=== PATIENT | male | born 1970 | race Caucasian/White ===

== ENCOUNTER 2018-09-15 16:10 | Inpatient (IN) | payer OTHER ==
[~2018-09-15] VITALS: Ht 154.9 cm; Wt 44.0 kg
[2018-09-15 18:20] VITALS: BP 101/59
--- NOTE | 2018-09-15 18:20 | NUR ---
PACKING LINE WORKER NOTES PATIENT DIRECT ADMIT FROM [facility] ON MED/SURGE DX OF ANEMIA. PATIENT A/O X3, NO ACUTE RESPIRATORY DISTRESS. PATIENT WAS COMPLAINING OF PAIN 5/10 LOWER BACK, AND BILATERAL LOWER LEGS. SKIN ASSESSMENT DONE INTACT ONLY DRYNESS BOTH FEET. PATIENT CONTENT URINAL GIVEN. V/S TAKEN T-99.5, R-20, P-95, BP-101/59, O2-97 ROOM AIR. IV ACCESS ON RIGHT WRIST INTACT. CARE PLAN DONE. IGGY DNP AWARE OF NEW PATIENT AND MEDICATION. FAMILY AWARE OF PATIENT ADMISSION. ENDORSED ONCOMING NURSE FOLLOW ADMISSION QUESTIONS.
[2018-09-15] MEDS ORDERED: LEVE250T2 PO (18:21)
[2018-09-15] MEDS ORDERED: PHEN100C4 PO (18:26)
--- NOTE | 2018-09-15 18:27 | NUR ---
TICK INSPECTOR/MED RECON OBTAINED INFO RE: HOME MEDICATION FROM PATIENT. CALLED AND SPOKE WITH BREEZY-BROTHER STATED "MY BROTHER SAID, HE ONLY TAKES DILANTIN AND HE DOESN'T REMEMBER THE DOSE". PER BROTHER "HE IS HOMELESS BY CHOICE BECAUSE HE LIKES DRINKING ONLY". PRIMARY NURSE MADE AWARE.
[2018-09-15] MEDS ORDERED: ACETAMINOPHEN 325 MG TABLET PO PRN (19:00)
[2018-09-15 20:00] VITALS: BP 103/43
--- NOTE | 2018-09-15 20:00 | NUR ---
RECEIVED PATIENT IN BED ASLEEP, EASILY AROUSABLE. AO X 3, ABLE TO MAKE NEEDS KNOWN. NO ACUTE DISTRESS NOTED. MONITORED FOR PAIN. SKIN INTACT. IV SITE PATENT, INTACT; FLUSHED. SAFETY REMINDERS GIVEN. ON LOW BED WITH BILATERAL UPPER SIDE RAILS UP. CALL [place] WITHIN EASY REACH. WILL CONTINUE TO MONITOR.
[2018-09-15 20:53] VITALS: BP 103/43
[2018-09-16] VITALS (10 sets, daily range): BP systolic 97–135; BP diastolic 59–110
[2018-09-16] MEDS ORDERED: LORAZEPAM INJ 2 MG/ML VIAL IV PRN (01:00)
[2018-09-16] MEDS ORDERED: Z GUARD REMEDY 2 OZ OINT TP PRN (01:00)
[2018-09-16] MEDS ORDERED: Potassium Chloride 20 MEQ in IV D5/ 0.9% NACL 1,000 ML IV PRN (01:00)
[2018-09-16] MEDS ORDERED: ACETAMINOPHEN 650 MG/SUPP.RECT RC PRN (01:00)
[2018-09-16] MEDS ORDERED: MORPHINE SULFATE INJ 2 MG/ML DISP.SYRIN IV PRN (01:00)
[2018-09-16] MEDS ORDERED: ONDANSETRON HCL/PF 4 MG/2 ML VIAL IVP PRN (01:00)
[2018-09-16] MEDS ORDERED: CEFTRIAXONE 1 G VIAL ONE (02:37)
[2018-09-16] MEDS: CEFTRIAXONE 1 G in IV D5W 50 ML IV SCH (02:44)
[2018-09-16] MEDS ORDERED: Thiamine 100 MG/ML VIAL ONE (03:38)
[2018-09-16] MEDS ORDERED: IV PREMIX D5 1/2NS + KCL 1,000 ML IV ONE (03:38)
[2018-09-16] MEDS ORDERED: Folic acid 1 MG/0.2 ML VIAL ONE (03:39)
[2018-09-16] MEDS: IV PREMIX D5 1/2NS + KCL 1,000 ML IV PRN (03:50)
[2018-09-16] MEDS: Folic acid 1 MG in IV D5W 50 ML IV SCH (03:51)
[2018-09-16] MEDS: Thiamine 100 MG in IV D5W 50 ML IV SCH (04:35)
--- NOTE | 2018-09-16 06:00 | NUR ---
PATIENT AWAKE. RESPIRATIONS EVEN. MONITORED FOR PAIN. DUE MEDS GIVEN WITH NO ASE NOTED. IVF INFUSING ORDERED. PATIENT TOLERATING BLOOD TRANFUSION. NO ADVERSE REACTION TO BLOOD TRANSFUSION NOTED. NEEDS ATTENDED. SAFETY PRECAUTIONS AND COMFORT MEASURES IN PLACE. WILL GIVE REPORT TO DAY SHIFT FOR CONTINUITY OF CARE.
[2018-09-16] MEDS ORDERED: PANTOPRAZOLE 40 MG VIAL IV SCH (07:30)
--- NOTE | 2018-09-16 07:35 | NUR ---
RN OPENING NOTE PT WAS RECEIVED IN BED AT LOWEST AND LOCKED POSITION WITH SIDE RAILS UP X2, A/O X3 BREATHING EVEN AND UNLABORED ON RA, NO S/S OF ANY DISTRESS OR PAIN NOTED AT THIS TIME, IV IS PATENT AND INTACT WITH BLOOD TRANSFUSION JUST FINISHING AT THIS TIME, PT IS CURRENTLY NPO, SAFETY PRECAUTIONS IN PLACE, CALL LIGHT WITHIN REACH, WILL MONITOR PT ACCORDINGLY.
[2018-09-16] MEDS ORDERED: LEVETIRACETAM (250 MG) 250 MG TABLET PO SCH (09:00)
[2018-09-16 09:24] LABS: ALBUMIN 2.1 g/dL (3.4-5.0); BILIRUBIN,TOTAL 3.5 mg/dL (0.2-1.0); CALCIUM, SERUM 6.8 mg/dL (8.5-10.1); CREATININE 0.6 mg/dL (0.6-1.3); MAGNESIUM 1.5 mg/dL (1.8-2.4); PHOSPHORUS 1.3 mg/dL (2.5-4.9); TOTAL PROTEIN, SERUM 6.5 g/dL (6.4-8.2)
[2018-09-16] MEDS: GENTAMICIN OPTH SOLN 0.3% 5 ML BOTTLE EACHEYE SCH ×4 (09:25→23:15)
[2018-09-16 09:32] LABS: THYROID STIMULATING HORMONE 4.64 uIU/mL (0.358-3.74)
[2018-09-16 09:36] LABS: BASOPHILS % (AUTO) 0.5 % (0.0-2.0); EOSINOPHILS % (AUTO) 2.6 % (0.0-6.0); HEMATOCRIT 23 % (39-51); HEMOGLOBIN 7.3 g/dL (13.5-17.5); LYMPHOCYTES # (AUTO) 1.4 /CMM (0.8-4.8); LYMPHOCYTES % (AUTO) 25.2 % (20.0-44.0); MEAN CORPUSCULAR HGB CONC 32 g/dl (31.0-36.0); MEAN CORPUSCULAR VOLUME 87 fL (80-96); MONOCYTES # (AUTO) 0.4 /CMM (0.1-1.30); MONOCYTES % (AUTO) 7.7 % (2.0-12.0); NEUTROPHILS # (AUTO) 3.5 /CMM (1.8-8.9); RED BLOOD CELL COUNT(AUTO) 2.62 MIL/uL (4.5-6.0); WHITE BLOOD COUNT (AUTO) 5.5 K/uL (4.3-11.0)
[2018-09-16 09:41] LABS: LIPASE 69 U/L (73-393)
[2018-09-16 09:44] LABS: IRON, SERUM 172 ug/dl (50-175); PLATELET COUNT (AUTO) 45 /CMM (150-450); TOTAL IRON BINDING CAPACITY 155 ug/dl (250-450)
[2018-09-16] MEDS: LEVETIRACETAM (500MG) 1,500 MG in IV NS 0.9% 100 ML IV SCH ×2 (09:56→23:15)
--- NOTE | 2018-09-16 10:14 | NUR ---
RN NOTE HOSPITALIST NANCY MARTINEZ MADE AWARE OF PT PLATELET LEVEL OF 45, NO NEW ORDERS RECEIVED AT THIS TIME
[2018-09-16 10:27] LABS: BAND % (MANUAL) 2 % (0.0-5.0); EOSINOPHILS % (MANUAL) 3 % (0-4); LYMPHOCYTES % (MANUAL) 22 % (16-48); MONOCYTES % (MANUAL) 4 % (0-11.0); NEUTROPHILS % (MANUAL) 69 (42-76)
--- NOTE | 2018-09-16 11:47 | NUR ---
Social service consult requested by TALITA Zimmerman for homelessness. Pt. is a 48 year old male who was admitted to [facility] for anemia. AMIRAH met with pt. bedside. Pt. is alert and oriented x 4. Pt. initially was guarded, however as the assessment continued pt. was more cooperative and forthcoming. Pt. appears dirty and disheveled. Pt. appears thin and frail. Pt. informed SW he has been living in his car in [place] since last February. Pt. receives GR and Food stamps, however his GR is currently needs to be reinstated. AMIRAH encouraged pt. to go to [employer] office and reinstate his GR. Pt. states he will go again to the [employer] office located at [address] [place] [phone], in [place]. Pt. informed SW he sold his car for $400 to his friend and is hoping to get it back. Pt. states, he often sells his food stamps to have a place to stay at his friend's place. AMIRAH informed pt. he is taking risk of losing his food stamps if [employer] finds out he is selling them. Prior to living in his car, pt. was living with his uncle who . Pt. states he used to drink 4 to 6 beers per day, however, now he drinks a beer per day. Pt. states he use to smoke marijuana a lot but now only smokes at night to help him fall asleep. AMIRAH offered pt. homeless nursing home placement, however pt. declined stating he is going to go back to his friend and get his car back. No other social service needs are requested at this time. AMIRAH to offer pt. homeless resources prior to discharge. Pt. will require a TAP card upon discharge. AMIRAH also encouraged pt. to go to [facility] located at [address] and link up for services with case workers there. SW is available if needed.
[2018-09-16] MEDS ORDERED: Sodium Phosphate 15 MMOL in IV D5W 250 ML IV ONE (13:00)
[2018-09-16] MEDS: ENSURE CLEAR 237 ML LIQUID (MIX BERRY) PO SCH (17:03)
[2018-09-16] MEDS: SUCRALFATE 1 G/10 ML UDC GT SCH ×2 (17:03→23:14)
[2018-09-16] MEDS: PANTOPRAZOLE 40 MG VIAL IV SCH (17:03)
[2018-09-16 17:28] LABS: OCCULT BLOOD STOOL POSITIVE (NEGATIVE)
[2018-09-16 17:28] LABS: APPEARANCE,URINE SL CLOUDY (CLEAR); BILIRUBIN,URINE 1+ (NEGATIVE); BLOOD, URINE NEGATIVE Ery/uL (NEGATIVE); KETONES,URINE TRACE (NEGATIVE); LEUKOCYTE ESTERASE ,URINE 1+ (NEGATIVE); NITRITE, URINE NEGATIVE (NEGATIVE); PROTEIN,URINE NEGATIVE (NEGATIVE); UGLUCOSE TRACE mg/dL (NEGATIVE); UROBILINOGEN,URINE >=8.0 EU/dL (0.2)
[2018-09-16 17:30] LABS: COLOR,URINE DARK YELLOW (YELLOW)
[2018-09-16 17:51] LABS: RBC,URINE 0-2 /HPF (0-2)
[2018-09-16 17:58] LABS: BACTERIA,URINE Few /HPF (None Seen); SQUAMOUS EPITHELIAL CELL,UR Few /HPF (None Seen)
--- NOTE | 2018-09-16 18:06 | NUR ---
RN CLOSING NOTE PT IN BED AT LOWEST AND LOCKED POSITION WITH SIDE RAILS UP X2, A/O X3 BREATHING EVEN AND UNLABORED ON RA, NO S/S OF ANY DISTRESS OR PAIN NOTED AT THIS TIME, IV IS PATENT AND INTACT, SAFETY PRECAUTIONS IN PLACE, CALL LIGHT WITHIN REACH, ALL NEEDS ATTENDED TO, WILL ENDORSE TO SPECIAL SERVICES COORDINATOR RN FOR AISSATOU
--- NOTE | 2018-09-16 19:40 | NUR ---
RN OPENING NOTES RECEIVED REPORT FROM DAYSHIFT TONI JACKSON. FOUND Pt AWAKE, RESTING IN BED. NO S/S OF ACUTE DISTRESS OR SOB NOTED. Pt IS A/OX3, VERBAL, ABLE TO MAKE NEEDS KNOWN. IV ACCESS ON RHAND #20G & LFA #20G; IVF D5 1/2 NS @80ML/HR. SAFETY MEASURES IN PLACE. BED LOW, LOCKED, HOB ELEVATED, SIDE RAILS UP, CALL LIGHT AND BEDSIDE TABLE WITHIN REACH. WILL CONTINUE TO MONITOR Pt's CONDITION AND SAFETY THROUGHOUT THE NIGHT.
[2018-09-17] MEDS: CEFTRIAXONE 1 G in IV D5W 50 ML IV SCH (02:46)
--- NOTE | 2018-09-17 06:25 | NUR ---
RN NOTES Pt REFUSED AM LAB DRAW AT THIS TIME. REQUESTED FOR THEM TO COME BACK LATER IN THE DAY SO HE CAN REST. WILL ENDORSE TO DAYSHIFT RN TO FOLLOW UP WITH LAB WHEN Pt IS COMPLIANT AND READY.
--- NOTE | 2018-09-17 06:35 | NUR ---
RN CLOSING NOTES NO SIGNIFICANT CHANGES IN Pt's CONDITION. NO S/S OF ACUTE DISTRESS OR SOB NOTED DURING THE NIGHT. Pt IS RESTING IN BED, RESPIRATIONS EVEN AND UNLABORED WITH EQUAL CHEST RISE AND FALL. ALL NEEDS MET AND ATTENDED TO. SAFETY MEASURES IN PLACE. WILL ENDORSE TO DAYSHIFT RN FOR Pt's AISSATOU. Addendum: 09/17/18 at 0638 by MARYSOL OLSEN RN Pt HAS BEEN NPO SINCE MIDNIGHT FOR SCHEDULED EGD.
[2018-09-17] MEDS: SUCRALFATE 1 G/10 ML UDC GT SCH ×4 (07:30→21:31)
--- NOTE | 2018-09-17 07:30 | NUR ---
RN MS NOTES PT IN BED, AWAKE, ALERT AND VERBALLY RESPONSIVE, NO COMPLAINT OF PAIN, RESPIRATIONS NORMAL, TODAY'S PLAN OF CARE DISCUSSED WITH PT, VERBALIZED UNDERSTANDING, PT INFORMED OF PLANNED EGD TODAY, CALL LIGHT WITHIN REACH, IV FLUIDS INFUSING WELL.
[2018-09-17 08:00] VITALS: BP 99/71
[2018-09-17] MEDS: IV PREMIX D5 1/2NS + KCL 1,000 ML IV PRN (08:10)
[2018-09-17] MEDS: GENTAMICIN OPTH SOLN 0.3% 5 ML BOTTLE EACHEYE SCH ×4 (08:10→20:48)
[2018-09-17] MEDS: PANTOPRAZOLE 40 MG VIAL IV SCH (08:10)
[2018-09-17] MEDS: ENSURE CLEAR 237 ML LIQUID (MIX BERRY) PO SCH ×3 (08:13→17:41)
[2018-09-17 08:24] LABS: BASOPHILS # (AUTO) 0.3 /CMM (0.0-0.2); BASOPHILS % (AUTO) 4.5 % (0.0-2.0); EOSINOPHILS % (AUTO) 2.9 % (0.0-6.0); HEMATOCRIT 23 % (39-51); HEMOGLOBIN 7.4 g/dL (13.5-17.5); LYMPHOCYTES # (AUTO) 1.6 /CMM (0.8-4.8); LYMPHOCYTES % (AUTO) 26.8 % (20.0-44.0); MEAN CORPUSCULAR HGB CONC 32 g/dl (31.0-36.0); MEAN CORPUSCULAR VOLUME 86 fL (80-96); MONOCYTES # (AUTO) 0.5 /CMM (0.1-1.30); MONOCYTES % (AUTO) 8.9 % (2.0-12.0); NEUTROPHILS # (AUTO) 3.3 /CMM (1.8-8.9); NEUTROPHILS % (AUTO) 56.9 % (43.0-81.0); PLATELET COUNT (AUTO) 59 /CMM (150-450); RED BLOOD CELL COUNT(AUTO) 2.66 MIL/uL (4.5-6.0); WHITE BLOOD COUNT (AUTO) 5.8 K/uL (4.3-11.0)
[2018-09-17 08:36] LABS: BILIRUBIN,TOTAL 2.8 mg/dL (0.2-1.0); CREATININE 0.6 mg/dL (0.6-1.3); MAGNESIUM 1.4 mg/dL (1.8-2.4); TOTAL PROTEIN, SERUM 6.3 g/dL (6.4-8.2)
[2018-09-17 08:40] LABS: POTASSIUM 2.8 mmol/L (3.5-5.1)
[2018-09-17] MEDS: LEVETIRACETAM (500MG) 1,500 MG in IV NS 0.9% 100 ML IV SCH ×2 (09:18→20:48)
[2018-09-17] MEDS: Folic acid 1 MG in IV D5W 50 ML IV SCH (09:49)
[2018-09-17 09:55] LABS: EOSINOPHILS % (MANUAL) 4 % (0-4); LYMPHOCYTES % (MANUAL) 32 % (16-48); MONOCYTES % (MANUAL) 8 % (0-11.0); NEUTROPHILS % (MANUAL) 56 (42-76)
[2018-09-17] MEDS: Thiamine 100 MG in IV D5W 50 ML IV SCH (10:23)
[2018-09-17] MEDS: Magnesium 1GM/D5W 100ML PREMIX 100 ML IV SCH ×4 (10:58→14:41)
[2018-09-17] MEDS: POTASSIUM CL. PREMIX PERIPHER. 50 ML IV SCH ×4 (11:41→14:41)
--- NOTE | 2018-09-17 13:00 | NUR ---
RN MS NOTES PT IN BED, SLEEPING, EASY TO AROUSE, ALERT AND ORIENTED, NO COMPLAINT OF PAIN, BREATHING PATTERN NORMAL, IV FLUIDS INFUSING WELL, SEEN BY DR. HORTA, ASSISTED TO BATHROOM NEEDED, NEEDS ATTENDED.
[2018-09-17 16:00] VITALS: BP 104/69
[2018-09-17] MEDS: NEXIUM 40 MG VIAL IV SCH (17:41)
--- NOTE | 2018-09-17 18:43 | NUR ---
RN MS NOTES PT IN BED, AWAKE, DENIES PAIN, NOT IN DISTRESS, CALL LIGHT WITHIN REACH, IV FLUIDS INFUSING WELL, SEEN BY BLANCA DISPLAY ASSOCIATE, PLAN FOR EGD TOMORROW, PM MEDS GIVEN ORDERED, ALL NEEDS ATTENDED.
--- NOTE | 2018-09-17 19:15 | NUR ---
MS/RN NOTES RECEIVED PT. LYING IN BED. PT. IS AWAKE, ALERT AND ORIENTED X 2-3. BREATHING EVEN AND UNLABORED ON ROOM AIR. NO SOB, RESPIRATORY DISTRESS OR COMPLAINTS OF PAIN NOTED AT THIS TIME. PT. WITH LEFT FOREARM 20 GAUGE IV SALINE LOCK PRESENT, PATENT AND INTACT. PT. WITH RIGHT WRIST 20 GAUGE PERIPHERAL IV PRESENT, PATENT AND INTACT ADMINISTERING TO PT. D5 1/2 NS WITH 20 MEQ KCL @ 80 ML/HR. PER DAYSHIFT NURSE PT. WILL BE NPO AFTER MIDNIGHT PENDING EGD TOMORROW. PER DAYSHIFT NURSE CONSENT SIGNED AND PLACED IN PT. CHART. BED LOCKED AND IN LOWEST POSITION, SIDE RAILS UP X2, CALL LIGHT WITHIN REACH, WILL CONTINUE TO MONITOR.
[2018-09-17 19:35] VITALS: BP 116/76
[2018-09-17 20:00] VITALS: BP 116/76
[2018-09-18] MEDS: CEFTRIAXONE 1 G in IV D5W 50 ML IV SCH (01:25)
--- NOTE | 2018-09-18 06:28 | NUR ---
MS/RN NOTES PT. IS LYING IN BED RESTING. BREATHING EVEN AND UNLABORED ON ROOM AIR. NO SOB, RESPIRATORY DISTRESS OR COMPLAINTS OF PAIN NOTED AT THIS TIME. PT. WITH LEFT FOREARM 20 GAUGE IV SALINE LOCK PRESENT, PATENT AND INTACT. PT. WITH RIGHT WRIST 20 GAUGE PERIPHERAL IV PRESENT, PATENT AND INTACT ADMINISTERING TO PT. D5 1/2 NS WITH 20 MEQ KCL @ 80 ML/HR. PT. REMAINS NPO SINCE MIDNIGHT PENDING EGD TODAY. ALL PT. NEEDS MET. BED LOCKED AND IN LOWEST POSITION, SIDE RAILS UP X2, CALL LIGHT WITHIN REACH, WILL ENDORSE TO DAYSHIFT NURSE FOR CONTINUITY OF CARE.
[2018-09-18 06:39] LABS: BASOPHILS # (AUTO) 0.1 /CMM (0.0-0.2); EOSINOPHILS % (AUTO) 2.3 % (0.0-6.0); HEMATOCRIT 23 % (39-51); HEMOGLOBIN 7.6 g/dL (13.5-17.5); LYMPHOCYTES # (AUTO) 1.8 /CMM (0.8-4.8); LYMPHOCYTES % (AUTO) 29.4 % (20.0-44.0); MEAN CORPUSCULAR HGB CONC 33 g/dl (31.0-36.0); MEAN CORPUSCULAR VOLUME 87 fL (80-96); MONOCYTES # (AUTO) 0.6 /CMM (0.1-1.30); MONOCYTES % (AUTO) 10.5 % (2.0-12.0); NEUTROPHILS # (AUTO) 3.5 /CMM (1.8-8.9); NEUTROPHILS % (AUTO) 56.8 % (43.0-81.0); PLATELET COUNT (AUTO) 76 /CMM (150-450); RED BLOOD CELL COUNT(AUTO) 2.66 MIL/uL (4.5-6.0); WHITE BLOOD COUNT (AUTO) 6.2 K/uL (4.3-11.0)
[2018-09-18] MEDS: IV PREMIX D5 1/2NS + KCL 1,000 ML IV PRN (06:58)
[2018-09-18 07:10] LABS: CALCIUM, SERUM 7.9 mg/dL (8.5-10.1); CREATININE 0.6 mg/dL (0.6-1.3); EOSINOPHILS % (MANUAL) 4 % (0-4); LYMPHOCYTES % (MANUAL) 35 % (16-48); MAGNESIUM 1.8 mg/dL (1.8-2.4); MONOCYTES % (MANUAL) 11 % (0-11.0); NEUTROPHILS % (MANUAL) 50 (42-76); PHOSPHORUS 1.4 mg/dL (2.5-4.9); POTASSIUM 3.2 mmol/L (3.5-5.1)
--- NOTE | 2018-09-18 07:25 | NUR ---
MS RN OPENING NOTES RECEIVED PT AWAKE IN BED IN NO ACUTE SIGNS OF DISTRESS. A/O X3. ABLE TO MAKE NEEDS KNOWN, DENIES PAIN OR ANY DISCOMFORTS AT THIS TIME. ON ROOM AIR, BREATHING EVEN AND UNLABORED. PT FOR EGD TODAY, NPO MAINTAINED. PIV'S ON LFA G #20 AND RIGHT WRIST G#20 BOTH PATENT AND INTACT. IVF OF D5 1/2 NS WITH 20MEQ KCL @ 80 ML/HR INFUSING TO RIGHT WRIST, NO S/S OF INFILTRATIONS NOTED. BED LOCKED AND IN LOWEST POSITION WITH SIDE RAILS UP X2. CALL LIGHT WITHIN REACH. WILL CONTINUE TO MONITOR.
[2018-09-18] MEDS: SUCRALFATE 1 G/10 ML UDC GT SCH ×4 (07:30→21:29)
--- NOTE | 2018-09-18 07:57 | NUR ---
RN NOTES PATIENT TRANSPORTED DOWN VIA WHEELCHAIR FOR CT OF ABDOMEN AND PELVIS WITH CONTRAST.
[2018-09-18] MEDS ORDERED: IOHEXOL-300 100 ML VIAL IV ONE (07:58)
[2018-09-18] MEDS ORDERED: CT SWABBABLE VALVE TRANS SET 1 EA INFUS.SET MC ONE (07:59)
[2018-09-18] MEDS ORDERED: IV NS 0.9% 250 ML IV ONE (07:59)
[2018-09-18] MEDS: NEXIUM 40 MG VIAL IV SCH ×2 (08:29→16:47)
[2018-09-18] MEDS: LEVETIRACETAM (500MG) 1,500 MG in IV NS 0.9% 100 ML IV SCH ×2 (08:33→21:29)
[2018-09-18] MEDS: Folic acid 1 MG in IV D5W 50 ML IV SCH (08:43)
[2018-09-18] MEDS: ENSURE CLEAR 237 ML LIQUID (MIX BERRY) PO SCH ×3 (09:00→17:38)
[2018-09-18] MEDS: Thiamine 100 MG in IV D5W 50 ML IV SCH (09:14)
[2018-09-18] MEDS ORDERED: SUCR1ORA PO (10:47)
[2018-09-18] MEDS: POTASSIUM CL. PREMIX PERIPHER. 50 ML IV SCH ×4 (11:42→15:13)
[2018-09-18] MEDS ORDERED: Sodium Phosphate 15 MMOL in IV D5W 250 ML IV ONE (12:00)
--- NOTE | 2018-09-18 13:34 | NUR ---
RN NOTES CALLED SURGERY WHAT TIME THEY WILL PICK-UP PT FOR EGD. E.R. NURSE SAID THAT PT IS NOT IN THE SCHEDULE TODAY. LEFT MESSAGE TO BLANCA MERAZ. AWAITING FOR RETURN CALL.
[2018-09-18] MEDS ORDERED: MINERAL OIL 133 ML (PYXIS) 1 EA ENEMA RC PRN (14:30)
[2018-09-18] MEDS ORDERED: MAGNESIUM CITRATE 296 ML BOTTLE PO ONE (14:30)
[2018-09-18] MEDS ORDERED: PEG 3350/NA SULF,BICARB,CL/KCL 4,000 ML BOTTLE PO ONE (14:30)
--- NOTE | 2018-09-18 14:44 | NUR ---
RN NOTES RECEIVED CALL FROM TALITA MERAZ. INFORMED HER OF CT ABDOMEN PELVIS W/O CONTRAST RESULTS. SHE ORDERED TO OBTAINED CONSENT FOR COLONOSCOPY, START CLEAR LIQUID DIET FOR PT THEN NPO POST MIDNIGHT. START GOLYTELY AND 1 BOTTLE OF MG CITRATE. IF PT DOESN'T CLEAR BOWEL MOVEMENT TONIGHT, PT WILL HAVE FLEET ENEMA X2. WILL CARRY OUT ORDER.
--- NOTE | 2018-09-18 15:09 | NUR ---
RN NOTES PATIENT INFORMED THAT EGD IS CANCELLED FOR TODAY AND THAT IT WILL BE DONE TOMORROW TOGETHER WITH COLONOSCOPY. PT GOT UPSET AND HE SAID HE WANTED TO SMOKE RIGHT NOW. PT SIGNED SMOKING AND COLONOSCOPY CONSENTS AND FILED ON CHART.
--- NOTE | 2018-09-18 15:10 | NUR ---
RN NOTES PATIENT EDUCATED ON RISKS OF SMOKING AND HE VERBALIZED UNDERSTANDING. HE SAID THAT HE JUST WANT TO SMOKE BEC HE'S STRESS AND UPSET RIGHT NOW. PT ACCOMPANIED BY STEAM TABLE ASSOCIATE TO SMOKE OUTSIDE.
[2018-09-18 16:00] VITALS: BP 115/66
--- NOTE | 2018-09-18 17:38 | NUR ---
RN NOTES RIGHT WRIST IV ACCESS DISLODGED. NEW PIV INSERTED TO RFA G#22. WILL CONTINUE TO MONITOR.
--- NOTE | 2018-09-18 18:37 | NUR ---
MS RN CLOSING NOTES PT AWAKE AND WATCHING TV IN BED AT THIS TIME. A/O X3. ABLE TO MAKE NEEDS KNOWN. PT FOR COLONOSCOPY AND EGD TOMORROW. NPO WILL BE ENFORCED POST MIDNIGHT. PT ON GOLYTELY SOLUTION P.O. IN PROGRESS. ON ROOM AIR, TOLERATING WELL WITH NO SOB NOTED ALL THROUGHOUT THE DAY. PIV'S ON LFA G #22 AND RFA G#22 BOTH PATENT AND INTACT. IVF OF D5 1/2 NS WITH 20MEQ KCL @ 80 ML/HR INFUSING TO RFA, NO S/S OF INFILTRATIONS NOTED. ALL NEEDS AND CARE ATTENDED WELL. BED LOCKED AND IN LOWEST POSITION WITH SIDE RAILS UP X2. CALL LIGHT WITHIN REACH. WILL ENDORSE TO WHEELCHAIR VAN DRIVER NURSE FOR AISSATOU
--- NOTE | 2018-09-18 19:25 | NUR ---
MS/RN NOTES RECEIVED PT. LYING IN BED. PT. IS AWAKE, ALERT AND ORIENTED X 2-3. BREATHING EVEN AND UNLABORED ON ROOM AIR. NO SOB, RESPIRATORY DISTRESS OR COMPLAINTS OF PAIN NOTED AT THIS TIME. PT. WITH LEFT FOREARM 22 GAUGE IV SALINE LOCK PRESENT, PATENT AND INTACT. PT. WITH RIGHT FOREARM 22 GAUGE PERIPHERAL IV PRESENT, PATENT AND INTACT ADMINISTERING TO PT. D5 1/2 NS WITH 20 MEQ KCL @ 80 ML/HR. PER DAYSHIFT NURSE PT. WILL BE NPO AFTER MIDNIGHT PENDING EGD AND COLONOSCOPY TOMORROW. PT. IS CURRENTLY ON CLEAR LIQUID DIET AND HAS BEGUN BOWEL PREP. PER DAYSHIFT NURSE CONSENT SIGNED AND PLACED IN PT. CHART. BED LOCKED AND IN LOWEST POSITION, SIDE RAILS UP X2, CALL LIGHT WITHIN REACH, WILL CONTINUE TO MONITOR.
[2018-09-18 20:00] VITALS: BP 100/73
[2018-09-19] MEDS: CEFTRIAXONE 1 G in IV D5W 50 ML IV SCH (02:50)
--- NOTE | 2018-09-19 06:56 | NUR ---
MS/RN NOTES PT. IS LYING IN BED RESTING. BREATHING EVEN AND UNLABORED ON ROOM AIR. NO SOB, RESPIRATORY DISTRESS OR COMPLAINTS OF PAIN NOTED AT THIS TIME. PT. WITH LEFT FOREARM 22 GAUGE IV SALINE LOCK PRESENT, PATENT AND INTACT. PT. WITH RIGHT FOREARM 22 GAUGE PERIPHERAL IV PRESENT, PATENT AND INTACT ADMINISTERING TO PT. D5 1/2 NS WITH 20 MEQ KCL @ 80 ML/HR. PT. COMPLETED BOWEL PREP. PT. REMAINS NPO SINCE MIDNIGHT PENDING EGD AND COLONOSCOPY TODAY. CONSENT SIGNED AND PLACED IN PT. CHART, CHECKLIST COMPLETED AND PLACED IN PT. CHART. ALL PT. NEEDS MET. BED LOCKED AND IN LOWEST POSITION, SIDE RAILS UP X2, CALL LIGHT WITHIN REACH, WILL ENDORSE TO DAYSHIFT NURSE FOR CONTINUITY OF CARE.
[2018-09-19 07:01] LABS: CALCIUM, SERUM 7.5 mg/dL (8.5-10.1); CREATININE 0.6 mg/dL (0.6-1.3); MAGNESIUM 1.7 mg/dL (1.8-2.4); PHOSPHORUS 1.6 mg/dL (2.5-4.9); POTASSIUM 3.7 mmol/L (3.5-5.1)
--- NOTE | 2018-09-19 07:18 | NUR ---
MS/RN NOTES PT. LEFT THE FLOOR FOR OPERATING ROOM VIA GURNEY IN STABLE CONDITION ACCOMPANIED BY OR STAFF.
--- NOTE | 2018-09-19 07:20 | NUR ---
MS/RN NOTE RECEIVED REPORT FROM HEARSE DRIVER BUT THE PATIENT IS ALREADY IN OR.
[2018-09-19] MEDS: SUCRALFATE 1 G/10 ML UDC GT SCH ×3 (07:30→17:54)
[2018-09-19] MEDS ORDERED: ANESTHESIA TRAY IN PYXIS 1 EA TRAY MC ONE (07:35)
[2018-09-19] MEDS ORDERED: MIDAZOLAM HCL 2 MG/2ML VIAL ONE (07:39)
[2018-09-19 08:00] VITALS: BP 117/77
--- NOTE | 2018-09-19 08:02 | NUR ---
MS/RN NOTE CARAFATE SUSP NOT ADMINISTERED DUE TO PATIENT IN OR FOR A SURGERY.
[2018-09-19 09:00] VITALS: BP 119/76
[2018-09-19] MEDS: ENSURE CLEAR 237 ML LIQUID (MIX BERRY) PO SCH ×3 (09:00→17:44)
--- NOTE | 2018-09-19 09:07 | NUR ---
MS/RN NOTE THE PATIENT IS RECEIVED FROM OR ON A GURNEY. TRANSFERRED THE PATIENT TO BED. PATIENT AWAKE, ALERT AND ORIENTED X2. IN ROOM AIR AND SATURATION IS AT 95%. DENIES SOB. DENIES PAIN. THE PATIENT IN STABLE CONDITION. ABDOMEN SOFT AND NON-DISTENDED. LFA G 22 PATENT AND SALINE LOCKED. RFA G 22 PATENT AND SALINE LOCKED. BED LOW AND LOCKED. SIDE RIALS UP X3. BED ALARM ON. CALL LIGHT WITHIN REACH. WILL CONTINUE TO MONITOR.
[2018-09-19 09:15] VITALS: BP 117/70
--- NOTE | 2018-09-19 09:17 | NUR ---
MS/RN NOTE DR CASTRO WRITTEN ORDERS ARE NOTED AND CARRIED OUT.
--- NOTE | 2018-09-19 09:25 | NUR ---
MS/RN NOTE ENSURE NOT GIVEN DUE TO PATIENT ON CLEAR LIQUIDS.
[2018-09-19] MEDS: NEXIUM 40 MG VIAL IV SCH ×2 (09:28→16:25)
[2018-09-19] MEDS ORDERED: FOLIC ACID 1 MG TABLET PO SCH (09:30)
[2018-09-19] MEDS ORDERED: THIAMINE HCL 100 MG TABLET PO SCH (09:30)
[2018-09-19] MEDS ORDERED: LEVETIRACETAM SOL (5 ML) 100 MG/ML UDC PO SCH (09:30)
[2018-09-19 09:32] VITALS: BP 101/73
[2018-09-19 09:45] VITALS: BP 108/76
[2018-09-19] MEDS: Magnesium 1GM/D5W 100ML PREMIX 100 ML IV SCH ×2 (11:41→12:57)
[2018-09-19] MEDS ORDERED: K PHOS NEUTRAL 250 MG TABLET PO ONE (12:00)
--- NOTE | 2018-09-19 16:20 | NUR ---
Pt. refused alf placement and resources. Pt. will be going home with his sister. SW placed Homeless patient waiver form in the chart and requested RN to have pt. sign upon discharge.
[2018-09-19] MEDS ORDERED: PROPRANOLOL HCL 10 MG TABLET PO SCH (17:30)
[2018-09-19 17:56] VITALS: BP 115/66
--- NOTE | 2018-09-19 18:26 | NUR ---
MS/RN NOTE THE PATIENT ALERT AND ORIENTED X3. IN ROOM AIR AND SATURATION IS AT 98%. DENIES SOB. RESPIRATION REGULAR AND UNLABORED. DENIES PAIN. LFA G 22 AND RFA G 22 PATENT AND SALINE LOCKED. BED LOW AND LOCKED. SIDE RAILS UP X3. CALL LIGHT WITHIN REACH. WILL ENDORSE TO CUSTODIAL MAINTENANCE WORKER.
--- NOTE | 2018-09-19 19:06 | NUR ---
MS/RN NOTE THE PATIENT ALERT AND ORIENTED X3. DISCHARGE EDUCATION GIVEN TO THE PATIENT AND SISTER. THEY BOTH VERBALIZED UNDERSTANDING. THE PATIENT WENT HOME WITH SISTER VIA PRIVATE CAR.
== END 2018-09-19 18:45 | disposition home or self-care (01) | DRG 241 ==
LOC: MEDSG2 18:04
PROVIDERS: ADMIT Internal Medicine
DX: K29.71 Gastritis, unspecified, with bleeding (principal); E43 Unspecified severe protein-calorie malnutrition; R64 Cachexia; D69.6 Thrombocytopenia, unspecified; E87.1 Hypo-osmolality and hyponatremia; E87.6 Hypokalemia; N39.0 Urinary tract infection, site not specified; R62.7 Adult failure to thrive; Z59.0 Homelessness; D50.0 Iron deficiency anemia secondary to blood loss (chronic); F17.210 Nicotine dependence, cigarettes, uncomplicated; H10.89 Other conjunctivitis; Z91.81 History of falling; G40.909 Epilepsy, unspecified, not intractable, without status epilepticus; Z91.19 Patient's noncompliance with other medical treatment and regimen; R53.1 Weakness; Z68.1 Body mass index [BMI] 19.9 or less, adult; F10.239 Alcohol dependence with withdrawal, unspecified; Y90.9 Presence of alcohol in blood, level not specified; K64.8 Other hemorrhoids; K44.9 Diaphragmatic hernia without obstruction or gangrene; K62.1 Rectal polyp; M62.50 Muscle wasting and atrophy, not elsewhere classified, unspecified site; I85.00 Esophageal varices without bleeding; K76.9 Liver disease, unspecified
CPT/HCPCS: 36415; 72020-TC; 76700-TC; 80048-TC; 80053-TC; 80061-TC; 81000-TC; 82248-TC; 82272-TC; 82378; 83540-TC; 83690-TC; 83735-TC; 84100-TC; 84443-TC; 85025-TC; 85610-TC; 86850-TC; 86921-TC; 87081-TC; 87086-TC; 93976-TC; A9563; C9113; G0378; J0696; J1953; J2250; J2270; J2704; J3411; J3475; J3480; J3490; J7030; J7042; J7050; J7060; P9016-BL; Q9967

== ENCOUNTER 2018-09-30 10:01 | Emergency (ER) | payer OTHER ==
[~2018-09-30] VITALS: Ht 167.6 cm; Wt 45.8 kg
[~2018-09-30 10:01] MED LIST: LEVE250T2 PO; PHEN100C4 PO; SUCR1ORA PO
--- NOTE | 2018-09-30 10:19 | NUR ---
PATIENT ARRIVED AT UNIT FROM HOME , BIB SISTER. PATIENT A/O X 3, WITH C/O BACK AND LEFT LEG PAIN 11/12. NO ACUTE DISTRESS AT THIS TIME. ACCOMPANIED TO ER BED 7.
--- NOTE | 2018-09-30 10:20 | NUR ---
ER MD DR HENLEY AT BEDSIDE
[2018-09-30] MEDS ORDERED: KETOROLAC TROMETHAMINE INJ 60 MG/2 ML VIAL IM ONE ×2 (10:30→10:34)
[2018-09-30 10:33] LABS: BASOPHILS # (AUTO) 0.1 /CMM (0.0-0.2); BASOPHILS % (AUTO) 1.3 % (0.0-2.0); EOSINOPHILS % (AUTO) 3.2 % (0.0-6.0); HEMATOCRIT 25 % (39-51); HEMOGLOBIN 8.1 g/dL (13.5-17.5); LYMPHOCYTES # (AUTO) 1.5 /CMM (0.8-4.8); LYMPHOCYTES % (AUTO) 21.7 % (20.0-44.0); MEAN CORPUSCULAR HGB CONC 32 g/dl (31.0-36.0); MEAN CORPUSCULAR VOLUME 94 fL (80-96); MONOCYTES # (AUTO) 0.7 /CMM (0.1-1.30); MONOCYTES % (AUTO) 9.8 % (2.0-12.0); NEUTROPHILS # (AUTO) 4.5 /CMM (1.8-8.9); PLATELET COUNT (AUTO) 224 /CMM (150-450); RED BLOOD CELL COUNT(AUTO) 2.69 MIL/uL (4.5-6.0)
[2018-09-30 10:40] LABS: CALCIUM, SERUM 7.7 mg/dL (8.5-10.1); CREATININE 0.7 mg/dL (0.6-1.3); POTASSIUM 3.6 mmol/L (3.5-5.1)
--- NOTE | 2018-09-30 11:12 | NUR ---
ASSUMING CARE OF PT, REC'D REPORT FROM TONI CHAN.
--- NOTE | 2018-09-30 11:13 | NUR ---
AWAITING RESULTS FROM CT
--- NOTE | 2018-09-30 11:36 | NUR ---
MANAGER MEDICAID LUAN AT BEDSIDE
--- NOTE | 2018-09-30 11:50 | NUR ---
AMIRAH received a call from APPLE PEELER OPERATOR Ki informing AMIRAH that pt. and his family would like to speak with AMIRAH. AMIRAH met with pt. and his sister Alma and her boyfriend Timur larkin. Pt. is alert and oriented x 4. Pt. has a history of homelessness but now resides [place] [address] [place] [address]. Pt's mailing address is his sister Alma's address [address], [address], [place]. [place]. His emergency contact is Alma . Pt's sister wanted information on Advance Directives. AMIRAH explained the Advance Directives form and process and gave the form to Alma. Pt's sister Alma is his caregiver. Pt. qualifies for [employer]. AMIRAH informed pt. and sister she will initiate the [employer]HSS application and explained the process to them. Pt. currently is in process of receiving his SSI. Pt's sister stated, pt. walks with an unsteady gait and would like a wheelchair for the pt. AMIRAH informed her she would have to request the wheelchair from pt's insurance company and his primary care physician. AMIRAH informed her she can get him a walker if that helps. Alma agreed to have a walker. AMIRAH informed pt's RN Lavern regarding pt. needing a walker due to unsteady gait. No other social service needs are requested at this time. SW is available, if needed. Addendum: 09/30/18 at 1224 by LUAN MACARIO AMIRAH initiated IHSS application and spoke with Juli. Pt' s [facility] . SW also contacted pt's sister Alma and gave her pt's [facility] case ID number.
--- NOTE | 2018-09-30 11:53 | NUR ---
Patient discharged to home in stable condition. Written and verbal after care instructions given. Patient verbalizes understanding of instruction.
--- NOTE | 2018-09-30 11:55 | NUR ---
WAITING FOR WALKER
[2018-09-30 12:07] VITALS: BP 108/69
== END 2018-09-30 12:03 | disposition home or self-care (01) ==
LOC: ER 10:01
DX: M54.42 Lumbago with sciatica, left side (principal); G40.909 Epilepsy, unspecified, not intractable, without status epilepticus
CPT/HCPCS: 36415; 72131; 80048; 85025; 96372; 99284; J1885

== ENCOUNTER 2018-10-17 08:55 | Inpatient (IN) | payer OTHER ==
[2018-10-17] VITALS (9 sets, daily range): BP systolic 102–110; BP diastolic 60–90
[~2018-10-17] VITALS: Ht 162.6 cm; Wt 49.0 kg
--- NOTE | 2018-10-17 09:15 | NUR ---
"Abdominal pain/fall/throwing up blood. Started having abdominal pain last night- went to BR around 4am fell hurt L side. n/v-blood" AA/OX4, FRIEND AT BEDSIDE, NO DISTRESS NOTED, BREATHING EVEN AND UNLABORED, KEPT COMFORTABLE, ATTACHED TO THE GLOVE PRESSER.
[2018-10-17] MEDS ORDERED: ONDANSETRON HCL/PF 4 MG/2 ML VIAL ONE (09:29)
[2018-10-17] MEDS ORDERED: IV NS 0.9% 1,000 ML BAG IV ONE ×2 (09:30→10:30)
[2018-10-17] MEDS ORDERED: ONDANSETRON HCL/PF 4 MG/2 ML VIAL IVP ONE (09:30)
[2018-10-17] MEDS ORDERED: PANTOPRAZOLE 80 MG in IV NS 0.9% 500 ML IV ONE (09:30)
[2018-10-17 09:39] LABS: BASOPHILS # (AUTO) 0.1 /CMM (0.0-0.2); NEUTROPHILS # (AUTO) 7.9 /CMM (1.8-8.9)
[2018-10-17 09:44] LABS: EOSINOPHILS % (AUTO) 2.4 % (0.0-6.0); LYMPHOCYTES # (AUTO) 3.5 /CMM (0.8-4.8); LYMPHOCYTES % (AUTO) 26.9 % (20.0-44.0); MEAN CORPUSCULAR HGB CONC 33 g/dl (31.0-36.0); MEAN CORPUSCULAR VOLUME 87 fL (80-96); MONOCYTES # (AUTO) 1.1 /CMM (0.1-1.30); MONOCYTES % (AUTO) 8.5 % (2.0-12.0); NEUTROPHILS % (AUTO) 61.2 % (43.0-81.0); PLATELET COUNT (AUTO) 256 /CMM (150-450); RED BLOOD CELL COUNT(AUTO) 2.12 MIL/uL (4.5-6.0); WHITE BLOOD COUNT (AUTO) 12.9 K/uL (4.3-11.0)
[2018-10-17 09:45] LABS: HEMATOCRIT 18 % (39-51); HEMOGLOBIN 6.1 g/dL (13.5-17.5)
[2018-10-17] MEDS ORDERED: PARO10TA86 PO (09:54)
[2018-10-17] MEDS ORDERED: CHOL20004 PO (09:54)
[2018-10-17] MEDS ORDERED: LEVE500T9 PO (09:54)
[2018-10-17] MEDS ORDERED: METH-406 PO (09:55)
--- NOTE | 2018-10-17 09:57 | NUR ---
CALLED FOR BED AND TURNED IN MOVE SHEET
[2018-10-17] MEDS ORDERED: NEXIUM 40 MG VIAL IV ONE (10:00)
[2018-10-17] MEDS ORDERED: OCTREOTIDE 1,250 MCG in IV NS 0.9% 247.5 ML IV PRN ×2 (10:00→13:30)
[2018-10-17 10:08] LABS: ALANINE AMINOTRANSFERASE 48 U/L (12-78); ALBUMIN 2.1 g/dL (3.4-5.0); ALKALINE PHOSPHATASE 113 U/L (46-116); ASPARTATE AMINOTRANSFERASE 77 U/L (15-37); B-TYPE NATRIURETIC PEPTIDE 59 PG/ML (0-125); BILIRUBIN,DIRECT 0.5 mg/dL (0.0-0.2); BILIRUBIN,TOTAL 0.8 mg/dL (0.2-1.0); CALCIUM, SERUM 8.1 mg/dL (8.5-10.1); CARBON DIOXIDE 28 mmol/L (21-32); CHLORIDE 102 mmol/L (98-107); CREATININE 0.8 mg/dL (0.6-1.3); GLUCOSE 114 mg/dL (74-106); POTASSIUM 5.2 mmol/L (3.5-5.1); SODIUM SERUM 135 mmol/L (136-145); TOTAL PROTEIN, SERUM 6.9 g/dL (6.4-8.2); UREA NITROGEN, BLOOD 26 mg/dL (7-18)
[2018-10-17 10:15] LABS: BAND % (MANUAL) 7 % (0.0-5.0); EOSINOPHILS % (MANUAL) 5 % (0-4); LYMPHOCYTES % (MANUAL) 21 % (16-48); MONOCYTES % (MANUAL) 17 % (0-11.0); NEUTROPHILS % (MANUAL) 50 (42-76)
[2018-10-17] MEDS ORDERED: CEFTRIAXONE 1GM BAG (ER ONLY) 50 ML IV ONE ×2 (10:16→10:30)
--- NOTE | 2018-10-17 10:20 | NUR ---
[facility]ANNER BED 111-1
--- NOTE | 2018-10-17 10:22 | NUR ---
CALLED MARCIA ITS [facility]LE
--- NOTE | 2018-10-17 10:57 | NUR ---
REPORT GIVEN TO TONI PEREZ FOR CONT OF CARE.
--- NOTE | 2018-10-17 11:25 | NUR ---
BLOOD TRANSFUSION STARTED AT 1112, VITALS STABLE AND MONITORED AT THIS TIME, NO ADVERSE REACTION OBSERVED. PATIENT AA/OX4, TOLERATING BLOOD TRANSFUSION. FAMILY AT BEDSIDE.
--- NOTE | 2018-10-17 11:45 | NUR ---
PATIENT ARRIVED TO UNIT PER ACLS PROTOCOL. A/OX4, NO SOB OR ACUTE DISTRESS NOTED. BP 104/60. TELE MONITOR ATTACHED, SINUS RHYTHM HR 88. DENIES NAUSEA AND DIZZINESS AT THIS TIME. ABDOMEN TENDER AND SOFT. IV SITE L AC INFUSING RBC @100mL/HR AND R AC 18G INFUSING OCTREOTIDE @50mcg=10mL/HR ORDERED. NO S/S INFILTRATION NOTED. ADMISSION ORDERS RECEIVED AND CARRIED OUT. BED LOCKED, LOW, SIDE RAILS UPX2, CALL LIGHT WITHIN REACH, PATIENT ABLE TO MAKE NEEDS KNOWN. WILL CONTINUE TO MONITOR
[2018-10-17] MEDS ORDERED: IV NS 0.9% 1,000 ML IV PRN (12:59)
[2018-10-17] MEDS ORDERED: ONDANSETRON HCL/PF 4 MG/2 ML VIAL IVP PRN (13:00)
[2018-10-17] MEDS ORDERED: ACETAMINOPHEN 325 MG TABLET PO PRN (13:00)
[2018-10-17] MEDS ORDERED: MAGNESIUM HYDROXIDE 30 ML UDC PO PRN (13:00)
[2018-10-17] MEDS ORDERED: Z GUARD REMEDY 2 OZ OINT TP PRN (13:00)
[2018-10-17] MEDS ORDERED: MAG HYDROX/AL HYDROX/SIMETH 30 ML UDC PO PRN (13:00)
[2018-10-17] MEDS ORDERED: ZOLPIDEM TARTRATE 5 MG TABLET PO PRN (13:00)
--- NOTE | 2018-10-17 13:00 | NUR ---
1U RBC OUT OF 2U RBC INFUSED. NO S/S TRANSFUSION REACTION, VITALS STABLE, SEE INTERVENTIONS. Addendum: 10/18/18 at 1459 by REYES FRANKLIN RN CHARTED IN ERROR, PLEASE DISREGARD.
[2018-10-17] MEDS ORDERED: LEVETIRACETAM (500MG) 500 MG in IV NS 0.9% 100 ML IV SCH (14:00)
--- NOTE | 2018-10-17 15:00 | NUR ---
1U OF 2U RBC ORDERED COMPLETE. NO S/S REACTION, SEE INTERVENTIONS
--- NOTE | 2018-10-17 15:25 | NUR ---
UNIT #2 OF 2U RBC TRANSFUSION BEGUN.
[2018-10-17] MEDS: NEXIUM 40 MG VIAL IV SCH ×2 (16:15→21:04)
[2018-10-17] MEDS: LEVETIRACETAM (500MG) 500 MG in IV NS 0.9% 100 ML IV SCH ×2 (16:15→21:03)
[2018-10-17] MEDS: IV NS 0.9% 1,000 ML IV PRN (18:17)
--- NOTE | 2018-10-17 19:00 | NUR ---
2/2 ORDERED RBC COMPLETE. NO S/S TRANSFUSION REACTION. HGB RECHECK ORDERED IN [address] QUINN
--- NOTE | 2018-10-17 19:20 | NUR ---
SUZAN RN CLOSING NOTE REPORT GIVEN TO GRAVITY PROSPECTING SUPERVISOR RN FOR AISSATOU. NO SIGNIFICANT CHANGES THROUGHOUT SHIFT. VITALS MONITORED PER UNIT PROTOCOL AND STABLE. NO EPISODES OF EMESIS, HOWEVER PATIENT REPORTED NAUSEA. ZOFRAN GIVEN X1, HIGH FOWLERS POSITION MAINTAINED FOR ASPIRATION PRECAUTIONS. NPO STATUS MAINTAINED, PATIENT VERBALIZES UNDERSTANDING. PER DR. CHELE QUINN, GI HAS BEEN CONSULTED.
--- NOTE | 2018-10-17 20:00 | NUR ---
SUZAN NOTES RECEIVED PT AWAKE ALERT,FOLLOWS COMMANDS,2ND UNIT PRBC TRANSFUSION,NO TRANSFUSION REACTION NOTED.RECEIVING SANDOSTATIN AT 5OMCG/MIN.NO ACTIVE BLEEDING NOTED.MONITOR SHOWS NSR..OFFERS NO COMPLAINTS,DENIES PAIN OR DISCOMFORT.
[2018-10-17 20:23] LABS: BASOPHILS # (AUTO) 0.1 /CMM (0.0-0.2); BASOPHILS % (AUTO) 0.8 % (0.0-2.0); EOSINOPHILS % (AUTO) 3.2 % (0.0-6.0); HEMATOCRIT 24 % (39-51); HEMOGLOBIN 8.3 g/dL (13.5-17.5); LYMPHOCYTES # (AUTO) 2.9 /CMM (0.8-4.8); LYMPHOCYTES % (AUTO) 26.2 % (20.0-44.0); MEAN CORPUSCULAR HGB CONC 34 g/dl (31.0-36.0); MEAN CORPUSCULAR VOLUME 87 fL (80-96); MONOCYTES % (AUTO) 8.8 % (2.0-12.0); NEUTROPHILS # (AUTO) 6.9 /CMM (1.8-8.9); PLATELET COUNT (AUTO) 186 /CMM (150-450); RED BLOOD CELL COUNT(AUTO) 2.81 MIL/uL (4.5-6.0); WHITE BLOOD COUNT (AUTO) 11.3 K/uL (4.3-11.0)
[2018-10-18] VITALS: BP 109/74
--- NOTE | 2018-10-18 | NUR ---
SUZAN NOTES VITAL SIGNS STABLE.VOIDING EL URINE.OFFERS NO COMPLAINTS.NO SIGN OF BLEEDING
[2018-10-18 04:00] VITALS: BP 113/73
--- NOTE | 2018-10-18 06:10 | NUR ---
SUZAN NOTES NO SIGN OF BLEEDING.REMAINS ON SANDOSTATIN AT 50MCG/MINUTE.OFFERS NO COMPLAINTS.SLEPT MOST OF THE NIGHT.MONITOR NSR.
[2018-10-18 07:15] LABS: BASOPHILS # (AUTO) 0.1 /CMM (0.0-0.2); EOSINOPHILS % (AUTO) 4.4 % (0.0-6.0); HEMATOCRIT 24 % (39-51); HEMOGLOBIN 8.2 g/dL (13.5-17.5); LYMPHOCYTES # (AUTO) 2.5 /CMM (0.8-4.8); LYMPHOCYTES % (AUTO) 24.3 % (20.0-44.0); MEAN CORPUSCULAR HGB CONC 34 g/dl (31.0-36.0); MEAN CORPUSCULAR VOLUME 87 fL (80-96); MONOCYTES # (AUTO) 0.8 /CMM (0.1-1.30); MONOCYTES % (AUTO) 8.1 % (2.0-12.0); NEUTROPHILS # (AUTO) 6.3 /CMM (1.8-8.9); NEUTROPHILS % (AUTO) 62.2 % (43.0-81.0); PLATELET COUNT (AUTO) 198 /CMM (150-450); RED BLOOD CELL COUNT(AUTO) 2.76 MIL/uL (4.5-6.0); WHITE BLOOD COUNT (AUTO) 10.2 K/uL (4.3-11.0)
--- NOTE | 2018-10-18 07:30 | NUR ---
RN NOTE: RECEIVED PATIENT IN BED, ASLEEP BUT AROUSABLE WITH VERBAL CUES AND TACTILE STIMULI. ALERT AND VERBALLY RESPONSIVE AND ABLE TO MAKE HIS NEEDS KNOWN. BREATHING EVENLY AND UNLABORED SATURATING 99% IN ROOM AIR. DENIED ANY PAIN AT THIS TIME. ON LICENSED OPTICIAN SR HR= 80. PATIENT WAS RECEIVING IVF OF NS@80ML/HR. HOB ELEVATED. PATIENT KEPT NPO PER MD ORDER. AFEBRILE. SKIN WARM TO TOUCH. AWAITING FOR GI DOCTOR TO SEE AND ASSESS THE PATIENT. BED ALARMED AND LOCKED AT ALL TIMES. CALL LIGHT WITHIN REACH. NEEDS ANTICIPATED.
[2018-10-18 07:51] LABS: ALBUMIN 1.9 g/dL (3.4-5.0); BILIRUBIN,TOTAL 1.1 mg/dL (0.2-1.0); CALCIUM, SERUM 7.5 mg/dL (8.5-10.1); CREATININE 0.8 mg/dL (0.6-1.3); MAGNESIUM 1.4 mg/dL (1.8-2.4); PHOSPHORUS 3.8 mg/dL (2.5-4.9); POTASSIUM 3.8 mmol/L (3.5-5.1); TOTAL PROTEIN, SERUM 6.1 g/dL (6.4-8.2)
[2018-10-18 08:00] VITALS: BP 105/80
[2018-10-18] MEDS: IV NS 0.9% 1,000 ML IV PRN (08:15)
[2018-10-18] MEDS: LEVETIRACETAM (500MG) 500 MG in IV NS 0.9% 100 ML IV SCH ×2 (08:51→21:16)
[2018-10-18] MEDS: NEXIUM 40 MG VIAL IV SCH ×2 (08:52→21:16)
[2018-10-18] MEDS ORDERED: CEFTRIAXONE 1 G VIAL IM SCH (09:00)
[2018-10-18] MEDS: Magnesium 1GM/D5W 100ML PREMIX 100 ML IV SCH ×4 (09:03→12:25)
[2018-10-18] MEDS: CEFTRIAXONE 1 G in IV D5W 50 ML IV SCH (10:05)
--- NOTE | 2018-10-18 11:45 | NUR ---
RN NOTE: RECEIVED A TELEPHONE ORDER FROM DR. QUINN TO DC SANDOSTATIN AND CONTINUE THE NEXIUM IV. ORDER NOTED AND CARRIED OUT. PATIENT MADE AWARE.
--- NOTE | 2018-10-18 12:30 | NUR ---
RN NOTE: URINE WAS COLLECTED VIA A CLEAN CATCH IN A URINAL. CALLED AND INFORMED LAB REGARDING THE URINE SPECIMEN READY FOR PICK-UP ON THE SPECIMEN REFRIGERATOR.
[2018-10-18 13:09] LABS: APPEARANCE,URINE CLEAR (CLEAR); BILIRUBIN,URINE NEGATIVE (NEGATIVE); BLOOD, URINE NEGATIVE Ery/uL (NEGATIVE); COLOR,URINE DARK YELLO (YELLOW); KETONES,URINE NEGATIVE (NEGATIVE); LEUKOCYTE ESTERASE ,URINE NEGATIVE (NEGATIVE); NITRITE, URINE NEGATIVE (NEGATIVE); PH,URINE 5.5 (5.0-8.0); PROTEIN,URINE NEGATIVE (NEGATIVE); UGLUCOSE NEGATIVE (NEGATIVE); UROBILINOGEN,URINE 0.2 EU/dL (0.2)
--- NOTE | 2018-10-18 13:21 | NUR ---
BAG #2 OF RBC INFUSING. WILL CONTINUE TO MONITOR Addendum: 10/18/18 at 1456 by REYES FRANKLIN RN ERROR, PLEASE DISREGARD. WRONG DATE/TIME DOCUMENTATION
--- NOTE | 2018-10-18 14:00 | NUR ---
RN NOTE: SPOKE WITH BLANCA MERAZ NP REGARDING THE CONSULTATION FOR THE PATIENT DUE TO POSSIBLE UPPER GI BLEED. PER Av MERAZ NP SHE WILL BE GOING TO THE UNIT TO SEE THE PATIENT. PATIENT MADE AWARE.
[2018-10-18 16:00] VITALS: BP 112/83
--- NOTE | 2018-10-18 16:57 | NUR ---
RN NOTE: RECEIVED A PHONE CALL FROM BLANCA MERAZ NP THAT SHE WOULD NOT BE ABLE TO SEE THE PATIENT TODAY, BUT WILL SEE HIM BY TOMORROW. Av MERAZ NP WAS GIVEN PERTINENT INFORMATION REGARDING THE PATIENT INCLUDING HIS LABS FROM ADMISSION AND TODAY. TELEPHONE ORDER FOR OCCULT BLOOD STOOL AND START PATIENT ON CLEAR LIQUID DIET FOR TONIGHT. ORDER, NOTED AND CARRIED OUT. PATIENT MADE AWARE.
--- NOTE | 2018-10-18 19:15 | NUR ---
MS RN NOTE RECEIVED PT IN STABLE CONDITION A/O X3, CURRENTLY ASLEEP IN BED, EASILY RESPONDS WHEN NAME IS CALLED. NO SIGNS OF SOB OR DISTRESS, NO C/O PAIN. IV IN RFA AND LAC IN PLACE WITH IVF INFUSING. PT INSTRUCTED NOT TO GET OUT OF BED, WITH VERBALIZATION OF UNDERSTANDING. ALL CURRENT NEEDS ATTENDED TO. BED LOW, LOCKED, BED ALARM ON, UPPER RAILS UP, CALL LIGHT WITHIN REACH. WILL CONT. TO MONITOR.
--- NOTE | 2018-10-18 19:50 | NUR ---
RN NOTE: BEDSIDE REPORT WAS GIVEN TO PM SHIFT NURSE FOR CONTINUITY OF CARE. PATIENT ATE 100% OF HIS DINNER MEAL. PATIENT REMAINED ON STABLE CONDITION. NO BOWEL MOVEMENT WAS NOTED DURING THE SHIFT. NO S/S OF BLEEDING NOTED WITHIN THE SHIFT.
[2018-10-18 20:00] VITALS: BP 112/80
[2018-10-19] VITALS: BP 112/83
--- NOTE | 2018-10-19 05:50 | NUR ---
MS RN NOTE PT REFUSING FOR BEDDING TO BE CHANGED, STATING THAT IT WAS JUST CHANGED YESTERDAY. BEDDING REMAINS CLEAN AND DRY AT THE MOMENT. MADE PT AWARE THAT IF BEDDING IS WET OR WOULD LIKE IT TO BE CHANGED, WE CAN. PT VERBALIZES UNDERSTANDING. WILL CONT. TO MONITOR.
--- NOTE | 2018-10-19 06:24 | NUR ---
MS RN NOTE PT IN STABLE CONDITION A/O X3, CURRENTLY ASLEEP IN BED, EASILY RESPONDS WHEN NAME IS CALLED. NO SIGNS OF SOB OR DISTRESS, NO C/O PAIN. IV IN LFA AND RAC IN PLACE WITH IVF INFUSING. PT INSTRUCTED NOT TO GET OUT OF BED, WITH VERBALIZATION OF UNDERSTANDING. ALL CURRENT NEEDS ATTENDED TO. BED LOW, LOCKED, BED ALARM ON, UPPER RAILS UP, CALL LIGHT WITHIN REACH. WILL CONT. TO MONITOR AND ENDORSE TO NEXT SHIFT FOR AISSATOU.
[2018-10-19 06:25] LABS: BASOPHILS # (AUTO) 0.1 /CMM (0.0-0.2); BASOPHILS % (AUTO) 1.1 % (0.0-2.0); EOSINOPHILS % (AUTO) 5.7 % (0.0-6.0); HEMATOCRIT 24 % (39-51); HEMOGLOBIN 8.2 g/dL (13.5-17.5); LYMPHOCYTES # (AUTO) 2.4 /CMM (0.8-4.8); LYMPHOCYTES % (AUTO) 26.5 % (20.0-44.0); MEAN CORPUSCULAR HGB CONC 34 g/dl (31.0-36.0); MEAN CORPUSCULAR VOLUME 88 fL (80-96); MONOCYTES # (AUTO) 0.7 /CMM (0.1-1.30); MONOCYTES % (AUTO) 8.1 % (2.0-12.0); NEUTROPHILS # (AUTO) 5.4 /CMM (1.8-8.9); NEUTROPHILS % (AUTO) 58.6 % (43.0-81.0); PLATELET COUNT (AUTO) 186 /CMM (150-450); RED BLOOD CELL COUNT(AUTO) 2.75 MIL/uL (4.5-6.0); WHITE BLOOD COUNT (AUTO) 9.2 K/uL (4.3-11.0)
[2018-10-19 06:43] LABS: CALCIUM, SERUM 7.6 mg/dL (8.5-10.1); CREATININE 0.7 mg/dL (0.6-1.3); MAGNESIUM 1.5 mg/dL (1.8-2.4); PHOSPHORUS 4.2 mg/dL (2.5-4.9); POTASSIUM 3.9 mmol/L (3.5-5.1)
--- NOTE | 2018-10-19 07:10 | NUR ---
RN INITIAL NOTE PATIENT IN BED, AWAKE AND ALERT X3. NO COMPLAINS OF ANY PAIN NOR SOB. ON ROOM AIR. HAS A RIGHT FA #18 AND LEFT AC #18 WITH NS AT 80 ML/HR. STOOL OB PENDING. ON CLEAR LIQUID DIET. BED LOCKED AND IN LOWEST POSITION. CALL LIGHT WITHIN REACH. WILL CONTINUE TO MONITOR
[2018-10-19 08:00] VITALS: BP 113/85
[2018-10-19] MEDS: LEVETIRACETAM (500MG) 500 MG in IV NS 0.9% 100 ML IV SCH ×2 (08:33→21:29)
[2018-10-19] MEDS: NEXIUM 40 MG VIAL IV SCH ×2 (08:33→21:30)
[2018-10-19] MEDS: CEFTRIAXONE 1 G in IV D5W 50 ML IV SCH (09:51)
[2018-10-19] MEDS: IV NS 0.9% 1,000 ML IV PRN ×2 (12:33→22:38)
[2018-10-19] MEDS: NICOTINE PATCH (21MG) 21 MG PATCH.TD24 TD SCH (13:57)
--- NOTE | 2018-10-19 13:58 | NUR ---
RN NOTE DR QUINN AT BEDSIDE, PATIENT WAS REQUESTING IF HE CAN GO OUTSIDE AND SMOKE. DR QUINN SAID HE CANT AND ORDERED A NICOTINE PATCH 21 MG DAILY. ORDER NOTED AND CARRIED OUT. PATIENT AWARE OF THE NEW ORDER
--- NOTE | 2018-10-19 14:35 | NUR ---
RN NOTE COLLECTED STOOL SAMPLE. NOTED BLACK AND TARRY STOOL. CALLED LAB TO GARAGE MANAGER
[2018-10-19 16:00] VITALS: BP 114/85
[2018-10-19 16:16] LABS: OCCULT BLOOD STOOL POSITIVE (NEGATIVE)
--- NOTE | 2018-10-19 17:07 | NUR ---
RN NOTE BLANCA, COGNOS ANALYST AT BEDSIDE. AWARE OF THE BLACK TARRY STOOL AND POSITIVE OB STOOL. NEW ORDERS: CARAFATE 1G TID, AMMONIA LEVEL, LFT, BILIRUBIN TOTAL AND DIRECT, AND CBC ALL FOR TOMORROW AT 0500. LAB CALLED, PATIENT HAS A CRITICAL LACTIC ACID LEVEL OF 2.1. PAGED DR QUINN THROUGH [email or web address], TALKED TO BALDEMAR. WAITING FOR A CALL BACK FROM DR QUINN
[2018-10-19] MEDS: SUCRALFATE 1 G TABLET PO SCH (17:12)
--- NOTE | 2018-10-19 17:49 | NUR ---
RN NOTE DR QUINN IN THE UNIT, AWARE OF THE PATIENT'S LACTIC ACID OF 2.1. NEW ORDER OF CBC STAT AND CHANGE DIET TO SOFT FOR TOMORROW AM
[2018-10-19 18:37] LABS: BASOPHILS # (AUTO) 0.2 /CMM (0.0-0.2); BASOPHILS % (AUTO) 1.8 % (0.0-2.0); EOSINOPHILS % (AUTO) 3.6 % (0.0-6.0); HEMATOCRIT 25 % (39-51); HEMOGLOBIN 8.7 g/dL (13.5-17.5); LYMPHOCYTES # (AUTO) 2.3 /CMM (0.8-4.8); LYMPHOCYTES % (AUTO) 22.3 % (20.0-44.0); MEAN CORPUSCULAR HGB CONC 34 g/dl (31.0-36.0); MEAN CORPUSCULAR VOLUME 88 fL (80-96); MONOCYTES # (AUTO) 0.7 /CMM (0.1-1.30); MONOCYTES % (AUTO) 7.2 % (2.0-12.0); NEUTROPHILS # (AUTO) 6.8 /CMM (1.8-8.9); NEUTROPHILS % (AUTO) 65.1 % (43.0-81.0); PLATELET COUNT (AUTO) 195 /CMM (150-450); RED BLOOD CELL COUNT(AUTO) 2.88 MIL/uL (4.5-6.0); WHITE BLOOD COUNT (AUTO) 10.4 K/uL (4.3-11.0)
--- NOTE | 2018-10-19 18:38 | NUR ---
RN CLOSING NOTE PATIENT IN BED, AWAKE AND ALERT. NO COMPLAINS OF ANY PAIN NOR SOB AT THIS TIME. ALL MEDS GIVEN. HAD 1X BLACK TARRY STOOL, POSITIVE TO OB. DIET CHANGE TO SOFT DIET PER CHELE QUINN. HAS RIGHT FA #18 INTACT, PATENT. AND LEFT AC #18 WITH NS AT 80 ML/HR. CBC STAT ORDERED PER MD, RESULTS PENDING AT THIS TIME. BECAUSE OF THE LACTIC ACID 2.1. BED LOCKED AND IN LOWEST POSITION. CALL LIGHT WITHIN REACH. WILL ENDORSE TO NOC SHIFT FOR AISSATOU
[2018-10-19 18:43] LABS: BILIRUBIN,DIRECT 0.5 mg/dL (0.0-0.2)
--- NOTE | 2018-10-19 19:30 | NUR ---
MS/RN RECEIVE PATIENT AWAKE, ALERT, ORIENTED, COMFORTABLE, NO C/O PAIN, NO DISTRESS NOTED, CALL LIGHT IN REACH. WILL MONITOR.
[2018-10-19 20:00] VITALS: BP 118/86
[2018-10-19] MEDS ORDERED: IV NS 0.9% 500 ML IV ONE (21:30)
--- NOTE | 2018-10-20 01:26 | NUR ---
MS/RN AT 2114, LACTIC ACID RESULT WHICH WAS DONE AT AROUND 1800 WAS 2.0, CALLED [facility], SPOKE TO TALITA BEARD, ORDERS RECEIVED FOR 500 MLS. NS BOLUS AND LACTIC ACID LEVEL AT 0500. ORDERS WERE CARRIED OUT.
[2018-10-20 04:00] VITALS: BP 118/86
--- NOTE | 2018-10-20 06:24 | NUR ---
MS/RN PATIENT STILL SLEEPING AT THIS TIME, APPEAR COMFORTABLE, NO SIGNS OF DISTRESS NOTED, ALL NEEDS ATTENDED AT THIS TIME, WILL CONTINUE TO MONITOR.
[2018-10-20 07:05] LABS: BASOPHILS # (AUTO) 0.1 /CMM (0.0-0.2); BASOPHILS % (AUTO) 0.6 % (0.0-2.0); HEMATOCRIT 26 % (39-51); HEMOGLOBIN 8.8 g/dL (13.5-17.5); LYMPHOCYTES # (AUTO) 2.2 /CMM (0.8-4.8); LYMPHOCYTES % (AUTO) 16.9 % (20.0-44.0); MEAN CORPUSCULAR HGB CONC 34 g/dl (31.0-36.0); MEAN CORPUSCULAR VOLUME 88 fL (80-96); MONOCYTES # (AUTO) 0.9 /CMM (0.1-1.30); MONOCYTES % (AUTO) 6.8 % (2.0-12.0); NEUTROPHILS # (AUTO) 9.4 /CMM (1.8-8.9); NEUTROPHILS % (AUTO) 72.7 % (43.0-81.0); PLATELET COUNT (AUTO) 187 /CMM (150-450); RED BLOOD CELL COUNT(AUTO) 2.95 MIL/uL (4.5-6.0)
[2018-10-20 07:25] LABS: ALBUMIN 1.9 g/dL (3.4-5.0); BILIRUBIN,DIRECT 0.6 mg/dL (0.0-0.2); BILIRUBIN,TOTAL 1.1 mg/dL (0.2-1.0); CALCIUM, SERUM 7.3 mg/dL (8.5-10.1); CREATININE 0.6 mg/dL (0.6-1.3); POTASSIUM 2.9 mmol/L (3.5-5.1); TOTAL PROTEIN, SERUM 6.3 g/dL (6.4-8.2)
[2018-10-20 07:30] LABS: MAGNESIUM 1.1 mg/dL (1.8-2.4)
[2018-10-20 08:00] VITALS: BP 105/75
--- NOTE | 2018-10-20 08:00 | NUR ---
MS1/RN AM SHIFT INITIAL NOTES RECEIVED PT AWAKE IN BED, PT A/O X 4, NO ACUTE BLEEDING NOTED AT THIS TIME, COMPLAINT OF PAIN OF LEGS RATED 8/10. ON ROOM AIR, LUNG SOUNDS CLEAR, RESPIRATIONS EVEN AND UNLABORED. WITH ON GOING IV INFUSION OF NS @ 80CC/HR, IV SITE PATENT WITH NO S/S OF INFECTION. SCHEDULED AM MEDS TO BE GIVEN, INCLUDING PRN PAIN MEDICATION. CL WITHIN REACHED AND SAFETY MAINTAINED. ON GOING MONITORING.
[2018-10-20] MEDS: LEVETIRACETAM (500MG) 500 MG in IV NS 0.9% 100 ML IV SCH (08:55)
[2018-10-20] MEDS: SUCRALFATE 1 G TABLET PO SCH ×3 (08:55→18:17)
[2018-10-20] MEDS: NICOTINE PATCH (21MG) 21 MG PATCH.TD24 TD SCH (08:55)
[2018-10-20] MEDS: HYDROCODONE/APAP 5/325MG 1 EACH TABLET PO PRN (08:58)
[2018-10-20] MEDS: IV NS 0.9% 1,000 ML IV PRN (09:13)
[2018-10-20] MEDS: NEXIUM 40 MG VIAL IV SCH ×2 (09:47→21:17)
[2018-10-20] MEDS: CEFTRIAXONE 1 G in IV D5W 50 ML IV SCH (10:44)
[2018-10-20] MEDS ORDERED: POTASSIUM CHLORIDE 20 MEQ POWDER PACKET PO SCH (11:30)
[2018-10-20] MEDS ORDERED: LACTULOSE 10 G/15 ML UDC (PYXIS) PO PRN (11:30)
[2018-10-20] MEDS: Magnesium 1GM/D5W 100ML PREMIX 100 ML IV SCH ×4 (11:37→15:33)
[2018-10-20] MEDS: FUROSEMIDE 40 MG TABLET PO SCH (11:38)
[2018-10-20] MEDS: SPIRONOLACTONE 25 MG TABLET PO SCH (11:38)
[2018-10-20 16:00] VITALS: BP 100/71
--- NOTE | 2018-10-20 19:40 | NUR ---
MS1/RN AM SHIFT END NOTES NO ACUTE CHANGE OF CONDITION NOTED DURING THE SHIFT. ALL NEEDS MET. PT ENDORSED TO PM NURSE TO CONTINUE CARE.
[2018-10-20 20:00] VITALS: BP 120/82
--- NOTE | 2018-10-20 20:00 | NUR ---
MS RN NOTES RECEIVED PATIENT AWAKE AND CALM IN BED WITH NO DISTRESS NOTED. CALL LIGHT WITHIN REACH. PERIPHERAL LINE INTACT AND PATENT. ENCOURAGED USE OF CALL LIGHT FOR ASSISTANCE AND VERBALIZED GOOD UNDERSTANDING. BED IN LOW LOCK SETTING. ALL BELONGINGS KEPT NEAR BEDSIDE. WILL CONTINUE TO MONITOR.
[2018-10-20] MEDS: LEVETIRACETAM SOL (5 ML) 100 MG/ML UDC PO SCH (21:35)
[2018-10-21] VITALS: BP 120/82
[2018-10-21] MEDS: IV NS 0.9% 1,000 ML IV PRN (02:44)
[2018-10-21] MEDS: HYDROCODONE/APAP 5/325MG 1 EACH TABLET PO PRN ×2 (02:55→08:47)
[2018-10-21 04:00] VITALS: BP 97/66
--- NOTE | 2018-10-21 06:38 | NUR ---
MS RN NOTES PATIENT ASLEEP IN BED WITH NO DISTRESS NOTED. CALL LIGHT WITHIN REACH. PERIPHERAL LINES INTACT AND PATENT. ALL DUE MEDS GIVEN ORDERED WITH NO ASE NOTED. NO FURTHER C/O PAIN OR DISCOMFORT. BED IN LOW LOCK SETTING. ALL BELONGINGS KEPT NEAR BEDSIDE. WILL CONTINUE TO MONITOR.
[2018-10-21 07:30] LABS: BASOPHILS # (AUTO) 0.1 /CMM (0.0-0.2); BASOPHILS % (AUTO) 0.5 % (0.0-2.0); HEMATOCRIT 26 % (39-51); HEMOGLOBIN 8.9 g/dL (13.5-17.5); LYMPHOCYTES # (AUTO) 2.8 /CMM (0.8-4.8); LYMPHOCYTES % (AUTO) 24.4 % (20.0-44.0); MEAN CORPUSCULAR HGB CONC 34 g/dl (31.0-36.0); MEAN CORPUSCULAR VOLUME 89 fL (80-96); MONOCYTES # (AUTO) 0.7 /CMM (0.1-1.30); MONOCYTES % (AUTO) 6.1 % (2.0-12.0); NEUTROPHILS # (AUTO) 7.4 /CMM (1.8-8.9); PLATELET COUNT (AUTO) 187 /CMM (150-450); RED BLOOD CELL COUNT(AUTO) 2.97 MIL/uL (4.5-6.0); WHITE BLOOD COUNT (AUTO) 11.3 K/uL (4.3-11.0)
[2018-10-21 07:31] LABS: CALCIUM, SERUM 7.3 mg/dL (8.5-10.1); CREATININE 0.6 mg/dL (0.6-1.3); MAGNESIUM 1.4 mg/dL (1.8-2.4); PHOSPHORUS 3.4 mg/dL (2.5-4.9); POTASSIUM 3.2 mmol/L (3.5-5.1)
[2018-10-21 08:00] VITALS: BP 104/65
--- NOTE | 2018-10-21 08:00 | NUR ---
MS1/RN AM SHIFT INITIAL NOTES RECEIVED PT AWAKE IN BED, PT A/O X 4, NO ACUTE BLEEDING NOTED AT THIS TIME, COMPLAINT OF PAIN OF LEGS RATED 7.5/10. ON ROOM AIR, LUNG SOUNDS CLEAR, RESPIRATIONS EVEN AND UNLABORED. WITH ON GOING IV INFUSION OF NS @ 80CC/HR, IV SITE PATENT WITH NO S/S OF INFECTION. SCHEDULED AM MEDS TO BE GIVEN, CL WITHIN REACHED AND SAFETY MAINTAINED. ON GOING MONITORING.
[2018-10-21] MEDS: NICOTINE PATCH (21MG) 21 MG PATCH.TD24 TD SCH (08:46)
[2018-10-21] MEDS: SUCRALFATE 1 G TABLET PO SCH ×3 (08:46→16:07)
[2018-10-21] MEDS: NEXIUM 40 MG VIAL IV SCH (08:46)
[2018-10-21] MEDS: SPIRONOLACTONE 25 MG TABLET PO SCH (08:46)
[2018-10-21] MEDS: FUROSEMIDE 40 MG TABLET PO SCH (08:46)
[2018-10-21] MEDS: LEVETIRACETAM SOL (5 ML) 100 MG/ML UDC PO SCH (08:46)
[2018-10-21] MEDS: CEFTRIAXONE 1 G in IV D5W 50 ML IV SCH (09:01)
[2018-10-21] MEDS: POTASSIUM CHLORIDE 20 MEQ TAB.PRT.SR PO SCH ×2 (10:56→12:42)
[2018-10-21] MEDS: Magnesium 1GM/D5W 100ML PREMIX 100 ML IV SCH ×4 (10:56→16:07)
[2018-10-21 16:00] VITALS: BP 101/71
--- NOTE | 2018-10-21 17:25 | NUR ---
MS1/CRIMINAL INVESTIGATOR CUSTOMS - HOME NO ACUTE CHANGE OF CONDITION NOTED. DISCHARGE INSTRUCTIONS GIVEN TO PATIENT AND HIS BROTHER. DISCHARGE DOCUMENTS AND PRESCRIPTION GIVEN TO PT'S BROTHER. ID BAND REMOVED, IV SITES REMOVED, PRESSURE DRESSING APPLIED, NO S/S OF INFECTION. PERSONAL BELONGINGS RETURNED, INVENTORY SIGNED OFF. PT LEFT MS UNIT IN STABLE CONDITION VIA WHEELCHAIR ACCOMPANIED BY CANNONEER TO AN AWAITING PRIVATE CAR.
== END 2018-10-21 17:25 | disposition home health service (06) | DRG 241 ==
LOC: ER 08:58 → TELE1 11:43 → TELE-TD 19:01 → MEDSG1 10-18 09:51
PROVIDERS: ADMIT Nurse Practitioner Acute Care; ATTEND Nurse Practitioner Acute Care
PROC: 30233N1 Transfusion of Nonautologous Red Blood Cells into Peripheral Vein, Percutaneous Approach (ICD-10-PCS; principal; 2018-10-17)
DX: K29.21 Alcoholic gastritis with bleeding (principal); E43 Unspecified severe protein-calorie malnutrition; E87.2 Acidosis; I95.9 Hypotension, unspecified; E87.5 Hyperkalemia; E83.42 Hypomagnesemia; I85.01 Esophageal varices with bleeding; F17.210 Nicotine dependence, cigarettes, uncomplicated; D50.0 Iron deficiency anemia secondary to blood loss (chronic); D72.829 Elevated white blood cell count, unspecified; G40.909 Epilepsy, unspecified, not intractable, without status epilepticus; K44.9 Diaphragmatic hernia without obstruction or gangrene; Z91.14 Patient's other noncompliance with medication regimen; K64.8 Other hemorrhoids; N39.0 Urinary tract infection, site not specified; B96.89 Other specified bacterial agents as the cause of diseases classified elsewhere; R79.89 Other specified abnormal findings of blood chemistry; Z68.1 Body mass index [BMI] 19.9 or less, adult; R74.0 Nonspecific elevation of levels of transaminase and lactic acid dehydrogenase [LDH]; E80.6 Other disorders of bilirubin metabolism; G89.29 Other chronic pain; M54.9 Dorsalgia, unspecified; F10.20 Alcohol dependence, uncomplicated
CPT/HCPCS: 36415; 71045-TC; 80048-TC; 80053-TC; 80061-TC; 80076-TC; 81000-TC; 82140-TC; 82247-TC; 82248-TC; 82272-TC; 83540-TC; 83605-TC; 83735-TC; 83880; 84100-TC; 84484-TC; 85025-TC; 85730-TC; 86850-TC; 86921-TC; 87040-TC; 87081-TC; 87086-TC; G0378; J0696; J1953; J2354; J2405; J3475; J7030; J7050; J7060; P9016-BL

== ENCOUNTER 2018-10-24 19:05 | Inpatient (IN) | payer OTHER ==
[~2018-10-24] VITALS: Ht 160 cm; Wt 59.4 kg
[~2018-10-24 19:05] MED LIST changes: +CHOL20004 PO; -LEVE250T2 PO; +LEVE500T9 PO; +METH-406 PO; +PARO10TA86 PO; -PHEN100C4 PO; -SUCR1ORA PO
--- NOTE | 2018-10-24 19:50 | NUR ---
BIB FRIEND W/ C/O VOMITTING BLOOD, AND FALL. +DIARRHEA.
--- NOTE | 2018-10-24 20:09 | NUR ---
AT THE BED SIDE FOR ASSESSMENT
[2018-10-24] MEDS ORDERED: ONDANSETRON HCL/PF 4 MG/2 ML VIAL ONE (20:25)
[2018-10-24] MEDS ORDERED: MORPHINE SULFATE INJ 4 MG/ML DISP.SYRIN ONE (20:25)
[2018-10-24] MEDS ORDERED: PANTOPRAZOLE 40 MG VIAL ONE (20:25)
[2018-10-24] MEDS ORDERED: MORPHINE SULFATE INJ 10 MG/ML DISP.SYRIN IV ONE (20:30)
[2018-10-24] MEDS ORDERED: ONDANSETRON HCL/PF - ER 4 MG/2 ML VIAL IV ONE (20:30)
[2018-10-24] MEDS ORDERED: PANTOPRAZOLE 40 MG VIAL IV ONE (20:30)
[2018-10-24 20:40] LABS: BASOPHILS # (AUTO) 0.1 /CMM (0.0-0.2); BASOPHILS % (AUTO) 1.2 % (0.0-2.0); EOSINOPHILS % (AUTO) 4.6 % (0.0-6.0); HEMATOCRIT 26 % (39-51); HEMOGLOBIN 8.6 g/dL (13.5-17.5); LYMPHOCYTES # (AUTO) 3.2 /CMM (0.8-4.8); LYMPHOCYTES % (AUTO) 27.6 % (20.0-44.0); MEAN CORPUSCULAR HGB CONC 33 g/dl (31.0-36.0); MEAN CORPUSCULAR VOLUME 89 fL (80-96); MONOCYTES # (AUTO) 1.1 /CMM (0.1-1.30); MONOCYTES % (AUTO) 9.1 % (2.0-12.0); NEUTROPHILS # (AUTO) 6.7 /CMM (1.8-8.9); NEUTROPHILS % (AUTO) 57.5 % (43.0-81.0); PLATELET COUNT (AUTO) 268 /CMM (150-450); WHITE BLOOD COUNT (AUTO) 11.6 K/uL (4.3-11.0)
[2018-10-24] MEDS ORDERED: CT SWABBABLE VALVE TRANS SET 1 EA INFUS.SET MC ONE (20:43)
[2018-10-24] MEDS ORDERED: IOHEXOL-300 100 ML VIAL IV ONE (20:43)
[2018-10-24] MEDS ORDERED: IV NS 0.9% 250 ML IV ONE (20:43)
--- NOTE | 2018-10-24 21:00 | NUR ---
RECEIVED A CALLL FROM LAB REPORTING LACTIC ACID :2.6. MADE AWARE
[2018-10-24 21:04] LABS: CALCIUM, SERUM 8.5 mg/dL (8.5-10.1); CARBON DIOXIDE 26 mmol/L (21-32); CHLORIDE 96 mmol/L (98-107); GLUCOSE 98 mg/dL (74-106); POTASSIUM 3.8 mmol/L (3.5-5.1); SODIUM SERUM 129 mmol/L (136-145); UREA NITROGEN, BLOOD 9 mg/dL (7-18)
[2018-10-24 21:05] LABS: CREATININE 0.7 mg/dL (0.6-1.3)
[2018-10-24 21:11] LABS: ALANINE AMINOTRANSFERASE 51 U/L (12-78); ALBUMIN 2.5 g/dL (3.4-5.0); ALKALINE PHOSPHATASE 128 U/L (46-116); ASPARTATE AMINOTRANSFERASE 79 U/L (15-37); BILIRUBIN,DIRECT 0.5 mg/dL (0.0-0.2); BILIRUBIN,TOTAL 0.9 mg/dL (0.2-1.0)
[2018-10-24 21:12] LABS: TOTAL PROTEIN, SERUM 7.9 g/dL (6.4-8.2)
[2018-10-24 21:13] LABS: LIPASE 112 U/L (73-393)
--- NOTE | 2018-10-24 21:14 | NUR ---
CAMMY, BROTHER- IN LAW
[2018-10-24] MEDS ORDERED: IV NS 0.9% 1,000 ML BAG IV ONE (21:30)
[2018-10-24 21:45] LABS: APPEARANCE,URINE CLEAR (CLEAR); BILIRUBIN,URINE NEGATIVE (NEGATIVE); BLOOD, URINE NEGATIVE Ery/uL (NEGATIVE); COLOR,URINE YELLOW (YELLOW); KETONES,URINE NEGATIVE (NEGATIVE); LEUKOCYTE ESTERASE ,URINE NEGATIVE (NEGATIVE); NITRITE, URINE NEGATIVE (NEGATIVE); PH,URINE 6.5 (5.0-8.0); PROTEIN,URINE NEGATIVE (NEGATIVE); UGLUCOSE NEGATIVE (NEGATIVE); UROBILINOGEN,URINE >=8.0 EU/dL (0.2)
[2018-10-24 21:55] LABS: BACTERIA,URINE Rare /HPF (None Seen); RBC,URINE NONE SEEN /HPF (0-2); SQUAMOUS EPITHELIAL CELL,UR Rare /HPF (None Seen); WBC,URINE 0-2 /HPF (0-3)
--- NOTE | 2018-10-24 22:24 | NUR ---
CALLED FOR TELE BED, TURNED IN MOVE SHEET
--- NOTE | 2018-10-24 22:24 | NUR ---
PAGED AVTAR KUNZ
[2018-10-24] MEDS ORDERED: CEFTRIAXONE 1GM BAG (ER ONLY) 1 GM/50 ML PIGGYBACK IV ONE (22:30)
[2018-10-24] MEDS ORDERED: ONDANSETRON HCL/PF 4 MG/2 ML VIAL IVP PRN (23:00)
[2018-10-24] MEDS ORDERED: Thiamine 100 MG in IV D5W 50 ML IV SCH (23:00)
[2018-10-24] MEDS ORDERED: ACETAMINOPHEN 650 MG/SUPP.RECT RC PRN (23:00)
[2018-10-24] MEDS ORDERED: Folic acid 1 MG in IV D5W 50 ML IV SCH (23:00)
[2018-10-24] MEDS ORDERED: Z GUARD REMEDY 2 OZ OINT TP PRN (23:00)
[2018-10-24] MEDS ORDERED: OCTREOTIDE 50 MCG in IV NS 0.9% 50 ML IV ONE (23:00)
[2018-10-24 23:37] LABS: PHOSPHORUS 4.3 mg/dL (2.5-4.9)
[2018-10-25] VITALS (10 sets, daily range): BP systolic 88–104; BP diastolic 49–77
[2018-10-25 00:02] LABS: MAGNESIUM 1.4 mg/dL (1.8-2.4)
--- NOTE | 2018-10-25 00:22 | NUR ---
report given to Rasheeda monroe
--- NOTE | 2018-10-25 01:05 | NUR ---
MS/RN RECEIVE PATIENT FROM E.. [facility]. PATIENT WAS AWAKE, ALERT, ORIENTED, COMFORTABLE, NO C/O PAIN, NO DISTRESS NOTED, ADMISSION DONE PER PROTOCOL, PLAN OF CARE DISCUSSED, VERBALIZED UNDERSTANDING AND AGREEMENT, NPO STATUS, FALL PRECAUTION PER PROTOCOL, TAUGHT THE USE OF CALL LIGHT AND PLACED AT BEDSIDE WITHIN REACH. WILL MONITOR.
[2018-10-25] MEDS: IV NS 0.9% 1,000 ML IV PRN (01:18)
--- NOTE | 2018-10-25 01:22 | NUR ---
pt was transferred to 309 under acls in stable condition
[2018-10-25] MEDS ORDERED: OCTREOTIDE 100 MCG/ML VIAL ONE (02:34)
[2018-10-25] MEDS ORDERED: LEVETIRACETAM (500MG) 500 MG/5 ML VIAL IV ONE (02:34)
--- NOTE | 2018-10-25 02:36 | NUR ---
MS/RN SPOKE TO DR. NOVA RE: THIAMIN IV AND FOLIC ACID IV, PER DR. NOVA IT IS OK TO GIVE IT IN THE MORNING WHEN THE PHARMACY OPENS. RECEIVED ALSO ORDER FOR 3 GMS. MAGNESIUM FOR MAGNESIUM LEVEL OF 1.4 IN E.R. ORDERS CARRIED OUT.
[2018-10-25] MEDS: LEVETIRACETAM (500MG) 500 MG in IV NS 0.9% 100 ML IV SCH ×3 (02:44→22:20)
--- NOTE | 2018-10-25 03:12 | NUR ---
MS/RN PATIENT IS SLEEPING AT THIS TIME, APPEAR COMFORTABLE, BREATHING EVEN AND UNLABORED, CALL LIGHT IN REACH. WILL CONTINUE TO MONITOR.
[2018-10-25] MEDS: Magnesium 1GM/D5W 100ML PREMIX 100 ML IV SCH ×2 (04:01→04:59)
--- NOTE | 2018-10-25 06:21 | NUR ---
MS/RN PATIENT IS STILL SLEEPING AT THIS TIME, EASILY AROUSABLE, APPEAR COMFORTABLE, NO DISTRESS NOTED, CALL LIGHT IN REACH. WILL CONTINUE TO MONITOR.
--- NOTE | 2018-10-25 07:17 | NUR ---
RN OPENING NOTE PT WAS RECEIVED IN BED AT LOWEST AND LOCKED POSITION WITH SIDE RAILS UP X2, A/OX4 BREATHING EVEN AND UNLABORED ON RA, NO S/S OF ANY DISTRESS OR PAIN AT THIS TIME, IV IS PATENT AND INTACT WITH IVF RUNNING, PT IS CURRENTLY NPO DUE TO DIAGNOSIS OF GI BLEED, ON BEDREST, SAFETY PRECAUTIONS IN PLACE, CALL LIGHT WITHIN REACH, WILL MONITOR PT ACCORDINGLY.
--- NOTE | 2018-10-25 07:45 | NUR ---
RN NOTE PHARMACY CALLED REGARDING IV FOLIC ACID AND THIAMINE, WILL ADMIN ONCE MEDS IS BROUGHT UP TO THE FLOOR
[2018-10-25] MEDS: Folic acid 1 MG in IV D5W 50 ML IV SCH (08:13)
[2018-10-25] MEDS: NEXIUM 40 MG VIAL IV SCH ×2 (08:59→21:00)
[2018-10-25] MEDS ORDERED: PROPRANOLOL HCL 1 MG/ML AMPUL IV SCH ×2 (09:00)
[2018-10-25] MEDS ORDERED: PANTOPRAZOLE 40 MG VIAL IV SCH (09:00)
[2018-10-25] MEDS: Thiamine 100 MG in IV D5W 50 ML IV SCH (09:00)
[2018-10-25] MEDS: OCTREOTIDE 1,250 MCG in IV NS 0.9% 247.5 ML IV PRN (10:07)
[2018-10-25 12:10] LABS: BASOPHILS # (AUTO) 0.1 /CMM (0.0-0.2); BASOPHILS % (AUTO) 0.9 % (0.0-2.0); EOSINOPHILS % (AUTO) 8.2 % (0.0-6.0); HEMATOCRIT 22 % (39-51); HEMOGLOBIN 7.2 g/dL (13.5-17.5); LYMPHOCYTES # (AUTO) 2.2 /CMM (0.8-4.8); LYMPHOCYTES % (AUTO) 31.4 % (20.0-44.0); MEAN CORPUSCULAR HGB CONC 33 g/dl (31.0-36.0); MEAN CORPUSCULAR VOLUME 90 fL (80-96); MONOCYTES # (AUTO) 0.6 /CMM (0.1-1.30); MONOCYTES % (AUTO) 8.9 % (2.0-12.0); NEUTROPHILS # (AUTO) 3.6 /CMM (1.8-8.9); NEUTROPHILS % (AUTO) 50.6 % (43.0-81.0); PLATELET COUNT (AUTO) 210 /CMM (150-450); WHITE BLOOD COUNT (AUTO) 7.1 K/uL (4.3-11.0)
[2018-10-25 12:31] LABS: ALBUMIN 2.1 g/dL (3.4-5.0); BILIRUBIN,TOTAL 0.8 mg/dL (0.2-1.0); CALCIUM, SERUM 7.7 mg/dL (8.5-10.1); CREATININE 0.7 mg/dL (0.6-1.3); PHOSPHORUS 4.2 mg/dL (2.5-4.9); TOTAL PROTEIN, SERUM 6.6 g/dL (6.4-8.2)
--- NOTE | 2018-10-25 16:15 | NUR ---
RN NOTE BLOOD TRANSFUSION STARTED AT THIS TIME
--- NOTE | 2018-10-25 17:00 | NUR ---
RN NOTE PER DR. CASTRO PLAN FOR EGD SUNDAY
--- NOTE | 2018-10-25 18:41 | NUR ---
RN CLOSING NOTE PT IN BED WITH SIDE RAILS UP X2, A/OX4 BREATHING EVEN AND UNLABORED ON RA, NO S/S OF ANY DISTRESS OR PAIN AT THIS TIME, IV IS PATENT AND INTACT WITH BLOOD TRANSFUSING, PT IS CURRENTLY NPO, SAFETY PRECAUTIONS IN PLACE, CALL LIGHT WITHIN REACH, ALL NEEDS ATTENDED TO, WILL ENDORSE TO NIGHT RN FOR AISSATOU.
--- NOTE | 2018-10-25 18:54 | NUR ---
Patient is readmitted in less than 72hours with GIB. He lives at home with his sister. He is ambulatory and independent with adl's. His pcp is Dr.Alicia Taylor in [facility]. Addendum: 10/25/18 at 1854 by MAUREEN RIVERA RN Amended: Links added.
--- NOTE | 2018-10-25 19:00 | NUR ---
MS RN OPENING NOTES Received patient A/Ox4, awake on semi-Yang's position on bed. S/P 1unit PRBC BT, afebrile at this time, no complaints of discomfort made. With patent peripheral IV line LFA G#20 with LR infusing well @ 100ml/hr as ordered; with RAC G#18 with Sandostatin 50mcg/hr as ordered. On NPO. Patient on RA, no SOB/respiratory distress noted at this time. Patient denies any discomfort at this time. On fall precautions, call light within easy reach. Will continue to monitor accordingly.
[2018-10-25 20:53] LABS: HEMOGLOBIN 8.3 g/dL (13.5-17.5)
[2018-10-25] MEDS: CEFTRIAXONE 1 G in IV D5W 50 ML IV SCH (21:00)
[2018-10-26] MEDS: IV NS 0.9% 1,000 ML IV PRN ×2 (05:11→15:49)
--- NOTE | 2018-10-26 06:40 | NUR ---
MS RN CLOSING NOTES Patient asleep, easily awaken. All nursing needs attended, no new complaints made. All due meds given as ordered, no ASE noted. Kept on bed clean, dry and comfortable. On fall precautions, call light within easy reach. Endorsed to the next shift.
[2018-10-26 07:35] LABS: BASOPHILS # (AUTO) 0.1 /CMM (0.0-0.2); BASOPHILS % (AUTO) 1.3 % (0.0-2.0); EOSINOPHILS % (AUTO) 7.3 % (0.0-6.0); HEMATOCRIT 24 % (39-51); LYMPHOCYTES # (AUTO) 2.3 /CMM (0.8-4.8); LYMPHOCYTES % (AUTO) 32.5 % (20.0-44.0); MEAN CORPUSCULAR HGB CONC 34 g/dl (31.0-36.0); MEAN CORPUSCULAR VOLUME 90 fL (80-96); MONOCYTES # (AUTO) 0.5 /CMM (0.1-1.30); MONOCYTES % (AUTO) 7.2 % (2.0-12.0); NEUTROPHILS # (AUTO) 3.7 /CMM (1.8-8.9); NEUTROPHILS % (AUTO) 51.7 % (43.0-81.0); PLATELET COUNT (AUTO) 203 /CMM (150-450); RED BLOOD CELL COUNT(AUTO) 2.66 MIL/uL (4.5-6.0); WHITE BLOOD COUNT (AUTO) 7.1 K/uL (4.3-11.0)
[2018-10-26 07:49] LABS: CALCIUM, SERUM 7.5 mg/dL (8.5-10.1); CREATININE 0.7 mg/dL (0.6-1.3); POTASSIUM 3.8 mmol/L (3.5-5.1)
[2018-10-26 08:00] VITALS: BP 98/65
[2018-10-26] MEDS: NEXIUM 40 MG VIAL IV SCH ×2 (08:01→21:36)
[2018-10-26] MEDS: Folic acid 1 MG in IV D5W 50 ML IV SCH (08:52)
[2018-10-26] MEDS: Thiamine 100 MG in IV D5W 50 ML IV SCH (09:19)
[2018-10-26] MEDS: LEVETIRACETAM (500MG) 500 MG in IV NS 0.9% 100 ML IV SCH ×2 (10:41→23:11)
[2018-10-26] MEDS: OCTREOTIDE 1,250 MCG in IV NS 0.9% 247.5 ML IV PRN (13:05)
[2018-10-26 16:00] VITALS: BP 120/84
--- NOTE | 2018-10-26 18:21 | NUR ---
RN CLOSING NOTE PT IN BED IN LOWEST AND LOCKED POSITION WITH SIDE RAILS UP X2, A/OX4 BREATHING EVEN AND UNLABORED ON RA WITH NO COMPLAINTS OF ANY PAIN AT THIS TIME, IV IS PATENT AND INTACT WIT IVF RUNNIG, SAFETY PRECAUTIONS IN PLACE, CALL LIGHT WITHIN REACH, ALL NEEDS ATTENDED TO, WILL ENDORSE TO NIGHT RN FOR AISSATOU.
--- NOTE | 2018-10-26 19:35 | NUR ---
MS RN NOTES RECEIVED LAYING COMFORTABLY ON BED,A/O X4,WATCHING TV PROGRAM,ABLE TO VERBALIZED NEEDS.NS AT 100ML/HR RATE IN PROGRESS ON RIGHT AC#18,SITE PATENT.SANDOSTATIN DRIP IN PROGRESS.ABLE TO ANBULATE TO TJE TOILET WITH ASSIST.CALL LIGHT IN REACG,NEEDS ANTICIPATED.
[2018-10-26 19:42] LABS: HEMOGLOBIN 8.4 g/dL (13.5-17.5)
[2018-10-26 20:00] VITALS: BP 112/83
[2018-10-26] MEDS: CEFTRIAXONE 1 G in IV D5W 50 ML IV SCH (21:49)
[2018-10-27] VITALS (13 sets, daily range): BP systolic 107–131; BP diastolic 47–73
--- NOTE | 2018-10-27 | NUR ---
MS RN NOTES NOTED PATIENT HAVING BLOODY STOOL WITH BLOOD CLOTS,CHARGE NURSE MADE AWARE.STAT HEMOGLOBIN/HEMATOCRIT WAS ORDERED.
--- NOTE | 2018-10-27 00:40 | NUR ---
MS RN NOTES SPOKE TO HOSPITALIST,MADE AWARE OF THE H/H RESULTS WHICH WAS 6.4/,WITH ORDER TO TRANSFUSE ANOTHER TWO UNITS OF PRBC,NOTED AND CARRIED OUT.
[2018-10-27 01:09] LABS: HEMOGLOBIN 6.4 g/dL (13.5-17.5)
--- NOTE | 2018-10-27 02:33 | NUR ---
MS RN NOTES BLOOD PRESSURE OF 78/54,PULSE-85 ON LEFT ARM,RE CHECK ON LEFT LOWER LEG AND IT WAS 107/47,PULSE-89.CHARGE NURSE MADE AWARE.
--- NOTE | 2018-10-27 02:33 | NUR ---
MS RN NOTES WITH ANOTHER EPISODE OF BLOODY STOOL,WITH BLOOD CLOTS.PATIENT DENIES DIZZINESS.REMAINS ALERT,ORIENTED X4.
--- NOTE | 2018-10-27 02:40 | NUR ---
MS RN NOTES HOSPITALIST SUPERINTENDENT WAS PAGE,AWAITING TO CALL BACK.
--- NOTE | 2018-10-27 03:20 | NUR ---
MS RN NOTES SPOKE TO AVTAR RAMÍREZ [facility] HOSPITALIST,MADE AWARE OF PATIENT HAVING ACTIVE BLOOD STOOL,WILL SEE PATIENT IN A BIT.
--- NOTE | 2018-10-27 04:30 | NUR ---
MS RN NOTES RECEIVED CALL FROM AVTAR CARLOS,WITH ORDER TO GIVE FFP 1 UNIT POST TRANSFUSION OF 2 UNITS PRBC.
--- NOTE | 2018-10-27 05:31 | NUR ---
LICENSED NURSE PRACTITIONER NOTES FIRST UNIT OF PRBC COMPLETED,NO ADVERSE REACTION NOTED,NS FLUSHING IN PROGRESS.WILL CONTINUE TO MONITOR STATUS.
--- NOTE | 2018-10-27 05:53 | NUR ---
ENERGY ADVISOR NOTES SECOND UNIT OF PRBC 350 ML STARTED.VITAL SIGNS WITH IN NORMAL LIMITS
--- NOTE | 2018-10-27 06:19 | NUR ---
TANK SHOP SUPERVISOR NOTES SECOND UNIT PRBC IN PROGRESS,VITAL SIGNS WITH IN NORMAL LIMITS.ON CLEAR LIQUID,FOR EGD SUNDAY MORNING.CONTINUE TO MONITOR FOR BLOODY STOOL.IN NO ACUTE DISTRESS.WILL ENDORSE TO DAY NURSE FOR AISSATOU.
--- NOTE | 2018-10-27 07:11 | NUR ---
RN OPENING NOTE PT WAS RECEIVED IN BED AT LOWEST AND LOCKED POSITION WITH SIDE RAILS UP X2, A/OX4 BREATHING EVEN AND UNLABORED ON RA, NO S/S OF ANY DISTRESS OR PAIN AT THIS TIME, IV IS PATENT AND INTACT WITH BLOOD CURRENTLY TRANSFUSING, PLAN FOR PT TO GET FFP AFTER SECOND DOSE OF PRBC, SAFETY PRECAUTIONS IN PLACE, CALL LIGHT WITHIN REACH, WILL MONITOR PT ACCORDINGLY.
--- NOTE | 2018-10-27 08:50 | NUR ---
RN NOTE BLOOD BANK CALLED REGARDING FFP, INFORMED THAT IT IS NOT AVAILABLE YET, WILL AWAIT FOR CALL BACK ONCE AVAILABLE
[2018-10-27] MEDS: NEXIUM 40 MG VIAL IV SCH ×2 (08:58→21:14)
[2018-10-27] MEDS: Thiamine 100 MG in IV D5W 50 ML IV SCH (09:29)
[2018-10-27] MEDS: Folic acid 1 MG in IV D5W 50 ML IV SCH (09:29)
--- NOTE | 2018-10-27 10:29 | NUR ---
RN NOTE FFP STARTED AT THIS TIME, VS WNL, WILL MONITOR ACCORDINGLY
[2018-10-27] MEDS: LEVETIRACETAM (500MG) 500 MG in IV NS 0.9% 100 ML IV SCH ×2 (11:23→23:37)
[2018-10-27 12:47] LABS: BASOPHILS # (AUTO) 0.1 /CMM (0.0-0.2); BASOPHILS % (AUTO) 0.7 % (0.0-2.0); EOSINOPHILS % (AUTO) 4.8 % (0.0-6.0); HEMATOCRIT 25 % (39-51); HEMOGLOBIN 8.5 g/dL (13.5-17.5); LYMPHOCYTES # (AUTO) 2.2 /CMM (0.8-4.8); LYMPHOCYTES % (AUTO) 24.7 % (20.0-44.0); MEAN CORPUSCULAR HGB CONC 34 g/dl (31.0-36.0); MEAN CORPUSCULAR VOLUME 91 fL (80-96); MONOCYTES # (AUTO) 0.7 /CMM (0.1-1.30); MONOCYTES % (AUTO) 7.9 % (2.0-12.0); NEUTROPHILS # (AUTO) 5.5 /CMM (1.8-8.9); NEUTROPHILS % (AUTO) 61.9 % (43.0-81.0); PLATELET COUNT (AUTO) 173 /CMM (150-450); RED BLOOD CELL COUNT(AUTO) 2.77 MIL/uL (4.5-6.0); WHITE BLOOD COUNT (AUTO) 8.9 K/uL (4.3-11.0)
[2018-10-27 12:59] LABS: CALCIUM, SERUM 7.5 mg/dL (8.5-10.1); CREATININE 0.6 mg/dL (0.6-1.3); POTASSIUM 3.4 mmol/L (3.5-5.1)
--- NOTE | 2018-10-27 14:26 | NUR ---
RN NOTE HOSPITALIST CHELITA SAAVEDRA MADE AWARE OF H/H LEVEL AT THIS TIME, NO NEW ORDERS GIVEN. INFORMED THAT PT MAY HAVE EGD DONE LATER TODAY
[2018-10-27] MEDS: IV NS 0.9% 1,000 ML IV PRN (14:58)
[2018-10-27 18:25] LABS: HEMOGLOBIN 8.4 g/dL (13.5-17.5)
--- NOTE | 2018-10-27 18:42 | NUR ---
RN CLOSING NOTE PT IN BED WITH SIDE RAILS UP X2, A/OX4 BREATHING EVEN AND UNLABORED ON RA, NO S/S OF ANY DISTRESS OR PAIN AT THIS TIME, IV IS PATENT AND INTACT WITH IVF RUNNING, PT IS CURRENTLY NPO, H/H CAMEBACK SHOWING 8.06/27 RESPECTIVELY, SAFETY PRECAUTIONS IN PLACE, CALL LIGHT WITHIN REACH, ALL NEEDS ATTENDED TO, WILL ENDORSE TO NIGHT RN FOR AISSATOU.
--- NOTE | 2018-10-27 19:30 | NUR ---
RN MS OPENING NOTES RECEIVED PATIENT IN BED AWAKE, ALERT AND ORIENTED X4, VERBALLY RESPONSIVE, ABLE TO MAKE NEEDS KNOWN. BREATHING EVEN AND UNLABORED, NO SOB NOTED. TOLERATING ROOM AIR. CURRENTLY WITH NO COMPLAINTS OF PAIN OR DISCOMFORT. NO FACIAL GRIMACING. IV ON RIGHT AC AND LEFT FOREARM INTACT AND PATENT WITH IVF INFUSING. SKIN DRY AND WARM TO TOUCH, AFEBRILE. NO SIGNS ON ACTIVE BLEEDING AT THE MOMENT. PATIENT IS S/P BLOOD TRANSFUSION DURING DAY SHIFT. NO ADVERSE EFFECTS NOTED. ALL OTHER NEEDS ATTENDED TO. SAFETY MEASURES IN PLACE. CALL LIGHT WITHIN REACH. WILL CONTINUE TO MONITOR.
--- NOTE | 2018-10-27 20:00 | NUR ---
RN MS NOTES PATIENT REQUESTING TO EAT SOMETHING BUT REMINDED THAT HE HAS TO BE NPO DUE TO GI BLEED. PATIENT REQUESTED FOR AT LEAST ICE. INFORMED PATIENT THAT I WILL HAVE TO ASK HIS DOCTOR IF OK. BLANCA SANON HERE IN UNIT. INFORMED OF PATIENT'S REQUEST. PER BLANCA SANON, OK TO HAVE ICE CHIPS, BUT MUST BE NPO AT MIDNIGHT.
[2018-10-27] MEDS: CEFTRIAXONE 1 G in IV D5W 50 ML IV SCH (21:20)
[2018-10-27] MEDS: OCTREOTIDE 1,250 MCG in IV NS 0.9% 247.5 ML IV PRN (23:18)
[2018-10-28] MEDS: IV NS 0.9% 1,000 ML IV PRN ×2 (03:33→17:31)
--- NOTE | 2018-10-28 05:51 | NUR ---
RN MS NOTES ALL CONSENTS SIGNED BY PATIENT FOR EGD PROCEDURE TODAY. PLACED IN CHART.
[2018-10-28 06:47] LABS: BASOPHILS # (AUTO) 0.1 /CMM (0.0-0.2); BASOPHILS % (AUTO) 1.2 % (0.0-2.0); EOSINOPHILS % (AUTO) 6.3 % (0.0-6.0); HEMATOCRIT 23 % (39-51); HEMOGLOBIN 8.1 g/dL (13.5-17.5); LYMPHOCYTES # (AUTO) 2.4 /CMM (0.8-4.8); LYMPHOCYTES % (AUTO) 33.9 % (20.0-44.0); MEAN CORPUSCULAR HGB CONC 35 g/dl (31.0-36.0); MEAN CORPUSCULAR VOLUME 90 fL (80-96); MONOCYTES # (AUTO) 0.6 /CMM (0.1-1.30); MONOCYTES % (AUTO) 8.3 % (2.0-12.0); NEUTROPHILS # (AUTO) 3.6 /CMM (1.8-8.9); NEUTROPHILS % (AUTO) 50.3 % (43.0-81.0); PLATELET COUNT (AUTO) 165 /CMM (150-450); RED BLOOD CELL COUNT(AUTO) 2.58 MIL/uL (4.5-6.0); WHITE BLOOD COUNT (AUTO) 7.2 K/uL (4.3-11.0)
--- NOTE | 2018-10-28 06:53 | NUR ---
RN MS CLOSING NOTES PATIENT RESTING IN BED. NO ACUTE CHANGES THROUGHOUT SHIFT. BREATHING EVEN AND UNLABORED, NO SOB NOTED. TOLERATING ROOM AIR. NO COMPLAINTS OF PAIN OR DISCOMFORT. IV ON RIGHT AC AND LEFT FOREARM INTACT AND PATENT WITH IVF INFUSING. NO SIGNS ON ACTIVE BLEEDING THROUGHOUT NIGHT. NO BM. ALL OTHER NEEDS ATTENDED TO. SAFETY MEASURES IN PLACE. CALL LIGHT WITHIN REACH. WILL ENDORSE TO ONCOMING NURSE FOR AISSATOU.
[2018-10-28 07:10] LABS: CALCIUM, SERUM 7.2 mg/dL (8.5-10.1); CREATININE 0.7 mg/dL (0.6-1.3); POTASSIUM 3.3 mmol/L (3.5-5.1)
--- NOTE | 2018-10-28 07:45 | NUR ---
MS RN OPENING NOTES RECEIVED PATIENT IN BED AWAKE, ALERT AND ORIENTED X4, ON RA, BREATHING EVEN AND UNLABORED, NO SOB NOTED. IV ON RIGHT AC AND LEFT FOREARM INTACT AND PATENT WITH IVF INFUSING. NO SIGNS OF ACTIVE BLEEDING AT THE MOMENT. SAFETY MEASURES IN PLACE, BED IN LOW LOCKED POSITION WITH SIDE RAILS UP X 2. CALL LIGHT WITHIN REACH. WILL CONTINUE TO MONITOR.
[2018-10-28 08:00] VITALS: BP 112/79
--- NOTE | 2018-10-28 09:10 | NUR ---
MS RN NOTES PATIENT LEFT UNIT FOR EGD. PATIENT IS IN STABLE CONDITION.
[2018-10-28] MEDS ORDERED: MIDAZOLAM HCL 2 MG/2ML VIAL ONE (09:36)
--- NOTE | 2018-10-28 10:20 | NUR ---
MS RN NOTES PATIENT CAME BACK FROM EGD. PATIENT IS IN STABLE CONDITION. WILL CONTINUE TO MONITOR.
[2018-10-28] MEDS: POTASSIUM CL. PREMIX PERIPHER. 50 ML IV SCH ×2 (10:51→12:40)
[2018-10-28] MEDS: Folic acid 1 MG in IV D5W 50 ML IV SCH (11:17)
[2018-10-28] MEDS: NEXIUM 40 MG VIAL IV SCH ×2 (11:25→21:41)
[2018-10-28] MEDS: Thiamine 100 MG in IV D5W 50 ML IV SCH (11:58)
[2018-10-28] MEDS: LEVETIRACETAM (500MG) 500 MG in IV NS 0.9% 100 ML IV SCH (12:33)
[2018-10-28 16:00] VITALS: BP 118/78
[2018-10-28 18:55] LABS: HEMOGLOBIN 9.3 g/dL (13.5-17.5)
--- NOTE | 2018-10-28 18:56 | NUR ---
MS RN CLOSING NOTES PATIENT IN BED RESTING COMFORTABLY IN MODERATE HIGH BACK REST. A/O X4, ON RA, BREATHING EVEN AND UNLABORED, NO SOB NOTED. IV ON RIGHT AC #18, SL AND LEFT FOREARM #20 WITH NS @100ML/HR. PATENT AND INTACT. S/P EGD, NO SIGNS OF ACTIVE BLEEDING THROUGHOUT THE SHIFT. SAFETY MEASURES IN PLACE, BED IN LOW LOCKED POSITION WITH SIDE RAILS UP X 2. CALL LIGHT WITHIN REACH. WILL ENDORSED TO STUD MASTER/MISTRESS NURSE FOR AISSATOU.
--- NOTE | 2018-10-28 19:23 | NUR ---
RN MS OPENING NOTES RECEIVED PATIENT IN BED AWAKE, ALERT AND ORIENTED X4, VERBALLY RESPONSIVE, ABLE TO MAKE NEEDS KNOWN. BREATHING EVEN AND UNLABORED, NO SOB NOTED. TOLERATING ROOM AIR. CURRENTLY WITH NO COMPLAINTS OF PAIN OR DISCOMFORT. NO FACIAL GRIMACING. IV ON RIGHT AC AND LEFT FOREARM INTACT AND PATENT WITH IVF INFUSING. SKIN DRY AND WARM TO TOUCH, AFEBRILE. NO SIGNS ON ACTIVE BLEEDING AT THE MOMENT. PATIENT IS S/P EGD. NO COMPLAINTS ABOUT IT. ALL OTHER NEEDS ATTENDED TO. SAFETY MEASURES IN PLACE. CALL LIGHT WITHIN REACH. WILL CONTINUE TO MONITOR.
[2018-10-28 20:00] VITALS: BP_SYST 111; BP_SYST 121; BP_DIAS 67; BP_DIAS 90
[2018-10-28] MEDS: LEVETIRACETAM (250 MG) 250 MG TABLET PO SCH (21:41)
[2018-10-28] MEDS: SUCRALFATE 1 G/10 ML UDC GT SCH (21:41)
[2018-10-28] MEDS: CEFTRIAXONE 1 G in IV D5W 50 ML IV SCH (21:57)
[2018-10-29] MEDS: IV NS 0.9% 1,000 ML IV PRN ×2 (05:32→17:35)
[2018-10-29 06:40] LABS: BASOPHILS # (AUTO) 0.1 /CMM (0.0-0.2); BASOPHILS % (AUTO) 0.7 % (0.0-2.0); EOSINOPHILS % (AUTO) 5.6 % (0.0-6.0); HEMATOCRIT 25 % (39-51); HEMOGLOBIN 8.4 g/dL (13.5-17.5); LYMPHOCYTES # (AUTO) 2.1 /CMM (0.8-4.8); MEAN CORPUSCULAR HGB CONC 34 g/dl (31.0-36.0); MEAN CORPUSCULAR VOLUME 91 fL (80-96); MONOCYTES # (AUTO) 0.7 /CMM (0.1-1.30); MONOCYTES % (AUTO) 8.6 % (2.0-12.0); NEUTROPHILS # (AUTO) 4.8 /CMM (1.8-8.9); NEUTROPHILS % (AUTO) 59.1 % (43.0-81.0); PLATELET COUNT (AUTO) 203 /CMM (150-450); RED BLOOD CELL COUNT(AUTO) 2.72 MIL/uL (4.5-6.0); WHITE BLOOD COUNT (AUTO) 8.1 K/uL (4.3-11.0)
--- NOTE | 2018-10-29 07:01 | NUR ---
RN MS CLOSING NOTES PATIENT RESTING IN BED. NO ACUTE CHANGES THROUGHOUT SHIFT. BREATHING EVEN AND UNLABORED, NO SOB NOTED. TOLERATING ROOM AIR. NO COMPLAINTS OF PAIN OR DISCOMFORT. IV ON RIGHT AC AND LEFT FOREARM INTACT AND PATENT WITH IVF INFUSING. NO SIGNS ON ACTIVE BLEEDING THROUGHOUT NIGHT. ALL OTHER NEEDS ATTENDED TO. SAFETY MEASURES IN PLACE. CALL LIGHT WITHIN REACH. WILL ENDORSE TO ONCOMING NURSE FOR AISSATOU.
[2018-10-29 07:03] LABS: CALCIUM, SERUM 7.3 mg/dL (8.5-10.1); CREATININE 0.6 mg/dL (0.6-1.3); POTASSIUM 3.6 mmol/L (3.5-5.1)
--- NOTE | 2018-10-29 07:30 | NUR ---
RN MS NOTES PT IN BED, AWAKE, ALERT AND ORIENTED, NO COMPLAINT OF PAIN AT THIS TIME, RESPIRATIONS NORMAL, CALL LIGHT WITHIN REACH, IV FLUIDS INFUSING WELL, KEPT COMFORTABLE IN BED.
[2018-10-29 08:00] VITALS: BP 104/75
[2018-10-29] MEDS: SUCRALFATE 1 G/10 ML UDC GT SCH ×4 (08:32→21:54)
[2018-10-29] MEDS: NEXIUM 40 MG VIAL IV SCH ×2 (08:41→21:53)
[2018-10-29] MEDS: LEVETIRACETAM (250 MG) 250 MG TABLET PO SCH ×2 (08:41→21:54)
[2018-10-29] MEDS: THIAMINE HCL 100 MG TABLET PO SCH (08:41)
[2018-10-29] MEDS: FOLIC ACID 1 MG TABLET PO SCH (08:41)
--- NOTE | 2018-10-29 12:40 | NUR ---
RN MS NOTES PT IN BED, AWAKE, ALERT AND ORIENTED, EATING LUNCH, TOLERATING WELL, NO COMPLAINT AT THIS TIME, RESPIRATIONS NORMAL, CALL LIGHT WITHIN REACH, NEEDS ATTENDED.
[2018-10-29 16:00] VITALS: BP 98/70
[2018-10-29 18:00] VITALS: BP 98/70
--- NOTE | 2018-10-29 18:15 | NUR ---
RN MS NOTES PT IN BED, AWAKE, ALERT AND ORIENTED, EATING DINNER, TOLERATING WELL, DENIES PAIN, NOT IN DISTRESS, NO EPISODE OF BLEEDING NOTED, SEEN BY DR. QUINN TODAY, PLAN FOR DISCHARGE TOMORROW, PM MEDS GIVEN, ALL NEEDS ATTENDED.
--- NOTE | 2018-10-29 19:30 | NUR ---
RN OPEN NOTES RECEIVED PATIENT AWAKE LYING IN BED. A/OX3. NO SIGNS OF DISTRESS OR DISCOMFORT. BREATHING EVEN AND UNLABORED. IV ACCESS IN RAC AND LFA WITH NS INFUSING, PATENT AND INTACT, NO SIGNS OF REDNESS OR INFILTRATION. BED IN LOW LOCKED POSITION WITH SIDE RAILS X2. CALL LIGHT WITHIN REACH. WILL CONTINUE TO MONITOR.
[2018-10-29 20:00] VITALS: BP 114/57
[2018-10-29] MEDS: ACETAMINOPHEN 325 MG TABLET PO PRN (23:01)
[2018-10-30] VITALS (8 sets, daily range): BP systolic 88–109; BP diastolic 54–73
[2018-10-30] MEDS: IV NS 0.9% 1,000 ML IV PRN (07:25)
--- NOTE | 2018-10-30 07:30 | NUR ---
RN MS NOTES PT IN BED, AWAKE, ALERT AND ORIENTED, NO COMPLAINT AT THIS TIME, RESPIRATIONS NORMAL, IV FLUIDS INFUSING WELL, CALL LIGHT WITHIN REACH.
--- NOTE | 2018-10-30 07:34 | NUR ---
RN CLOSING NOTES PATIENT AWAKE LYING IN BED. A/OX3. NO SIGNS OF DISTRESS OR DISCOMFORT. BREATHING EVEN AND UNLABORED. IV ACCESS IN RAC AND LFA WITH NS INFUSING, PATENT AND INTACT, NO SIGNS OF REDNESS OR INFILTRATION. ALL NEEDS MET. NO SIGNIFICANT CHANGES THROUGH THE NIGHT. BED IN LOW LOCKED POSITION WITH SIDE RAILS X2. CALL LIGHT WITHIN REACH. WILL ENDORSE TO AM SHIFT FOR AISSATOU.
[2018-10-30] MEDS: THIAMINE HCL 100 MG TABLET PO SCH (08:19)
[2018-10-30] MEDS: LEVETIRACETAM (250 MG) 250 MG TABLET PO SCH ×2 (08:19→21:53)
[2018-10-30] MEDS: NEXIUM 40 MG VIAL IV SCH ×2 (08:19→21:53)
[2018-10-30] MEDS: SUCRALFATE 1 G/10 ML UDC GT SCH ×4 (08:19→21:53)
[2018-10-30] MEDS: FOLIC ACID 1 MG TABLET PO SCH (08:19)
[2018-10-30 11:27] LABS: BASOPHILS # (AUTO) 0.1 /CMM (0.0-0.2); BASOPHILS % (AUTO) 0.9 % (0.0-2.0); LYMPHOCYTES % (AUTO) 34.1 % (20.0-44.0); MEAN CORPUSCULAR HGB CONC 34 g/dl (31.0-36.0); MEAN CORPUSCULAR VOLUME 93 fL (80-96); MONOCYTES # (AUTO) 0.8 /CMM (0.1-1.30); MONOCYTES % (AUTO) 9.2 % (2.0-12.0); NEUTROPHILS # (AUTO) 4.5 /CMM (1.8-8.9); NEUTROPHILS % (AUTO) 50.8 % (43.0-81.0); PLATELET COUNT (AUTO) 205 /CMM (150-450); WHITE BLOOD COUNT (AUTO) 8.8 K/uL (4.3-11.0)
[2018-10-30 11:39] LABS: CREATININE 0.7 mg/dL (0.6-1.3); POTASSIUM 3.8 mmol/L (3.5-5.1)
[2018-10-30] MEDS: ACETAMINOPHEN 325 MG TABLET PO PRN (12:00)
[2018-10-30 12:21] LABS: RED BLOOD CELL COUNT(AUTO) 1.88 MIL/uL (4.5-6.0)
[2018-10-30 12:25] LABS: HEMATOCRIT 18 % (39-51); HEMOGLOBIN 5.9 g/dL (13.5-17.5)
--- NOTE | 2018-10-30 12:54 | NUR ---
RN MS NOTES DR. QUINN INFORMED OF PT'S LATEST H/H, ORDERED TO TRANSFUSE 2 UNITS PRBC AND 1 UNIT FFP, PT HAS NO ACTIVE BLEEDING AT THIS TIME, IV FLUIDS INFUSING, NO OTHER COMPLAINT, WILL CONTINUE TO MONITOR, ORDERS NOTED AND CARRIED OUT.
[2018-10-30 13:33] LABS: BAND % (MANUAL) 2 % (0.0-5.0); EOSINOPHILS % (MANUAL) 7 % (0-4); LYMPHOCYTES % (MANUAL) 28 % (16-48); MONOCYTES % (MANUAL) 4 % (0-11.0); NEUTROPHILS % (MANUAL) 59 (42-76)
[2018-10-30 14:02] LABS: MEAN CORPUSCULAR HGB CONC 34 g/dl (31.0-36.0); MEAN CORPUSCULAR VOLUME 93 fL (80-96); PLATELET COUNT (AUTO) 207 /CMM (150-450); WHITE BLOOD COUNT (AUTO) 8.3 K/uL (4.3-11.0)
[2018-10-30 14:07] LABS: HEMATOCRIT 17 % (39-51); HEMOGLOBIN 5.9 g/dL (13.5-17.5); RED BLOOD CELL COUNT(AUTO) 1.86 MIL/uL (4.5-6.0)
[2018-10-30] MEDS: HYDROCODONE/APAP 10/325MG 1 EA TABLET PO PRN (17:04)
--- NOTE | 2018-10-30 19:05 | NUR ---
RN MS NOTES PT IN BED, RESTING, NOT IN DISTRESS, STATED THAT HIS PAIN IS BETTER, WITH ONGOING BLOOD TRANSFUSION, TOLERATING WELL, PM MEDS GIVEN, PM CARE PROVIDED, ALL NEEDS ATTENDED.
[2018-10-31] VITALS (12 sets, daily range): BP systolic 94–106; BP diastolic 64–80
[2018-10-31 06:27] LABS: BASOPHILS # (AUTO) 0.1 /CMM (0.0-0.2); BASOPHILS % (AUTO) 0.7 % (0.0-2.0); LYMPHOCYTES % (AUTO) 23.4 % (20.0-44.0); MEAN CORPUSCULAR HGB CONC 34 g/dl (31.0-36.0); MEAN CORPUSCULAR VOLUME 91 fL (80-96); MONOCYTES # (AUTO) 0.8 /CMM (0.1-1.30); MONOCYTES % (AUTO) 9.1 % (2.0-12.0); NEUTROPHILS # (AUTO) 5.6 /CMM (1.8-8.9); NEUTROPHILS % (AUTO) 63.8 % (43.0-81.0); PLATELET COUNT (AUTO) 167 /CMM (150-450); RED BLOOD CELL COUNT(AUTO) 2.22 MIL/uL (4.5-6.0); WHITE BLOOD COUNT (AUTO) 8.7 K/uL (4.3-11.0)
--- NOTE | 2018-10-31 06:40 | NUR ---
MS RN NOTES AWAKE & RESPONSIVE. NOT IN ANY DISTRESS. NO SOB NOTED. DENIES ANY PAIN OR DISCOMFORT AT THIS TIME. WITH IVF INFUSING WELL. MONITORED ACCORDINGLY. CALL LIGHT WITHIN REACH. BED IN LOWEST POSITION. SR UP X 2 FOR SAFETY. WILL ENDORSE TO NEXT SHIFT.
[2018-10-31 06:42] LABS: CALCIUM, SERUM 7.2 mg/dL (8.5-10.1); CREATININE 0.6 mg/dL (0.6-1.3); POTASSIUM 3.3 mmol/L (3.5-5.1)
[2018-10-31 06:53] LABS: HEMOGLOBIN 6.9 g/dL (13.5-17.5)
[2018-10-31 06:54] LABS: HEMATOCRIT 20 % (39-51)
--- NOTE | 2018-10-31 07:09 | NUR ---
MS RN OPENING NOTES RECEIVED PATIENT AWAKE IN BED IN NO ACUTE SIGNS OF DISTRESS. A/OX4. ABLE TO MAKE NEEDS KNOWN, DENIES PAIN OR ANY DISCOMFORTS AT THIS TIME. ON ROOM AIR, BREATHING EVEN AND UNLABORED. IV ACCESS ON LFA G#20 INTACT AND PATENT, IVF OF NS @ 75ML/HR INFUSING WELL, NO REDNESS OR S/S OF INFILTRATIONS AT SITE NOTED. BED IN LOW LOCKED POSITION WITH SIDE RAILS UP X2. CALL LIGHT WITHIN REACH. WILL CONTINUE TO MONITOR.
[2018-10-31] MEDS: SUCRALFATE 1 G/10 ML UDC GT SCH ×4 (07:33→21:16)
--- NOTE | 2018-10-31 08:15 | NUR ---
RN NOTES PATIENT WITH LOW HGB 6.9 AND HCT [address] QUINN MADE AWARE WITH ORDER TO INFUSE PRBC X1. WILL CARRY OUT ORDER.
[2018-10-31] MEDS: LEVETIRACETAM (250 MG) 250 MG TABLET PO SCH ×2 (08:19→21:16)
[2018-10-31] MEDS: THIAMINE HCL 100 MG TABLET PO SCH (08:19)
[2018-10-31] MEDS: FOLIC ACID 1 MG TABLET PO SCH (08:19)
[2018-10-31] MEDS: NEXIUM 40 MG VIAL IV SCH ×2 (08:19→21:16)
[2018-10-31] MEDS: IV NS 0.9% 1,000 ML IV PRN (09:10)
--- NOTE | 2018-10-31 09:38 | NUR ---
RN NOTES PATIENT WITH LOW POTASSIUM 3.3 TODAY. KDUR 20MEQ X1 DOSE ADMINISTERED ORDERED.
[2018-10-31] MEDS ORDERED: POTASSIUM CHLORIDE 20 MEQ TAB.PRT.SR PO SCH (10:00)
--- NOTE | 2018-10-31 11:15 | NUR ---
RN NOTES/BLOOD TRANSFUSION PT STARTED ON BLOOD TRANSFUSION X 1BAG 328 ML PER MD ORDER. V/S TAKEN PRE BLOOD TRANSFUSION; BP 103/72M P 98, R 16 AND T 98.2F. WILL MONITOR FOR ANY ADVERSE OR ALLERGIC REACTIONS.
--- NOTE | 2018-10-31 11:37 | NUR ---
RN NOTES AFTER 15 MINUTES OF BLOOD TRANSFUSION, PT NOTED WITH NO ALLERGIC/ADVERSE REACTIONS NOTED. NO C/O DISCOMFORTS, SOB, ITCHING OR ELEVATED TEMP. WILL CONTINUE TO MONITOR.
--- NOTE | 2018-10-31 14:34 | NUR ---
RN NOTES BLOOD TRANSFUSION OF PRBC X1 BAG JUST FINISHED AND TOLERATED WITH NO ADVERSE OR ALLERGIC REACTIONS NOTED. V/S POST BLOOD TRANSFUSION; BP 106/77, P 96, R 16 AND T 97.9F. WILL CONTINUE TO MONITOR.
--- NOTE | 2018-10-31 18:40 | NUR ---
MS RN CLOSING NOTES PATIENT AWAKE AND LYING AT MODERATE HIGH BACKREST POSITION AT THIS TIME. A/OX4 AND ABLE TO MAKE NEEDS KNOWN. ON ROOM AIR,TOLEARTING WELL WITH NO SOB NOTED THROUGHOUT THE DAY. PIV'S ON RAC G #18 AND LFA G#20 BOTH INTACT AND PATENT, IVF OF NS @ 75ML/HR INFUSING WELL TO LFA, NO REDNESS OR S/S OF INFILTRATIONS AT SITE NOTED. ALL NEEDS AND CARE ATTENDED WELL. BED IN LOW LOCKED POSITION WITH SIDE RAILS UP X2. CALL LIGHT WITHIN REACH. WILL ENDORSE TO PALLET SORTER NURSE FOR AISSATOU.
--- NOTE | 2018-10-31 20:00 | NUR ---
RN NOTES RECEIVED PT. AWAKE ON BED, A/OX3, WITH CONFUSION, NO PAIN NOTED, NO SOB, SAFETY MEASURES WAS IMPLEMENTED, CALL LIGHT WITHIN REACH, SIDERAILSUPX2, CONTINUE TO MONITOR
[2018-11-01 03:30] LABS: BASOPHILS % (AUTO) 0.4 % (0.0-2.0); EOSINOPHILS % (AUTO) 4.8 % (0.0-6.0); HEMATOCRIT 26 % (39-51); HEMOGLOBIN 8.8 g/dL (13.5-17.5); LYMPHOCYTES # (AUTO) 3.2 /CMM (0.8-4.8); LYMPHOCYTES % (AUTO) 30.9 % (20.0-44.0); MEAN CORPUSCULAR HGB CONC 35 g/dl (31.0-36.0); MEAN CORPUSCULAR VOLUME 89 fL (80-96); MONOCYTES # (AUTO) 0.8 /CMM (0.1-1.30); MONOCYTES % (AUTO) 8.2 % (2.0-12.0); NEUTROPHILS # (AUTO) 5.7 /CMM (1.8-8.9); NEUTROPHILS % (AUTO) 55.7 % (43.0-81.0); PLATELET COUNT (AUTO) 161 /CMM (150-450); RED BLOOD CELL COUNT(AUTO) 2.86 MIL/uL (4.5-6.0); WHITE BLOOD COUNT (AUTO) 10.3 K/uL (4.3-11.0)
[2018-11-01 03:44] LABS: CALCIUM, SERUM 7.3 mg/dL (8.5-10.1); CREATININE 0.6 mg/dL (0.6-1.3); MAGNESIUM 1.3 mg/dL (1.8-2.4); PHOSPHORUS 2.7 mg/dL (2.5-4.9); POTASSIUM 3.7 mmol/L (3.5-5.1)
[2018-11-01 04:42] VITALS: BP 139/66
[2018-11-01] MEDS: IV NS 0.9% 1,000 ML IV PRN (06:59)
--- NOTE | 2018-11-01 07:00 | NUR ---
RN NOTES AWAKE, ENDORSED TO DAYSHIFT NURSE REGARDING PT'S GETTING MORE CONFUSED TO KINDLY INFORMED THE DOCTOR, MORNING CARE RENDERED, SAFETY PRECAUTIONS WAS RENDERED, CALL LIGHT WITHIN REACH, SIDERAILSUPX3, PT. NEEDS ATTENDED
--- NOTE | 2018-11-01 07:55 | NUR ---
M/S RN NOTES PATIENT AWAKE IN BED, ALERT AND ORIENTED X2. NO RESPIRATORY DISTRESS, NO C/O PAIN AT THIS TIME. IV ACCESS SITE INTACT AND PATENT. PATIENT'S NEEDS ATTENDED. BED ON LOWEST LOCKED POSITION, CALL LIGHT WITHIN REACH. WILL CONTINUE TO MONITORL
[2018-11-01 08:00] VITALS: BP 117/90
[2018-11-01] MEDS: SUCRALFATE 1 G/10 ML UDC GT SCH ×4 (08:03→21:15)
[2018-11-01] MEDS: FOLIC ACID 1 MG TABLET PO SCH (09:31)
[2018-11-01] MEDS: THIAMINE HCL 100 MG TABLET PO SCH (09:31)
[2018-11-01] MEDS: NEXIUM 40 MG VIAL IV SCH ×2 (09:31→20:31)
[2018-11-01] MEDS: LEVETIRACETAM (250 MG) 250 MG TABLET PO SCH ×2 (09:31→20:31)
[2018-11-01] MEDS: Magnesium 1GM/D5W 100ML PREMIX 100 ML IV SCH ×4 (11:04→14:17)
--- NOTE | 2018-11-01 11:27 | NUR ---
M/S RN NOTES PATIENT SHOWING MORE SIGNS OF CONFUSION, ALERT AND ORIENTED X1. NOTIFIED CHELE QUINN, TERRANCE REGARDING PATIENT'S MENTAL STATUS, PER CHELE QUINN, ORDERED STAT AMMONIA LEVEL AND ABG'S. PATIENT WILL CONTINUE TO MONITOR.
[2018-11-01 11:33] LABS: HEMOGLOBIN 9.4 g/dL (13.5-17.5)
[2018-11-01 12:04] LABS: ABG BASE EXCESS -2.2 mmol/L; ABG OXYGEN SATURATION 96.2 % (92.0-98.5); ABG PCO2 24.5 mmHg (35.0-45.0); ABG PH 7.524 (7.350-7.450); ABG PO2 85.4 mmHg (75.0-100.0); COHb 0.6 % (0.5-1.5); MetHb 0.5 % (0.0-1.5); O2Hb 95.1 % (94.0-97.0); SITE, ABG Right Radial; VENT MODE, BG ROOM AIR
[2018-11-01] MEDS: LACTULOSE UDC 200 G in SODIUM CHLORIDE IRRIG SOLUTION 400 ML IR SCH ×3 (15:23→22:00)
[2018-11-01 16:00] VITALS: BP 126/95
[2018-11-01] MEDS: RIFAXIMIN 550 MG TABLET PO SCH ×2 (16:10→17:00)
--- NOTE | 2018-11-01 17:05 | NUR ---
M/S RN NOTES PATIENT GIVEN FIRST DOSE OF RIFAXIMIN 500MG AT 1610, NEXT DOSE WILL BE AT 0900 TOMORROW
--- NOTE | 2018-11-01 19:10 | NUR ---
MS RN OPENING NOTES Received patient in bed, alert, oriented x 1-2. Breathing even and unlabored. Not in any distress, on room air. Peripheral IV infusing at 75mL/hr. No complaints at this time. Safety measures in place; call light within reach, bed in low, locked position, encouraged to call for assistance. Will continue to monitor accordingly
--- NOTE | 2018-11-01 19:10 | NUR ---
M/S RN NOTES PATIENT AWAKE LYING IN BED. NO RESPIRATORY DISTRESS NOTED, NO C/O PAIN AT THIS TIME. PATIENT GIVEN SECOND DOSE OF LACTULOSE IRRIGATION. PATIENT HAD DARK BLOOD IN STOOL, MD AWARE AND ORDERED H/H AT MIDNIGHT AND AMMONIA LEVEL IN THE AM. PATIENT MADE CLEAN AND DRY. BED ON LOWEST LOCKED POSITION, CALL LIGHT WITHIN REACH. WILL ENDORSE TO ONCOMING NURSE.
[2018-11-01 20:30] VITALS: BP 123/89
--- NOTE | 2018-11-01 21:10 | NUR ---
RN NOTES Patient vomited red blood. Unable to tell how much as patient vomited in a pitcher with water. Next H/H is at midnight. Dr. Catherine informed. As per , no new orders, wait for the H/H at midnight.
--- NOTE | 2018-11-01 23:08 | NUR ---
RN NOTES Order received from Dr. Behzad Trivedi, Lactulose 2mg PO. Clarified order as patient is already on Lactulose UDC 22G IR. As per Dr. Trivedi, if able to tolerate PO lactulose, D/C lactulose enema. Noted and carried out.
[2018-11-01] MEDS: LACTULOSE 10 G/15 ML UDC (PYXIS) PO SCH (23:20)
[2018-11-02] VITALS (33 sets, daily range): BP systolic 37–124; BP diastolic 15–81
--- NOTE | 2018-11-02 01:51 | NUR ---
critical result: received call from lab, regarding critical result for h/h 5.09/19, read back completed. will notify md correctional medicine physician
[2018-11-02 01:52] LABS: HEMOGLOBIN 5.7 g/dL (13.5-17.5)
--- NOTE | 2018-11-02 02:00 | NUR ---
RN Notes: Contacted md education managers, relayed result of h/h 5.09/19, t/o received from md , draw stat h/h. order read back, confirmed and verified/carried out.
[2018-11-02 02:35] LABS: MEAN CORPUSCULAR HGB CONC 33 g/dl (31.0-36.0); MEAN CORPUSCULAR VOLUME 91 fL (80-96); PLATELET COUNT (AUTO) 205 /CMM (150-450)
--- NOTE | 2018-11-02 02:50 | NUR ---
critical result: received call from lab, regarding critical result for h/h 5.09/18, read back completed. will notify md foreman/pile driving and erection
[2018-11-02 02:53] LABS: RED BLOOD CELL COUNT(AUTO) 1.87 MIL/uL (4.5-6.0)
[2018-11-02 02:56] LABS: HEMATOCRIT 17 % (39-51); HEMOGLOBIN 5.7 g/dL (13.5-17.5)
--- NOTE | 2018-11-02 03:05 | NUR ---
rn notes: contacted md furniture salesperson, relayed result of h/h 5.09/18, t/o received from md , transfuse 4 units of prbc, and after completing 3rd unit of blood, stat h/h, then transfuse the 4th unit. order read back, confirmed and verified/carried out.
--- NOTE | 2018-11-02 04:39 | NUR ---
RN NOTES/BLOOD TRANSFUSION PATIENT STARTED ON BLOOD TRANSFUSION X 1BAG 340 ML PER MD ORDER. V/S TAKEN PRE BLOOD TRANSFUSION; BP 87/54 P 114, R 20 AND T 98.5F SPO2 100%. WILL MONITOR FOR ANY ADVERSE OR ALLERGIC REACTIONS.
[2018-11-02] MEDS: LACTULOSE 10 G/15 ML UDC (PYXIS) PO SCH ×4 (05:10→23:07)
--- NOTE | 2018-11-02 07:19 | NUR ---
RN NOTES BLOOD TRANSFUSION OF PRBC X1 BAG JUST FINISHED AND TOLERATED WITH NO ADVERSE OR ALLERGIC REACTIONS NOTED. V/S POST BLOOD TRANSFUSION; BP 91/62, P 112, R 18 AND T 98.7F. WILL CONTINUE TO MONITOR
--- NOTE | 2018-11-02 07:30 | NUR ---
MS RN NOTES PATIENT IN BED EYES CLOSED EASY TO AROUSE, RESPOND TO VERBAL AND TACTILE STIMULI. NO ACUTE DISTRESS NOTED. BREATHING UNLABORED. NO SOB NOTED. IV ACCESS PATENT AND INTACT, NO REDNESS OR SWELLING NOTED. SAFETY MEASURES IN PLACE. CALL LIGHT WITH IN REACH. WILL CONTINUE TO MONITOR ACCORDINGLY.
--- NOTE | 2018-11-02 07:30 | NUR ---
MS RN CLOSING NOTES Patient sleeping in bed, easy to arouse. Breathing even and unlabored. No in any distress. Blood transfusion just finished. Pt. tolerated well. Safety measures in place; call light within reach, bed in low, locked position. Endorsed AISSATOU to AM RN
[2018-11-02] MEDS: SUCRALFATE 1 G/10 ML UDC GT SCH ×4 (07:43→23:06)
--- NOTE | 2018-11-02 07:54 | NUR ---
MS RN NOTES STARTED BLOOD TRANSFUSION, VITAL SIGNS STABLE. NO ACUTE DISTRESS NOTED. BREATHING UNLABORED. WILL CONTINUE TO MONITOR ACCORDINGLY.
--- NOTE | 2018-11-02 08:09 | NUR ---
MS RN NOTES BLOOD TRANSFUSION ON GOING, VITAL SIGNS STABLE. NO ACUTE DISTRESS NOTED. BREATHING UNLABORED. NO ADVERSE REACTION NOTED. WILL CONTINUE TO MONITOR ACCORDINGLY.
[2018-11-02] MEDS: NEXIUM 40 MG VIAL IV SCH ×2 (08:46→21:18)
[2018-11-02] MEDS: FOLIC ACID 1 MG TABLET PO SCH (09:58)
[2018-11-02] MEDS: THIAMINE HCL 100 MG TABLET PO SCH (09:58)
[2018-11-02] MEDS: LEVETIRACETAM (250 MG) 250 MG TABLET PO SCH ×2 (09:59→21:18)
[2018-11-02] MEDS: RIFAXIMIN 550 MG TABLET PO SCH ×2 (09:59→17:14)
--- NOTE | 2018-11-02 12:00 | NUR ---
MS RN NOTES PATIENT NOTED WITH DARK RED BLOOD IN STOOL AND BLOOD CLOTS, NOTIFIED DR CHELE QUINN WITH NO NEW ORDERS MADE AT THIS TIME. NO ACUTE DISTRESS NOTED. PATIENT WITH STABLE VITAL SIGNS. WILL CONTINUE TO MONITOR PATIENT.
--- NOTE | 2018-11-02 13:34 | NUR ---
MS RN NOTES SEEN AND EVALUATED BY DR AARTI QUINN WITH NEW ORDERS MADE, NOTED AND CARRIED OUT.
--- NOTE | 2018-11-02 13:45 | NUR ---
MS RN NOTES PATIENT TRANSFER TO ICU ROOM 254 REPORT GIVEN TO CAMI MUÑOZ AT BEDSIDE. NO ACUTE DISTRESS NOTED, BREATHING UNLABORED, NO SOB NOTED. WITH ON GOING BLOOD TRANSFUSION, NO ADVERSE REACTION OF BLOOD TRANSFUSION NOTED, WITH STABLE VITAL SIGNS. ALL BELONGINGS BROUGHT WITH THE PATIENT.
[2018-11-02] MEDS ORDERED: OCTREOTIDE 50 MCG in IV NS 0.9% 50 ML IV ONE (14:00)
[2018-11-02] MEDS: OCTREOTIDE 1,250 MCG in IV NS 0.9% 247.5 ML IV PRN (14:43)
[2018-11-02] MEDS: IV NS 0.9% 1,000 ML IV PRN (15:52)
--- NOTE | 2018-11-02 16:00 | NUR ---
pt is resting in the bed, a/o x4, SR, on RA sat well, blood transfusion done 3units transfuse, last h/h ., has been having dark-bloody but no clots BMs, urinate in diaper, NPO for possible EGD in AM, v/s stable, no pain, pt turns and repositions by himself, family the bedside.
[2018-11-02 16:13] LABS: BASOPHILS # (AUTO) 0.2 /CMM (0.0-0.2); EOSINOPHILS % (AUTO) 3.2 % (0.0-6.0); HEMATOCRIT 35 % (39-51); HEMOGLOBIN 11.8 g/dL (13.5-17.5); LYMPHOCYTES # (AUTO) 3.3 /CMM (0.8-4.8); LYMPHOCYTES % (AUTO) 29.2 % (20.0-44.0); MEAN CORPUSCULAR HGB CONC 34 g/dl (31.0-36.0); MEAN CORPUSCULAR VOLUME 89 fL (80-96); MONOCYTES % (AUTO) 8.4 % (2.0-12.0); NEUTROPHILS # (AUTO) 6.5 /CMM (1.8-8.9); NEUTROPHILS % (AUTO) 57.2 % (43.0-81.0); PLATELET COUNT (AUTO) 143 /CMM (150-450); RED BLOOD CELL COUNT(AUTO) 3.87 MIL/uL (4.5-6.0); WHITE BLOOD COUNT (AUTO) 11.4 K/uL (4.3-11.0)
[2018-11-02 16:21] LABS: CALCIUM, SERUM 7.4 mg/dL (8.5-10.1); CREATININE 0.8 mg/dL (0.6-1.3); MAGNESIUM 1.8 mg/dL (1.8-2.4); POTASSIUM 4.5 mmol/L (3.5-5.1)
[2018-11-02] MEDS: CEFTRIAXONE 1 G in IV D5W 50 ML IV SCH (18:56)
--- NOTE | 2018-11-02 20:00 | NUR ---
Received patient AAOX4.VS stable.SR per tele monitoring.Respiration even and unlabored. SPO2 99% on RA.NPO except meds for EGD in AM.IVF and Sandostatin gtt infusing well and Site intact.Incontinent of loose dark red stools.Kept clean and dry diaper changed.Encouraged to use urinal to urinate.Patient independent with bed mobility.Safety precaution maintained. Bed in low position and locked.Side rails up and bed alarm on.Call light at bedside.Denies pain. Continue monitoring.
[2018-11-02 21:15] LABS: HEMOGLOBIN 9.2 g/dL (13.5-17.5)
[2018-11-03] VITALS (23 sets, daily range): BP systolic 110–145; BP diastolic 56–98
[2018-11-03 01:08] LABS: HEMOGLOBIN 10.8 g/dL (13.5-17.5)
[2018-11-03 04:35] LABS: BASOPHILS # (AUTO) 0.1 /CMM (0.0-0.2); BASOPHILS % (AUTO) 1.1 % (0.0-2.0); EOSINOPHILS % (AUTO) 4.9 % (0.0-6.0); HEMATOCRIT 33 % (39-51); HEMOGLOBIN 10.8 g/dL (13.5-17.5); LYMPHOCYTES # (AUTO) 3.3 /CMM (0.8-4.8); LYMPHOCYTES % (AUTO) 29.7 % (20.0-44.0); MEAN CORPUSCULAR HGB CONC 33 g/dl (31.0-36.0); MEAN CORPUSCULAR VOLUME 91 fL (80-96); MONOCYTES # (AUTO) 1.1 /CMM (0.1-1.30); MONOCYTES % (AUTO) 10.2 % (2.0-12.0); NEUTROPHILS % (AUTO) 54.1 % (43.0-81.0); PLATELET COUNT (AUTO) 139 /CMM (150-450); RED BLOOD CELL COUNT(AUTO) 3.58 MIL/uL (4.5-6.0); WHITE BLOOD COUNT (AUTO) 11.1 K/uL (4.3-11.0)
[2018-11-03 04:52] LABS: CALCIUM, SERUM 7.6 mg/dL (8.5-10.1); CREATININE 0.7 mg/dL (0.6-1.3); MAGNESIUM 1.7 mg/dL (1.8-2.4); PHOSPHORUS 3.8 mg/dL (2.5-4.9); POTASSIUM 4.1 mmol/L (3.5-5.1)
[2018-11-03] MEDS: LACTULOSE 10 G/15 ML UDC (PYXIS) PO SCH ×4 (05:28→23:12)
[2018-11-03] MEDS: IV NS 0.9% 1,000 ML IV PRN (05:38)
--- NOTE | 2018-11-03 06:30 | NUR ---
Patient resting in no acute distress.Had loose BM large amount with some blood clots.Kept clean and dry. NPO maintained with ivf infusing.Denies pain or any discomfort.Awaiting for EGD.Will endorse to day shift for AISSATOU.
--- NOTE | 2018-11-03 07:56 | NUR ---
LINING VAMPER note Rcvd pt awake and alert, showing no signs of distress/pain, on RA with good O2 saturation, SR/ST on monitor, iv sites c/d/i/patent, ivf infusing as ordered, lines flushed without any signs of infiltration/phlebitis observed. pt NPO at this time aware of EGD today. H&H stable on last two draws. Will continue to monitor pt for safety and comfort, bed in low and locked position, call light within reach, head of bed elevated.
[2018-11-03] MEDS: FOLIC ACID 1 MG TABLET PO SCH (08:11)
[2018-11-03] MEDS: THIAMINE HCL 100 MG TABLET PO SCH (08:11)
[2018-11-03] MEDS: SUCRALFATE 1 G/10 ML UDC GT SCH ×4 (08:11→21:09)
[2018-11-03] MEDS: NEXIUM 40 MG VIAL IV SCH ×2 (08:11→21:10)
[2018-11-03] MEDS: RIFAXIMIN 550 MG TABLET PO SCH ×2 (08:11→16:34)
[2018-11-03] MEDS: LEVETIRACETAM (250 MG) 250 MG TABLET PO SCH ×2 (08:11→21:09)
[2018-11-03 10:18] LABS: BASOPHILS # (AUTO) 0.1 /CMM (0.0-0.2); HEMATOCRIT 31 % (39-51); HEMOGLOBIN 10.4 g/dL (13.5-17.5); LYMPHOCYTES # (AUTO) 2.7 /CMM (0.8-4.8); LYMPHOCYTES % (AUTO) 26.9 % (20.0-44.0); MEAN CORPUSCULAR HGB CONC 34 g/dl (31.0-36.0); MEAN CORPUSCULAR VOLUME 91 fL (80-96); MONOCYTES % (AUTO) 9.6 % (2.0-12.0); NEUTROPHILS # (AUTO) 5.7 /CMM (1.8-8.9); NEUTROPHILS % (AUTO) 57.5 % (43.0-81.0); PLATELET COUNT (AUTO) 146 /CMM (150-450); RED BLOOD CELL COUNT(AUTO) 3.37 MIL/uL (4.5-6.0)
[2018-11-03] MEDS ORDERED: FENTANYL PF 100MCG/2ML AMPUL ONE (11:38)
[2018-11-03] MEDS ORDERED: FAMOTIDINE/PF INJ 20 MG/2 ML VIAL IV ONE (11:39)
--- NOTE | 2018-11-03 11:50 | NUR ---
INFORMATION SYSTEMS SECURITY DEVELOPER note Pt taken to OR for EGD, transported by bed with OR staff per protocol. Pt awake and alert on RA without any signs of distress/pain.
--- NOTE | 2018-11-03 13:35 | NUR ---
OVERLOCK HEMMER note Pt brought back from OR showing no s/o distress/pain, vital signs remain stable, on RA with saturation 98%, per report no active bleeding/no banding during EGD to start clear liquid diet and continue with sandostatin drip. Will continue to monitor pt for safety and comfort. bed in low and locked position, call light within reach, head of bed elevated.
[2018-11-03] MEDS: Magnesium 1GM/D5W 100ML PREMIX 100 ML IV SCH ×2 (13:46→16:28)
--- NOTE | 2018-11-03 17:07 | NUR ---
RECEIVED PHONE REPORT FROM GUILLERMINA MUÑOZ ICU.
--- NOTE | 2018-11-03 17:30 | NUR ---
PT TRANSFERRED FROM ICU TO TELE ROOM 110. PT AWAKE, ALERT ORIENTED X 4, ON ROOM AIR, SATURATING WELL, RESPIRATIONS EASY AND UNLABORED, NO SIGNS OF RESPIRATORY DISTRESS. PT ON CLEAR LIQUID DIET. LEFT FOREARM G 22 FLUSHED WITH NS, PATENT. RIGHT HAND G20, FLUSHED WITH NS, PATENT. ALL BELONGINGS ACCOUNTED FOR. HEAD TO TOE ASSESSMENT PERFORMED. BED IN LOW POSITION, LOCKED, CALL LIGHT WITHIN REACH.
--- NOTE | 2018-11-03 17:47 | NUR ---
MACHINE LEARNING INTERN Note Pt transported to [facility] room 110 via bed with RN at bedside in stable condition, vital signs remained stable during transport. Report called in to TONI Cast. Pt connected to tele monitoring and TONI Cast called to bedside. Pt's family at bedside. Medications and pt's belongings transported with pt.
[2018-11-03] MEDS: OCTREOTIDE 1,250 MCG in IV NS 0.9% 247.5 ML IV PRN (18:35)
[2018-11-03] MEDS: CEFTRIAXONE 1 G in IV D5W 50 ML IV SCH (18:36)
--- NOTE | 2018-11-03 19:13 | NUR ---
CHEMICAL TEST ENGINEER CLOSING NOTE PT AWAKE IN BED, ALERT AND ORIENTED X 4, ON ROOM AIR, SATURATING WELL, NO SIGNS OF RESPIRATORY DISTRESS NOTED. SINUS RHYTHM ON FISH AND WILDLIFE SCIENTIFIC AID. BED IN LOW POSITION, LOCKED, CALL LIGHT WITHIN REACH. PT'S FAMILY TOOK ALL OF PATIENT'S CLOTHING HOME, BELONGINGS FORM UPDATED ACCORDINGLY. WILL ENDORSE TO [facility] SHIFT NURSE.
--- NOTE | 2018-11-03 19:26 | NUR ---
LEFT FOREARM G 22 FLUSHED WITH NS, LINE IS LEAKING. NOC SHIFT NURSE NOTIFIED.
--- NOTE | 2018-11-03 19:30 | NUR ---
CLOUD ARCHITECT NOTE: RECEIVED PT ON BED ALERT AND ORIENTED X3. ABLE TO MAKE NEEDS KNOWN. NO APPARENT DISTRESS NOTED. DENIES PAIN AND DISCOMFORT AT THIS TIME. ON ROOM AIR, NO SOB NOTED. SINUS RHYTHM ON TELE MONITOR HR 84BPM. IV ON RIGHT HAND #20 INTACT AND PATENT, FLUSHING WELL. REINSERTED ANOTHER IV LINE ON LEFT HAND #22, NO SIGNS/SYMPTOMS OF INFILTRATION NOTED. KEPT CLEAN, DRY AND COMFORTABLE. CALL LIGHT PLACED WITHIN REACH. SAFETY AND FALL PRECAUTIONS OBSERVED AND MAINTAINED. WILL CONTINUE TO MONITOR PT
[2018-11-04] VITALS: BP 131/84
[2018-11-04] MEDS: IV NS 0.9% 1,000 ML IV PRN ×2 (01:50→15:12)
[2018-11-04 04:00] VITALS: BP 137/95
[2018-11-04] MEDS: LACTULOSE 10 G/15 ML UDC (PYXIS) PO SCH ×4 (05:21→22:34)
[2018-11-04 06:20] LABS: BASOPHILS # (AUTO) 0.1 /CMM (0.0-0.2); BASOPHILS % (AUTO) 1.2 % (0.0-2.0); EOSINOPHILS % (AUTO) 6.5 % (0.0-6.0); HEMATOCRIT 28 % (39-51); HEMOGLOBIN 9.3 g/dL (13.5-17.5); LYMPHOCYTES # (AUTO) 2.3 /CMM (0.8-4.8); LYMPHOCYTES % (AUTO) 27.5 % (20.0-44.0); MEAN CORPUSCULAR HGB CONC 33 g/dl (31.0-36.0); MEAN CORPUSCULAR VOLUME 90 fL (80-96); MONOCYTES % (AUTO) 11.7 % (2.0-12.0); NEUTROPHILS # (AUTO) 4.4 /CMM (1.8-8.9); NEUTROPHILS % (AUTO) 53.1 % (43.0-81.0); PLATELET COUNT (AUTO) 147 /CMM (150-450); RED BLOOD CELL COUNT(AUTO) 3.07 MIL/uL (4.5-6.0); WHITE BLOOD COUNT (AUTO) 8.3 K/uL (4.3-11.0)
[2018-11-04 06:56] LABS: CALCIUM, SERUM 7.2 mg/dL (8.5-10.1); CREATININE 0.7 mg/dL (0.6-1.3); MAGNESIUM 1.5 mg/dL (1.8-2.4); PHOSPHORUS 3.9 mg/dL (2.5-4.9); POTASSIUM 3.5 mmol/L (3.5-5.1)
--- NOTE | 2018-11-04 07:20 | NUR ---
RN INITIAL NOTE PATIENT IN BED, AWAKE AND ALERTX4. WAS COMPLAINING WHEN HIS DIET WILL BE ADVANCED. WILL LET MD AWARE ABOUT THE PATIENT'S CONCERNS. ON ROOM AIR, NO COMPLAINS OF ANY PAIN NOR SOB AT THIS TIME. ON TELE MONITOR, SR. HAS RIGHT HAND #20 AND LEFT HAND #22 WITH NS AT 75 ML/HR. BED LOCKED AND IN LOW POSITION. CALL LIGHT WITHIN REACH. WILL CONT TO MONITOR
--- NOTE | 2018-11-04 07:23 | NUR ---
PHOTO RETOUCHER NOTE: NO CHANGES NOTED THROUGHOUT THE SHIFT. NO ACUTE DISTRESS NOTED. DENIES PAIN AND DISCOMFORT AT THIS TIME. ON ROOM AIR, NO SOB NOTED. SINUS RHYTHM ON TELE MONITOR 86 BPM. IV ON RIGHT HAND #20 AND LEFT HAND #22 INTACT AND PATENT, IVF INFUSING WELL. NO SIGNS/SYMPTOMS OF ASPIRATION NOTED. CALL LIGHT PLACED WITHIN REACH. KEPT CLEAN, DRY AND COMFORTABLE. WILL ENDORSE TO DAY SHIFT RN FOR CONTINUITY OF CARE.
[2018-11-04 08:00] VITALS: BP 115/85
[2018-11-04] MEDS: FOLIC ACID 1 MG TABLET PO SCH (08:27)
[2018-11-04] MEDS: LEVETIRACETAM (250 MG) 250 MG TABLET PO SCH ×2 (08:27→21:29)
[2018-11-04] MEDS: RIFAXIMIN 550 MG TABLET PO SCH ×2 (08:27→17:20)
[2018-11-04] MEDS: SUCRALFATE 1 G/10 ML UDC GT SCH ×4 (08:27→21:29)
[2018-11-04] MEDS: NEXIUM 40 MG VIAL IV SCH ×2 (08:27→21:33)
[2018-11-04] MEDS: THIAMINE HCL 100 MG TABLET PO SCH (08:27)
--- NOTE | 2018-11-04 08:58 | NUR ---
RN NOTE ADVANCED DIET TO FULL LIQUID. PATIENT HAS BEEN COMPLAINING THAT HE DOES NOT WANT THE CLEAR LIQUID. EXPLAINED THE IMPORTANCE OF ADVANCING DIET STATUS POST EGD. PER DR MARISCAL'S ORDERS - RESUME PREVIOUS DIET OR ADVANCE DIET TOLERATED
[2018-11-04 10:19] LABS: BASOPHILS # (AUTO) 0.1 /CMM (0.0-0.2); BASOPHILS % (AUTO) 1.3 % (0.0-2.0); EOSINOPHILS % (AUTO) 6.4 % (0.0-6.0); HEMATOCRIT 26 % (39-51); HEMOGLOBIN 8.8 g/dL (13.5-17.5); LYMPHOCYTES # (AUTO) 1.7 /CMM (0.8-4.8); LYMPHOCYTES % (AUTO) 22.8 % (20.0-44.0); MEAN CORPUSCULAR HGB CONC 34 g/dl (31.0-36.0); MEAN CORPUSCULAR VOLUME 91 fL (80-96); MONOCYTES # (AUTO) 0.8 /CMM (0.1-1.30); NEUTROPHILS # (AUTO) 4.4 /CMM (1.8-8.9); NEUTROPHILS % (AUTO) 58.5 % (43.0-81.0); PLATELET COUNT (AUTO) 131 /CMM (150-450); RED BLOOD CELL COUNT(AUTO) 2.85 MIL/uL (4.5-6.0); WHITE BLOOD COUNT (AUTO) 7.6 K/uL (4.3-11.0)
[2018-11-04] MEDS: Magnesium 1GM/D5W 100ML PREMIX 100 ML IV SCH ×2 (11:00→12:18)
[2018-11-04 12:00] VITALS: BP 127/89
--- NOTE | 2018-11-04 14:00 | NUR ---
RN NOTE CORD MAKER REPORTED, PATIENT'S DIAPER HAS VISIBLE RED BLOOD IN URINE. DR MARISCAL AWARE ABOUT THE ACTIVE BLEEDING. DIET CHANGED BACK TO CLEAR LIQUIDS
--- NOTE | 2018-11-04 15:51 | NUR ---
RN NOTE DR MARISCAL AT BEDSIDE, REFERRING PATIENT TO BE TRANSFERRED TO A TERTIARY CENTER FOR TIPS TO PREVENT RE-BLEEDING. PAGED DR QUINN THROUGH [facility] AND MADE HIM AWARE. HE WILL WORK ON TRANSFERRING THE PATIENT
[2018-11-04 16:00] VITALS: BP 121/79
[2018-11-04] MEDS: CEFTRIAXONE 1 G in IV D5W 50 ML IV SCH (17:20)
--- NOTE | 2018-11-04 19:15 | NUR ---
RN CLOSING NOTE PATIENT IN BED AWAKE AND ALERTX4. AWARE ABOUT THE POSSIBLE TRANSFER TO [facility] TOMORROW FOR TERTIARY CENTER FOR TIPS PER DR MARISCAL. ALL MEDS GIVEN. NO COMPLAINS OF ANY PAIN NOR SOB. ON CLEAR LIQUID DIET. BED LOCKED AND IN LOWEST POSITION. CALL LIGHT WITHIN REACH. WILL ENDORSE TO NOC SHIFT
[2018-11-04 20:00] VITALS: BP 130/94
--- NOTE | 2018-11-04 20:00 | NUR ---
[facility] RN NOTE: RECEIVED BEDSIDE REPORT FROM AM RN. PT IN BED ALERT AND ORIENTED X3. ABLE TO MAKE NEEDS KNOWN. NO APPARENT DISTRESS NOTED. COMPLAIN OF STOMACH PAIN7/10 AND DISCOMFORT AT THIS TIME. ON ROOM AIR, NO SOB NOTED. SINUS RHYTHM ON TELE MONITOR . IV ON RIGHT HAND #20 INTACT AND PATENT, FLUSHING WELL. IV LINE ON LEFT HAND #22 IS PATIENT AND INTACT WELL, NO SIGNS/SYMPTOMS OF INFILTRATION NOTED. PATIENT IS CLEAN, DRY AND COMFORTABLE. CALL LIGHT PLACED WITHIN REACH. SAFETY AND FALL PRECAUTIONS OBSERVED AND MAINTAINED. WILL CONTINUE TO MONITOR PATIENT CLOSELY.
[2018-11-04] MEDS: HYDROCODONE/APAP 10/325MG 1 EA TABLET PO PRN (21:30)
[2018-11-04] MEDS: OCTREOTIDE 1,250 MCG in IV NS 0.9% 247.5 ML IV PRN (21:35)
[2018-11-05] VITALS: BP 107/87
[2018-11-05 04:00] VITALS: BP 117/82
[2018-11-05] MEDS: LACTULOSE 10 G/15 ML UDC (PYXIS) PO SCH ×4 (06:00→23:37)
[2018-11-05 06:21] LABS: BASOPHILS # (AUTO) 0.1 /CMM (0.0-0.2); BASOPHILS % (AUTO) 1.1 % (0.0-2.0); EOSINOPHILS % (AUTO) 5.7 % (0.0-6.0); HEMATOCRIT 27 % (39-51); HEMOGLOBIN 9.3 g/dL (13.5-17.5); LYMPHOCYTES % (AUTO) 27.2 % (20.0-44.0); MEAN CORPUSCULAR HGB CONC 34 g/dl (31.0-36.0); MEAN CORPUSCULAR VOLUME 92 fL (80-96); MONOCYTES # (AUTO) 0.8 /CMM (0.1-1.30); MONOCYTES % (AUTO) 10.2 % (2.0-12.0); NEUTROPHILS # (AUTO) 4.1 /CMM (1.8-8.9); NEUTROPHILS % (AUTO) 55.8 % (43.0-81.0); PLATELET COUNT (AUTO) 155 /CMM (150-450); RED BLOOD CELL COUNT(AUTO) 2.99 MIL/uL (4.5-6.0); WHITE BLOOD COUNT (AUTO) 7.4 K/uL (4.3-11.0)
[2018-11-05 06:47] LABS: CREATININE 0.7 mg/dL (0.6-1.3); MAGNESIUM 1.4 mg/dL (1.8-2.4); PHOSPHORUS 4.2 mg/dL (2.5-4.9); POTASSIUM 3.1 mmol/L (3.5-5.1)
--- NOTE | 2018-11-05 07:00 | NUR ---
[facility] RN CLOSING NOTE: PT IN BED ALERT AND ORIENTED X3. ABLE TO MAKE NEEDS KNOWN. NO APPARENT DISTRESS NOTED. NO COMPLAIN OF PAIN AND DISCOMFORT AT THIS TIME. ON ROOM AIR, NO SOB NOTED. SINUS RHYTHM ON TELE MONITOR DURING THE SHIFT. IV ON RIGHT HAND #20 INTACT AND PATENT, FLUSHING WELL. IV LINE ON LEFT HAND #22 IS PATIENT AND INTACT WELL, NO SIGNS/SYMPTOMS OF INFILTRATION NOTED. PATIENT IS CLEAN, DRY AND COMFORTABLE. CALL LIGHT PLACED WITHIN REACH. SAFETY AND FALL PRECAUTIONS OBSERVED AND MAINTAINED. WILL ENDORSE PT CARE TO AM RN FOR HOTEL OPERATION MANAGER.
[2018-11-05 08:00] VITALS: BP 122/89
--- NOTE | 2018-11-05 08:00 | NUR ---
REFRIGERATION SERVICE INSPECTOR NOTE RECEIVED PATIENT IN BED , ALL NEEDS ATTENDED ,ALERT,ORIENTED X3 , ON TELE MONITOR SR 91, RT AND LT HAND HL INTACT ON IVF AND SANDOSTATIN DRIP ORDERED INFUSING WELL ,HAVING BREAKFAST, ATE 100%, PLAN OF CARE DISCUSSED WITH PATIENT, NO SOB NOTED . ON RA , NOT IN DISTRESS, WILL CONT TO MONITOR CLOSELY
[2018-11-05] MEDS: SUCRALFATE 1 G/10 ML UDC GT SCH ×4 (08:17→21:16)
[2018-11-05] MEDS: FOLIC ACID 1 MG TABLET PO SCH (08:18)
[2018-11-05] MEDS: RIFAXIMIN 550 MG TABLET PO SCH ×2 (08:18→16:48)
[2018-11-05] MEDS: THIAMINE HCL 100 MG TABLET PO SCH (08:18)
[2018-11-05] MEDS: LEVETIRACETAM (250 MG) 250 MG TABLET PO SCH ×2 (08:18→20:54)
[2018-11-05] MEDS: NEXIUM 40 MG VIAL IV SCH ×2 (08:18→20:54)
[2018-11-05] MEDS: IV NS 0.9% 1,000 ML IV PRN (09:15)
--- NOTE | 2018-11-05 09:56 | NUR ---
EMANATIONS ANALYSIS TECHNICIAN NOTE SEEN BU DR CASTANO GI AWARE THAT NO BLOODY STOOL NOTED , ALSO AWARE THAT HG 9.3
[2018-11-05 10:19] LABS: BASOPHILS # (AUTO) 0.1 /CMM (0.0-0.2); BASOPHILS % (AUTO) 1.2 % (0.0-2.0); EOSINOPHILS % (AUTO) 6.3 % (0.0-6.0); HEMATOCRIT 28 % (39-51); LYMPHOCYTES # (AUTO) 1.8 /CMM (0.8-4.8); LYMPHOCYTES % (AUTO) 23.1 % (20.0-44.0); MEAN CORPUSCULAR HGB CONC 33 g/dl (31.0-36.0); MEAN CORPUSCULAR VOLUME 95 fL (80-96); MONOCYTES # (AUTO) 0.8 /CMM (0.1-1.30); MONOCYTES % (AUTO) 10.1 % (2.0-12.0); NEUTROPHILS # (AUTO) 4.6 /CMM (1.8-8.9); NEUTROPHILS % (AUTO) 59.3 % (43.0-81.0); PLATELET COUNT (AUTO) 142 /CMM (150-450); WHITE BLOOD COUNT (AUTO) 7.7 K/uL (4.3-11.0)
[2018-11-05] MEDS: POTASSIUM CHLORIDE 20 MEQ TAB.PRT.SR PO SCH ×2 (10:44→11:07)
[2018-11-05] MEDS: Magnesium 1GM/D5W 100ML PREMIX 100 ML IV SCH ×2 (11:06→12:25)
--- NOTE | 2018-11-05 11:34 | NUR ---
MS RN NOTES PT IN BED SITTING COMFORTABLY. NO SOB NOTED AT THIS TIME. ABDOMEN DISTENTION OBSERVED NO COMPLAIN OF PAIN. DISCUSSED THE PT SITUATION WITH HAYLEE PARKINSON RN ENGINEERING DRAWINGS CHECKER AND SHE ORDERED TO INITIATE THE PT TRANSFER. WILL FOLLOW UP WITH SENIOR STRUCTURAL ENGINEER.
[2018-11-05] MEDS: LORAZEPAM INJ 2 MG/ML VIAL IV PRN (12:31)
--- NOTE | 2018-11-05 13:07 | NUR ---
MS RN NOT C\O ABDOMINAL PAIN 8\10 AND ANXIETY HAYLEE RN BUSINESS CONTINUITY MANAGEMENT DIRECTOR AT BEDSIDE WITH ORDER OK ATIVAN .AWARE OF ABDOMINAL DISTENTION
[2018-11-05 16:00] VITALS: BP 134/96
[2018-11-05] MEDS: CEFTRIAXONE 1 G in IV D5W 50 ML IV SCH (16:54)
--- NOTE | 2018-11-05 17:37 | NUR ---
MS RN NOTE ALL NEEDS ATTENDED, MADE A BM, ON IVF ORDERED AND SANDOSTATIN DRIP ORDERED
--- NOTE | 2018-11-05 19:13 | NUR ---
MS RN NOTES PT IN BED SITTING COMFORTABLY. NO SIGNS OR SOB AND DISCOMFORT NOTED AT THIS TIME. ALL NEEDS ATTENDED. FOR PT SAFETY, LOCKED THE BED AT THE LOWEST POSITION AND SIDE RAILS UPX2. CALL LIGHT IN REACH. HL ON RIGHT AND LEFT HAND INTACT, FLUSHED WELL. WILL ENDORSE TO PM NURSE.
--- NOTE | 2018-11-05 19:35 | NUR ---
MS RN OPENING NOTES PT IN BED. NO SIGNS OR SYMPTOMS OF ACUTE DISTRESS NOTED. WILL ATTEND TO ALL NEEDS. SAFETY PRECAUTIONS IN PLACE. FOR PT SAFETY, LOCKED THE BED AT THE LOWEST POSITION AND SIDE RAILS UPX2. CALL LIGHT IN REACH. HL ON RIGHT AND LEFT HAND INTACT, FLUSHED WELL. WILL CONTINUE TO MONITER AND CARRY OUT PLAN OF CARE.
[2018-11-05 20:00] VITALS: BP 123/89
[2018-11-06] VITALS: BP_SYST 123; BP_SYST 149; BP_DIAS 79; BP_DIAS 89
[2018-11-06] MEDS: OCTREOTIDE 1,250 MCG in IV NS 0.9% 247.5 ML IV PRN (01:36)
[2018-11-06 04:00] VITALS: BP_SYST 111; BP_SYST 116; BP_DIAS 78; BP_DIAS 81
[2018-11-06] MEDS: IV NS 0.9% 1,000 ML IV PRN ×2 (04:27→19:13)
[2018-11-06] MEDS: LACTULOSE 10 G/15 ML UDC (PYXIS) PO SCH ×4 (04:28→21:39)
--- NOTE | 2018-11-06 06:29 | NUR ---
RN CLOSING NOTE: PT IN BED ALERT AND ORIENTED X3. AMBULATORY WITH ASSIT. ALL NEEDS MET. IV LINE ON LEFT HAND #22 IS PATIENT AND INTACT WELL, NO SIGNS/SYMPTOMS OF INFILTRATION NOTED. PATIENT IS CLEAN, DRY AND COMFORTABLE. CALL LIGHT PLACED WITHIN REACH. SAFETY AND FALL PRECAUTIONS OBSERVED AND MAINTAINED. WILL ENDORSE CARE TO AM RN TO CARRY OUT PLAN OF CARE. .
--- NOTE | 2018-11-06 07:10 | NUR ---
MS RN OPENING NOTES RECEIVED REPORT AT BEDSIDE. PT IN BED A/OX4. NO SIGNS OR SYMPTOMS OF ACUTE RESPIRATORY DISTRESS OR SOB NOTED. L HAND IV #24 RUNNING NS @75ML/HR. R HAND#22 SALINE LOCK, PATENT, INTACT, AND FLUSHED WELL. SAFETY PRECAUTIONS IN PLACE. BED LOCKED AND AT THE LOWEST POSITION AND SIDE RAILS UPX2. CALL LIGHT IN REACH. BED ALARM ON. WILL CONTINUE TO MONITOR AND CARRY OUT PLAN OF CARE.
[2018-11-06 07:56] LABS: CALCIUM, SERUM 7.6 mg/dL (8.5-10.1); CREATININE 0.6 mg/dL (0.6-1.3); MAGNESIUM 1.4 mg/dL (1.8-2.4); PHOSPHORUS 3.9 mg/dL (2.5-4.9); POTASSIUM 3.6 mmol/L (3.5-5.1)
[2018-11-06 08:00] VITALS: BP 98/77
[2018-11-06] MEDS: FOLIC ACID 1 MG TABLET PO SCH (08:06)
[2018-11-06] MEDS: LEVETIRACETAM (250 MG) 250 MG TABLET PO SCH ×2 (08:06→20:34)
[2018-11-06] MEDS: THIAMINE HCL 100 MG TABLET PO SCH (08:06)
[2018-11-06] MEDS: RIFAXIMIN 550 MG TABLET PO SCH ×2 (08:06→16:54)
[2018-11-06] MEDS: NEXIUM 40 MG VIAL IV SCH ×2 (08:07→20:33)
[2018-11-06] MEDS: SUCRALFATE 1 G/10 ML UDC GT SCH ×4 (08:07→21:03)
[2018-11-06] MEDS: Magnesium 1GM/D5W 100ML PREMIX 100 ML IV SCH ×2 (11:22→12:48)
[2018-11-06] MEDS: LORAZEPAM INJ 2 MG/ML VIAL IV PRN ×2 (11:22→21:04)
[2018-11-06 11:30] LABS: BASOPHILS # (AUTO) 0.1 /CMM (0.0-0.2); BASOPHILS % (AUTO) 0.9 % (0.0-2.0); EOSINOPHILS % (AUTO) 4.4 % (0.0-6.0); HEMATOCRIT 29 % (39-51); HEMOGLOBIN 9.8 g/dL (13.5-17.5); LYMPHOCYTES # (AUTO) 1.8 /CMM (0.8-4.8); LYMPHOCYTES % (AUTO) 24.5 % (20.0-44.0); MEAN CORPUSCULAR HGB CONC 34 g/dl (31.0-36.0); MEAN CORPUSCULAR VOLUME 93 fL (80-96); MONOCYTES # (AUTO) 0.7 /CMM (0.1-1.30); MONOCYTES % (AUTO) 9.7 % (2.0-12.0); NEUTROPHILS # (AUTO) 4.5 /CMM (1.8-8.9); NEUTROPHILS % (AUTO) 60.5 % (43.0-81.0); PLATELET COUNT (AUTO) 186 /CMM (150-450); RED BLOOD CELL COUNT(AUTO) 3.11 MIL/uL (4.5-6.0); WHITE BLOOD COUNT (AUTO) 7.5 K/uL (4.3-11.0)
--- NOTE | 2018-11-06 11:45 | NUR ---
MS RN NOTE PT IS SO AGITATED AND REQUESTING TO HAVE REGULAR DIET INSTEAD OF CLEAR LIQUID. DR MARISCAL MADE AWARE. PT IS GOING TO TRANSFER TO ANOTHER HOSPITAL TODAY FOR TIPS. EXPLAINED THE REASON OF HAVING HIM ON CLEAR LIQUID. STILL SO AGITATED AND THREATENING. ATIVAN 1 MG GIVEN. WILL CONTINUE TO MONITOR.
--- NOTE | 2018-11-06 11:45 | NUR ---
MS RN NOTE SANDOSTATIN IV HOLD B/C PT HAS ORDER OF MAGNESIUM. PHARMACY MADE AWARE.
--- NOTE | 2018-11-06 12:20 | NUR ---
MS RN NOTE PT STILL AGITATED. THREATENING TO THROW UP THE FOOD ON THE ENERGY RISK MANAGEMENT ANALYST. HIS SISTER AT BEDSIDE AND I EXPLAINED THE REASON WE NEED TO HAVE PT ON CLEAR LIQUID. SISTER VERBALIZED UNDERSTANDING BUT THE PT IS STILL COMPLAINING.
--- NOTE | 2018-11-06 13:15 | NUR ---
MS RN NOTE PATRICIO'S SISTER AT BESIDE ASKED TO TALK TO THE SOLAR PROJECT MANAGER REGARDING TRANSFERRING PT TO ANOTHER HOSPITAL. SENT TO THE SOLAR PROJECT MANAGERHAND II THERMAL CUTTER.
[2018-11-06 16:00] VITALS: BP 117/88
[2018-11-06] MEDS: CEFTRIAXONE 1 G in IV D5W 50 ML IV SCH (17:42)
--- NOTE | 2018-11-06 18:01 | NUR ---
MS RN NOTE LEFT HAND IV REMOVED DUE TO LEAKAGE.
--- NOTE | 2018-11-06 18:59 | NUR ---
RN CLOSING NOTE: PT IN BED ALERT AND ORIENTED X4. NO SIGN OF RESPIRATORY DISTRESS OR SOB NOTED. IV LINE ON R HAND #20 NS @75 ML/HR. NO SIGNS/SYMPTOMS OF INFILTRATION NOTED. PATIENT IS CLEAN, DRY AND COMFORTABLE. SAFETY AND FALL PRECAUTIONS OBSERVED AND MAINTAINED. BED AT THE LOWEST POSITION AND LOCKED, SIDE RAILS UPX2, CALL LIGHT WITHIN THE REACH. ALL NEEDS ATTENDANT. WILL ENDORSE TO THE SUPPLY CHAIN PROJECT MANAGER NURSE FOR AISSATOU.
--- NOTE | 2018-11-06 19:35 | NUR ---
RN OPENING NOTE: PT IN BED. ASLEEP. SIGN OF RESPIRATORY DISTRESS OR SOB NOTED. IV LINE ON R HAND #20 NS @75 ML/HR. NO SIGNS/SYMPTOMS OF INFILTRATION NOTED. PATIENT IS CLEAN, DRY AND COMFORTABLE. SAFETY AND FALL PRECAUTIONS OBSERVED AND MAINTAINED. BED AT THE LOWEST POSITION AND LOCKED, SIDE RAILS UPX2, CALL LIGHT WITHIN THE REACH. WILL CONTINUE TO MONITER AND CARRY OUT PLAN OF CARE THROUGH SHIFT.
[2018-11-07] VITALS: BP 117/88
[2018-11-07] MEDS: LACTULOSE 10 G/15 ML UDC (PYXIS) PO SCH ×4 (04:37→21:57)
--- NOTE | 2018-11-07 06:53 | NUR ---
RN CLOSING NOTE: PT IN BED ASLEEP. ALL NEEDS MET. KEPT CLEAN AND DRY. PT IS ALERT AND ORIENTED X4. WILL ENDORSE TO AM SHIFT ABOUT PLAN TO TRANSFER PT TO [place] FOR TIPS PLACEMENT. NOTED THAT SANDOSTAIN IV OK TO HOLD DURING TRANSFER. IN NO ACUTE DISTRESS, SATTURING WELL ON ROOM AIR. VITALS STABLE. NO SIGN OF RESPIRATORY DISTRESS OR SOB NOTED. IV LINE ON R HAND #20 NS @75 ML/HR. SAFETY AND FALL PRECAUTIONS OBSERVED AND MAINTAINED. BED AT THE LOWEST POSITION AND LOCKED, SIDE RAILS UPX2, CALL LIGHT WITHIN THE REACH. . WILL ENDORSE TO AM SHIFT NURSE FOR AISSATOU.
[2018-11-07 07:10] LABS: BASOPHILS # (AUTO) 0.1 /CMM (0.0-0.2); BASOPHILS % (AUTO) 0.9 % (0.0-2.0); EOSINOPHILS % (AUTO) 4.3 % (0.0-6.0); HEMATOCRIT 27 % (39-51); HEMOGLOBIN 9.2 g/dL (13.5-17.5); LYMPHOCYTES # (AUTO) 2.1 /CMM (0.8-4.8); LYMPHOCYTES % (AUTO) 23.7 % (20.0-44.0); MEAN CORPUSCULAR HGB CONC 34 g/dl (31.0-36.0); MEAN CORPUSCULAR VOLUME 91 fL (80-96); MONOCYTES % (AUTO) 10.6 % (2.0-12.0); NEUTROPHILS # (AUTO) 5.4 /CMM (1.8-8.9); NEUTROPHILS % (AUTO) 60.5 % (43.0-81.0); PLATELET COUNT (AUTO) 168 /CMM (150-450); RED BLOOD CELL COUNT(AUTO) 2.92 MIL/uL (4.5-6.0)
[2018-11-07 07:42] LABS: CALCIUM, SERUM 6.8 mg/dL (8.5-10.1); CREATININE 0.6 mg/dL (0.6-1.3); PHOSPHORUS 3.6 mg/dL (2.5-4.9); POTASSIUM 3.6 mmol/L (3.5-5.1)
[2018-11-07 07:52] LABS: MAGNESIUM 1.3 mg/dL (1.8-2.4)
[2018-11-07 08:00] VITALS: BP 100/70
[2018-11-07] MEDS: RIFAXIMIN 550 MG TABLET PO SCH ×2 (08:31→16:46)
[2018-11-07] MEDS: FOLIC ACID 1 MG TABLET PO SCH (08:31)
[2018-11-07] MEDS: THIAMINE HCL 100 MG TABLET PO SCH (08:31)
[2018-11-07] MEDS: SUCRALFATE 1 G/10 ML UDC GT SCH ×4 (08:31→21:57)
[2018-11-07] MEDS: LEVETIRACETAM (250 MG) 250 MG TABLET PO SCH ×2 (08:31→21:58)
[2018-11-07] MEDS: NEXIUM 40 MG VIAL IV SCH ×2 (08:33→21:00)
--- NOTE | 2018-11-07 08:49 | NUR ---
WOUND CARE CONSULT: PT PRESENTS AMBULATORY BUT HAS INCONTINENT EPISODES OF LOOSE STOOL AT TIMES. LEFT KNEE SCAB PREVIOUSLY FELL OFF. SKIN IS INTACT. RECOMMENDATIONS MADE FOR SKIN PROTECTION AND DISCUSSED WITH NURSING STAFF. WILL SEE PRN. DELONG IN AGREEMENT WITH PLAN OF CARE. CURRENT RUSLAN SCORE IS 14.
[2018-11-07] MEDS: Magnesium 1GM/D5W 100ML PREMIX 100 ML IV SCH ×4 (11:24→14:43)
[2018-11-07] MEDS: IV NS 0.9% 1,000 ML IV PRN ×2 (13:21→22:59)
[2018-11-07] MEDS: LORAZEPAM INJ 2 MG/ML VIAL IV PRN ×2 (14:53→23:22)
--- NOTE | 2018-11-07 15:05 | NUR ---
PRN Ativan administrated per patient's request
[2018-11-07 16:00] VITALS: BP 114/81
--- NOTE | 2018-11-07 18:44 | NUR ---
PT IN BED ASLEEP. ALL NEED ATTENDED. KEPT CLEAN AND DRY. PT IS ALERT AND ORIENTED X4. PATIENT AWATING TO TRANSFER TO [facility] FOR TIPS PROCEDURE. NO ACUTE DISTRESS, SATURATING WELL ON ROOM AIR. NO SIGN OF RESPIRATORY DISTRESS OR SOB NOTED. IV LINE ON R HAND #20 NS @75 ML/HR. SAFETY AND FALL PRECAUTIONS OBSERVED. BED AT THE LOWEST POSITION AND LOCKED, SIDE RAILS UPX2, CALL LIGHT WITHIN THE REACH. . WILL ENDORSE TO NEXT SHIFT NURSE FOR AISSATOU.
[2018-11-07 20:00] VITALS: BP 93/64
[2018-11-08 04:00] VITALS: BP 99/71
[2018-11-08] MEDS: LACTULOSE 10 G/15 ML UDC (PYXIS) PO SCH ×4 (04:19→23:05)
--- NOTE | 2018-11-08 05:19 | NUR ---
RN NOTES PATIENT AWAKE IN BED, ALERT AND ORIENTED. VERBALLY ABLE TO COMMUNICATE NEEDS. IN NO APPARENT DISTRESS. BREATHING EVEN AND UNLABORED. NO PHYSICAL MANIFESTATION OF PAIN OR DISCOMFORT. NO SIGNIFICANT CHANGE OF CONDITION. KEPT CLEAN AND DRY. WILL ENDORSE TO NEXT SHIFT FOR CONTINUITY OF CARE
--- NOTE | 2018-11-08 07:30 | NUR ---
MS RN OPENING NOTE RECEIVED REPORT FROM NOC SHIFT. PT AWAKE IN BED, ALERT AND ORIENTED X 4, ON ROOM AIR, SATURATING WELL, NO SIGNS OF RESPIRATORY DISTRESS NOTED. NS INFUSING INTO RIGHT HAND G18, NO SIGNS OF INFILTRATION NOTED. BED IN LOW POSITION, LOCKED, CALL LIGHT WITHIN REACH.
[2018-11-08] MEDS: SUCRALFATE 1 G/10 ML UDC GT SCH ×4 (07:41→20:44)
[2018-11-08 08:00] VITALS: BP 88/61
[2018-11-08] MEDS: NEXIUM 40 MG VIAL IV SCH ×2 (08:19→20:41)
[2018-11-08] MEDS: THIAMINE HCL 100 MG TABLET PO SCH (08:19)
[2018-11-08] MEDS: LEVETIRACETAM (250 MG) 250 MG TABLET PO SCH ×2 (08:19→20:44)
[2018-11-08] MEDS: FOLIC ACID 1 MG TABLET PO SCH (08:19)
[2018-11-08] MEDS: RIFAXIMIN 550 MG TABLET PO SCH ×2 (08:19→16:39)
[2018-11-08 08:28] LABS: CALCIUM, SERUM 7.6 mg/dL (8.5-10.1); CREATININE 0.8 mg/dL (0.6-1.3); MAGNESIUM 1.4 mg/dL (1.8-2.4); POTASSIUM 3.2 mmol/L (3.5-5.1)
[2018-11-08] MEDS: POTASSIUM CHLORIDE 20 MEQ TAB.PRT.SR PO SCH ×2 (10:38→11:40)
[2018-11-08] MEDS: Magnesium 1GM/D5W 100ML PREMIX 100 ML IV SCH ×4 (10:39→13:45)
[2018-11-08 12:00] VITALS: BP 106/73
[2018-11-08] MEDS: ENSURE CLEAR 237 ML LIQUID (MIX BERRY) PO SCH ×2 (13:43→16:40)
[2018-11-08] MEDS ORDERED: Magnesium 1GM/D5W 100ML PREMIX PIGGYBACK IV ONE (15:30)
--- NOTE | 2018-11-08 18:33 | NUR ---
MS RN CLOSING NOTE PT AWAKE IN BED, ALERT AND ORIENTED X 4, ON ROOM AIR, SATURATING WELL, RESPIRATIONS EASY AND UNLABORED. BED IN LOW POSITION, LOCKED, CALL LIGHT WITHIN REACH. IV SITE ON RIGHT HAND G20 PATENT, NO SIGNS OF INFILTRATION NOTED. PROVIDED SAFETY AND COMFORT TO PT THROUGHOUT SHIFT. WILL ENDORSE TO NOC SHIFT NURSE.
[2018-11-08 20:00] VITALS: BP 116/79
[2018-11-08] MEDS: LORAZEPAM INJ 2 MG/ML VIAL IV PRN (20:42)
[2018-11-08] MEDS: HYDROCODONE/APAP 10/325MG 1 EA TABLET PO PRN (20:42)
[2018-11-08] MEDS: IV NS 0.9% 1,000 ML IV PRN (20:43)
[2018-11-08] MEDS: OCTREOTIDE 1,250 MCG in IV NS 0.9% 247.5 ML IV PRN (20:44)
[2018-11-09 04:00] VITALS: BP 112/82
[2018-11-09] MEDS: LACTULOSE 10 G/15 ML UDC (PYXIS) PO SCH ×4 (05:42→22:01)
--- NOTE | 2018-11-09 06:11 | NUR ---
RN NOTES PATIENT IN BED, AWAKE, ALERT AND ORIENTED, VERBAL WITH NO APPARENT DISTRESS. BREATHING EVEN AND UNLABORED. ROOM AIR WELL TOLERATED. GIVEN NORCO X 1 FOR COMPLAINT OF BACK AND ABDOMINAL PAIN, WITH RELIEF. VITAL SIGNS WNL. STILL ON CLEAR LIQUID DIET. KEPT CLEAN AND DRY. NEEDS ATTENDED. WILL ENDORSE TO NEXT SHIFT FOR CONTINUITY OF CARE.
[2018-11-09 06:56] LABS: CALCIUM, SERUM 7.3 mg/dL (8.5-10.1); CREATININE 0.6 mg/dL (0.6-1.3); MAGNESIUM 1.4 mg/dL (1.8-2.4); POTASSIUM 3.5 mmol/L (3.5-5.1)
--- NOTE | 2018-11-09 07:47 | NUR ---
RN OPENING NOTES RECEIVED PATIENT RESTING IN BED. HE IS AOX4, VERBAL, AND AMBULATORY WITH ASSIST. HE DENIES ANY PAIN OR SOB AT THIS TIME. HE HAS A 20 G ON RHAND, INTACT. HE IS ON A CLEAR LIQUID DIET. HE IS ON RA, TOLERATING WELL, NO S/SX OF RESP DISTRESS OR SOB. UPON ASSESSMENT, PATIENT'S PENIS AND SCROTUM ARE SWOLLEN, PT CLAIMS IT HAPPENED THIS MORNING, DENIES PAIN. SAFETY MEASURES HAVE BEEN IMPLEMENTED, CALL LIGHT IS WITHIN REACH, BED IN LOWEST AND LOCKED POSITION, SIDE RAILS UP X2, WILL CONTINUE TO MONITOR FOR ANY CHANGES
[2018-11-09] MEDS: SUCRALFATE 1 G/10 ML UDC GT SCH ×4 (07:58→21:01)
[2018-11-09 08:00] VITALS: BP 106/72
[2018-11-09] MEDS: ENSURE CLEAR 237 ML LIQUID (MIX BERRY) PO SCH (08:02)
[2018-11-09] MEDS: HYDROCODONE/APAP 10/325MG 1 EA TABLET PO PRN ×3 (08:09→19:39)
[2018-11-09] MEDS: NEXIUM 40 MG VIAL IV SCH ×2 (09:01→20:46)
[2018-11-09] MEDS: FOLIC ACID 1 MG TABLET PO SCH (09:01)
[2018-11-09] MEDS: THIAMINE HCL 100 MG TABLET PO SCH (09:01)
[2018-11-09] MEDS: LEVETIRACETAM (250 MG) 250 MG TABLET PO SCH ×2 (09:01→20:46)
[2018-11-09] MEDS: RIFAXIMIN 550 MG TABLET PO SCH ×2 (09:01→16:42)
--- NOTE | 2018-11-09 11:03 | NUR ---
HAYLEE BOYCE NP, IS AWARE OF SWOLLEN GROIN. NO ORDERS AT THIS TIME, WILL MONITOR FOR ANY CHANGES
[2018-11-09] MEDS: MAGNESIUM OXIDE 400 MG TABLET PO SCH ×2 (11:23→21:02)
[2018-11-09] MEDS: FUROSEMIDE 20 MG TABLET PO SCH (13:00)
[2018-11-09] MEDS: SPIRONOLACTONE 25 MG TABLET PO SCH (13:00)
[2018-11-09 16:00] VITALS: BP 114/87
--- NOTE | 2018-11-09 19:05 | NUR ---
RN CLOSING NOTES PATIENT IS RESTING IN BED COMFORTABLY, HE DENIES ANY PAIN OR DISCOMFORT AT THIS TIME. HE IS AOX4, VERBAL, AND AMBULATORY WITH ASSIST. PATIENTS NEEDS HAVE BEEN MET. NO SOB OR RESP DISTRESS NOTED. SAFETY MEASURES HAVE BEEN IMPLEMENTED, CALL LIGHT IS WITHIN REACH, BED IS IN LOWEST AND LOCKED POSITION, SIDE RAILS UP X2, ENDORSED TO NIGHTSHIFT RN FOR CONTINUAL CARE.
--- NOTE | 2018-11-09 19:30 | NUR ---
MS RN OPENING NOTES Received patient A/O x4, awake, on semi-Yang's position on bed. On RA, no SOB/respiratory distress noted. With complaints of pain 10/10 on abdomen, patient watching TV and calm. Kept on bed clean, dry and comfortable. On fall precautions, call light within easy reach. Administered due meds as ordered. Will continue to monitor accordingly.
[2018-11-09 20:00] VITALS: BP 119/88
[2018-11-10] MEDS: HYDROCODONE/APAP 10/325MG 1 EA TABLET PO PRN ×3 (02:07→22:19)
[2018-11-10] MEDS: OCTREOTIDE 1,250 MCG in IV NS 0.9% 247.5 ML IV PRN (03:46)
[2018-11-10 04:00] VITALS: BP 99/72
[2018-11-10] MEDS: LACTULOSE 10 G/15 ML UDC (PYXIS) PO SCH ×4 (04:25→23:03)
--- NOTE | 2018-11-10 06:22 | NUR ---
MS RN CLOSING NOTES Patient asleep, easily awaken, on Yang's position on bed. On RA, no SOB/respiratory distress noted. Medicated for pain, noted effective. Patient claimed he has not slept well within the shift. No N/V noted, abdomen remained distended. All due meds given as ordered, no ASE noted. BM x2 noted, soft, formed. All nursing needs attended. No new complaints made. Kept on bed clean, dry and comfortable. On fall precautions, call light within easy reach. With peripheral Iv line R Hand G#20 with Sandostatin infusing well @ 10ml/hr (50mcg/hr) as ordered. Endorsed to the next shift.
[2018-11-10 07:01] LABS: BASOPHILS % (AUTO) 0.2 % (0.0-2.0); EOSINOPHILS % (AUTO) 6.2 % (0.0-6.0); HEMATOCRIT 30 % (39-51); HEMOGLOBIN 9.8 g/dL (13.5-17.5); LYMPHOCYTES # (AUTO) 2.8 /CMM (0.8-4.8); LYMPHOCYTES % (AUTO) 32.2 % (20.0-44.0); MEAN CORPUSCULAR HGB CONC 33 g/dl (31.0-36.0); MEAN CORPUSCULAR VOLUME 95 fL (80-96); MONOCYTES # (AUTO) 0.8 /CMM (0.1-1.30); MONOCYTES % (AUTO) 9.1 % (2.0-12.0); NEUTROPHILS # (AUTO) 4.5 /CMM (1.8-8.9); NEUTROPHILS % (AUTO) 52.3 % (43.0-81.0); PLATELET COUNT (AUTO) 252 /CMM (150-450); RED BLOOD CELL COUNT(AUTO) 3.17 MIL/uL (4.5-6.0); WHITE BLOOD COUNT (AUTO) 8.6 K/uL (4.3-11.0)
--- NOTE | 2018-11-10 07:20 | NUR ---
RN MS OPENING NOTES RECEIVED PATIENT RESTING IN BED. HE IS AOX4, VERBAL. ON ROOM AIR SATURATING WELL. NO SIGN OF ACUTE RESPIRATORY DISTRESS OR SOB AT THIS TIME. HE HAS A 20 G ON RHAND, INTACT. SANDOSTATIN RUNNING @ 10 ML/HR. PT COMPLAINS F SEVERE PAIN IN HIS GROIN AND ABDOMEN. GRAIN AREA IS SWOLLEN. PAIN MED WILL BE GIVEN. SAFETY MEASURES HAVE BEEN IMPLEMENTED, CALL LIGHT IS WITHIN REACH, BED IN LOWEST AND LOCKED POSITION, SIDE RAILS UP X2, BED ALARM ON. URINAL AND COMMODE AT BEDSIDE. INSTRUCTED TO USE CALL LIGHT IF HE NEEDS TO USE WILL CONTINUE TO MONITOR FOR ANY CHANGES
[2018-11-10 07:32] LABS: CALCIUM, SERUM 7.5 mg/dL (8.5-10.1); CREATININE 0.8 mg/dL (0.6-1.3); POTASSIUM 3.6 mmol/L (3.5-5.1)
[2018-11-10 07:43] LABS: PHOSPHORUS 4.3 mg/dL (2.5-4.9)
[2018-11-10 07:52] LABS: MAGNESIUM 1.2 mg/dL (1.8-2.4)
[2018-11-10 08:00] VITALS: BP 103/72
[2018-11-10] MEDS: RIFAXIMIN 550 MG TABLET PO SCH ×2 (08:57→17:22)
[2018-11-10] MEDS: FOLIC ACID 1 MG TABLET PO SCH (08:57)
[2018-11-10] MEDS: LEVETIRACETAM (250 MG) 250 MG TABLET PO SCH ×2 (08:57→21:24)
[2018-11-10] MEDS: FUROSEMIDE 20 MG TABLET PO SCH (08:57)
[2018-11-10] MEDS: THIAMINE HCL 100 MG TABLET PO SCH (08:57)
[2018-11-10] MEDS: SPIRONOLACTONE 25 MG TABLET PO SCH (08:58)
[2018-11-10] MEDS: SUCRALFATE 1 G/10 ML UDC GT SCH ×4 (08:58→22:14)
[2018-11-10] MEDS: NEXIUM 40 MG VIAL IV SCH ×2 (08:59→21:24)
--- NOTE | 2018-11-10 09:30 | NUR ---
RN MS NOTE HAD A CALL FROM PHARMACY AND THEY ASK TO ASK THE DR IF PT IS STILL NEEDED TO HAVE CONTINUOUS SANDOSTATIN. HAYLEE BOYCE N.P. MADE AWARE. WILL FOLLOW UP.
--- NOTE | 2018-11-10 10:03 | NUR ---
RN MS NOTE HAYLEE BOYCE NP, AT BED SIDE AND MADE AWARE OF THE SWOLLEN AND RED GROIN. INSTRUCTED TO PUT ZGUARD AND SHE SAID SHE WILL ORDER WOUND CONSULT. SHE ALSO SAID THAT SHE WILL D/C SANDOSTATIN.
[2018-11-10] MEDS: Magnesium 1GM/D5W 100ML PREMIX 100 ML IV SCH ×4 (11:06→16:58)
[2018-11-10] MEDS: PROPRANOLOL HCL 10 MG TABLET PO SCH ×2 (12:27→21:23)
[2018-11-10 16:00] VITALS: BP 91/64
--- NOTE | 2018-11-10 16:05 | NUR ---
MS RN NOTE PT TESTICULARS ARE SO SWOLLEN AND TENDER TO TOUCH. PT COMPLAINS OF SEVERE PAIN. HAYLEE BOYCE N.P. MADE AWARE. MORPHINE 1 MG ORDERED. WILL CONT' TO MONITOR.
[2018-11-10] MEDS ORDERED: MORPHINE SULFATE INJ 2 MG/ML DISP.SYRIN IV ONE (17:00)
--- NOTE | 2018-11-10 19:35 | NUR ---
RN CLOSING NOTES PATIENT IS RESTING IN BED COMFORTABLY. PT AOX4, VERBAL, PATIENTS NEEDS HAVE BEEN MET. NO SOB OR RESP DISTRESS NOTED. SAFETY MEASURES HAVE BEEN IMPLEMENTED, CALL LIGHT IS WITHIN REACH, BED IS IN LOWEST AND LOCKED POSITION, SIDE RAILS UP X2, ENDORSED TO NIGHTSHIFT RN FOR CONTINUAL CARE.
--- NOTE | 2018-11-10 19:42 | NUR ---
MS RN OPENING NOTES, RECEIVED PATIENT RESTING IN BED. HE IS AOX4, VERBAL. ON ROOM AIR SATURATING WELL. NO SIGN OF ACUTE RESPIRATORY DISTRESS OR SOB AT THIS TIME. PATIENT HAS A 20 G IV ON R.HAND, INTACT. SAFETY MEASURES HAVE BEEN IMPLEMENTED, CALL LIGHT IS WITHIN REACH, BED IN LOWEST AND LOCKED POSITION, SIDE RAILS UP X2, BED ALARM ON. URINAL AND COMMODE AT BEDSIDE. INSTRUCTED TO USE CALL LIGHT IF HE NEEDS TO USE. WILL CONTINUE TO MONITOR.
[2018-11-10 20:00] VITALS: BP 92/61
[2018-11-10] MEDS: MAGNESIUM OXIDE 400 MG TABLET PO SCH (22:13)
[2018-11-11 04:00] VITALS: BP 92/61
[2018-11-11] MEDS: HYDROCODONE/APAP 10/325MG 1 EA TABLET PO PRN ×3 (04:46→18:33)
[2018-11-11] MEDS: LACTULOSE 10 G/15 ML UDC (PYXIS) PO SCH ×4 (04:52→22:17)
[2018-11-11 06:15] LABS: BASOPHILS # (AUTO) 0.1 /CMM (0.0-0.2); BASOPHILS % (AUTO) 1.3 % (0.0-2.0); EOSINOPHILS % (AUTO) 6.8 % (0.0-6.0); HEMATOCRIT 29 % (39-51); HEMOGLOBIN 9.7 g/dL (13.5-17.5); LYMPHOCYTES # (AUTO) 2.4 /CMM (0.8-4.8); LYMPHOCYTES % (AUTO) 30.4 % (20.0-44.0); MEAN CORPUSCULAR HGB CONC 33 g/dl (31.0-36.0); MEAN CORPUSCULAR VOLUME 92 fL (80-96); MONOCYTES # (AUTO) 0.7 /CMM (0.1-1.30); MONOCYTES % (AUTO) 8.8 % (2.0-12.0); NEUTROPHILS # (AUTO) 4.2 /CMM (1.8-8.9); NEUTROPHILS % (AUTO) 52.7 % (43.0-81.0); PLATELET COUNT (AUTO) 269 /CMM (150-450); RED BLOOD CELL COUNT(AUTO) 3.19 MIL/uL (4.5-6.0)
[2018-11-11 06:32] LABS: CALCIUM, SERUM 7.5 mg/dL (8.5-10.1); CREATININE 0.6 mg/dL (0.6-1.3); MAGNESIUM 1.5 mg/dL (1.8-2.4); PHOSPHORUS 4.4 mg/dL (2.5-4.9); POTASSIUM 3.5 mmol/L (3.5-5.1)
--- NOTE | 2018-11-11 07:15 | NUR ---
RN OPENING NOTES RECEIVED PATIENT AWAKE AND RESTING IN HIS BED, DENIES ANY PAIN OR DISCOMOFRT AT THIS TIME. HE IS AOX4, VERBAL, AND AMBULATORY ASSIST. HE IS ON RA, TOLERATING WELL, NO SOB. PENIS AND GROIN IS STILL SWOLLEN, APPEARS TO BE INCREASING IN SIZE. WILL CONTINUE TO MONITOR. HE IS ON FULL LIQUID DIET, WILL ADVANCE TOLERATED. IV SITE ON RHAND 20 G IS INTACT AND PATENT. SAFETY MEASURES HAVE BEEN IMPLEMTNED, CALL LIGHT IS WITHIN REACH, BED IS IN LOWEST AND LOCKED POSITION, SIDE RAILS UP X2, WILL CONTINUE TO MONITOR FOR ANY CHANGES
--- NOTE | 2018-11-11 07:20 | NUR ---
MS RN CLOSING NOTES, PATIENT RESTING IN BED. HE IS AOX4, VERBAL. ON ROOM AIR SATURATING WELL. NO SIGN OF ACUTE RESPIRATORY DISTRESS OR SOB AT THIS TIME. PATIENT HAS A 20 G IV ON R.HAND, INTACT. SAFETY MEASURES HAVE BEEN IMPLEMENTED, CALL LIGHT IS WITHIN REACH, BED IN LOWEST AND LOCKED POSITION, SIDE RAILS UP X2, BED ALARM ON. URINAL AND COMMODE AT BEDSIDE. INSTRUCTED TO USE CALL LIGHT IF HE NEEDS TO USE. WILL ENDORSE TO AM RN FOR AISSATOU.
[2018-11-11 08:00] VITALS: BP 94/61
[2018-11-11] MEDS: SUCRALFATE 1 G/10 ML UDC GT SCH ×4 (08:23→21:10)
[2018-11-11] MEDS: RIFAXIMIN 550 MG TABLET PO SCH ×2 (08:29→16:47)
[2018-11-11] MEDS: ACETAMINOPHEN 325 MG TABLET PO PRN (08:29)
[2018-11-11] MEDS: PROPRANOLOL HCL 10 MG TABLET PO SCH ×2 (08:30→21:12)
[2018-11-11] MEDS: NEXIUM 40 MG VIAL IV SCH ×2 (08:31→21:16)
[2018-11-11] MEDS: FOLIC ACID 1 MG TABLET PO SCH (08:32)
[2018-11-11] MEDS: LEVETIRACETAM (250 MG) 250 MG TABLET PO SCH ×2 (08:32→21:11)
[2018-11-11] MEDS: THIAMINE HCL 100 MG TABLET PO SCH (08:33)
[2018-11-11] MEDS: SPIRONOLACTONE 25 MG TABLET PO SCH (08:33)
[2018-11-11] MEDS: FUROSEMIDE 20 MG TABLET PO SCH (08:33)
[2018-11-11] MEDS: Magnesium 1GM/D5W 100ML PREMIX 100 ML IV SCH ×2 (10:19→11:23)
--- NOTE | 2018-11-11 10:56 | NUR ---
WOUND CARE CONSULT: PT PRESENTS WITH RED RASH TO ANTERIOR THIGHS AND SWELLING TO PENIS AND SCROTUM. DEFER TO MD. PT IS AMBULATORY AND CONTINENT. WILL SEE PRN.
--- NOTE | 2018-11-11 15:07 | NUR ---
SCROTUM AND PENIS IS STILL SWOLLEN. CLEANSED WITH NS, APPLIED Z GUARD CREAM, AND IS ELEVATED. RASH ON BILATERAL THIGHS HAS NO CHANGE WILL CONTINUE TO MONITOR.
[2018-11-11 16:00] VITALS: BP 92/59
[2018-11-11] MEDS ORDERED: LACTULOSE 10 G/15 ML UDC (PYXIS) PO PRN (16:30)
[2018-11-11] MEDS ORDERED: diphenhydrAMINE HCL ELIX 25 MG/10 ML UDC PO PRN (17:30)
--- NOTE | 2018-11-11 19:10 | NUR ---
MS RN OPENING NOTES RECEIVED PATIENT AWAKE, A/OX4. PT RESTING IN HIS BED, DENIES ANY PAIN OR DISCOMFORT AT THE MOMENT. PER REPORT, PT AMBULATORY WITH ASSIST. HE IS ON RA, TOLERATING WELL, NO SOB OR RESPIRATORY DISTRESS NOTED. IV SITE ON R HAND 20G FLUSHING AND PATENT, SITE C/D/I, TKO AT 3ML/HR. SAFETY MEASURES IN PLACE; CALL LIGHT WITHIN REACH, BED IS IN LOWEST AND LOCKED POSITION, SIDE RAILS UP X2, WILL CONTINUE TO MONITOR PT.
--- NOTE | 2018-11-11 19:17 | NUR ---
RN CLOSING NOTES PATIENT IS RESTING IN BED COMFORTABLY, DENIES ANY PAIN OR DISCOMFORT AT THIS TIME. PT NEEDS HAVE BEEN MET. NO ACUTE CHANGES OCCURRED DURING THE SHIFT. VITAL SIGNS ARE STABLE. DENIES ANY SOB AT THIS TIME. SAFETY MEASURES HAVE BEEN IMPLEMENTED, CALL LIGHT IS WITHIN REACH, BED IS IN LOWEST AND LOCKED POSITION, SIDE RAILS UP X2, PT HAS BEEN ENDORSED TO NIGHTSHIFT RN FOR CONTINUAL CARE
[2018-11-11 20:00] VITALS: BP 113/60
[2018-11-11] MEDS: MAGNESIUM OXIDE 400 MG TABLET PO SCH (21:26)
[2018-11-12] MEDS: HYDROCODONE/APAP 10/325MG 1 EA TABLET PO PRN ×3 (00:34→18:26)
[2018-11-12 04:00] VITALS: BP 101/69
[2018-11-12] MEDS: LACTULOSE 10 G/15 ML UDC (PYXIS) PO SCH ×3 (05:27→16:28)
--- NOTE | 2018-11-12 07:15 | NUR ---
MS RN CLOSING NOTES PATIENT IN BED, AWAKE, A/OX4. NO ACUTE CHANGES THROUGHOUT SHIFT. DENIES ANY PAIN OR DISCOMFORT AT THE MOMENT. ON ROOM AIR, TOLERATING WELL, NO SOB OR RESPIRATORY DISTRESS NOTED. IV SITE ON R HAND 20G FLUSHING AND PATENT, SITE C/D/I, TKO AT 3ML/HR. SAFETY MEASURES MAINTAINED; CALL LIGHT WITHIN REACH, BED IS IN LOWEST AND LOCKED POSITION, SIDE RAILS UP X2. URINAL AT BEDSIDE. ALL MD ORDERS ATTENDED, ALL NEEDS ANTICIPATED AND MET. ENDORSED TO AM RN FOR AISSATOU.
--- NOTE | 2018-11-12 07:30 | NUR ---
MS/RN OPENING NOTES RECEIVED PATIENT IN BED AWAKE, ALERT AND ORIENTED X4. ABLE TO MAKE NEEDS KNOWN. NO PAIN OR ACUTE DISTRESS AT THIS TIME. RESPIRATION EVEN AND UNLABORED. SKIN IS DRY WARM TO TOUCH. ON ROOM AIR, TOLERATING WELL. NOTED WITH IV SITE ON RIGHT HAND #20G. INTACT AND PATENT. FLUSHING WELL. NO S/S OF INFECTION OR INFILTRATION. ALL NEEDS ANTICIPATED. CALL LIGHT WITHIN REACHED. SAFETY MAINTAINED. BED LOCKED AND IN LOWEST POSITION. WILL CONTINUE TO MONITOR CLOSELY.
[2018-11-12 08:00] VITALS: BP 128/65
[2018-11-12] MEDS: RIFAXIMIN 550 MG TABLET PO SCH ×2 (08:37→16:28)
[2018-11-12] MEDS: FOLIC ACID 1 MG TABLET PO SCH (08:37)
[2018-11-12] MEDS: SUCRALFATE 1 G/10 ML UDC GT SCH ×4 (08:37→22:22)
[2018-11-12] MEDS: SPIRONOLACTONE 25 MG TABLET PO SCH (08:38)
[2018-11-12] MEDS: FUROSEMIDE 20 MG TABLET PO SCH (08:38)
[2018-11-12] MEDS: LEVETIRACETAM (250 MG) 250 MG TABLET PO SCH ×2 (08:38→21:12)
[2018-11-12] MEDS: PROPRANOLOL HCL 10 MG TABLET PO SCH ×2 (08:39→21:12)
[2018-11-12] MEDS: THIAMINE HCL 100 MG TABLET PO SCH (08:39)
[2018-11-12] MEDS: NEXIUM 40 MG VIAL IV SCH (08:51)
--- NOTE | 2018-11-12 13:00 | NUR ---
MS/RN NOTES RECEIVED A PHONE CALL FOR[employer]IT[employer] TO PLACE AN ORDER FOR HIS WOUND ON THE SCROTUM AREA. TALITA RAMÍREZ WAS ALSO AWARE OF THE ORDER. ALL ORDERS NOTED AND CARRIED OUT. PATIENT REMAINS IN STABLE CONDITION. WILL CONTINUE TO MONITOR.
[2018-11-12 14:08] LABS: BASOPHILS # (AUTO) 0.1 /CMM (0.0-0.2); BASOPHILS % (AUTO) 1.6 % (0.0-2.0); EOSINOPHILS % (AUTO) 5.8 % (0.0-6.0); HEMATOCRIT 28 % (39-51); HEMOGLOBIN 9.3 g/dL (13.5-17.5); LYMPHOCYTES % (AUTO) 25.7 % (20.0-44.0); MEAN CORPUSCULAR HGB CONC 34 g/dl (31.0-36.0); MEAN CORPUSCULAR VOLUME 92 fL (80-96); MONOCYTES # (AUTO) 0.5 /CMM (0.1-1.30); MONOCYTES % (AUTO) 6.8 % (2.0-12.0); NEUTROPHILS # (AUTO) 4.6 /CMM (1.8-8.9); NEUTROPHILS % (AUTO) 60.1 % (43.0-81.0); PLATELET COUNT (AUTO) 257 /CMM (150-450); RED BLOOD CELL COUNT(AUTO) 3.02 MIL/uL (4.5-6.0); WHITE BLOOD COUNT (AUTO) 7.7 K/uL (4.3-11.0)
[2018-11-12 14:32] LABS: CALCIUM, SERUM 7.4 mg/dL (8.5-10.1); CREATININE 0.7 mg/dL (0.6-1.3); PHOSPHORUS 4.8 mg/dL (2.5-4.9); POTASSIUM 3.3 mmol/L (3.5-5.1)
[2018-11-12 14:33] LABS: MAGNESIUM 1.2 mg/dL (1.8-2.4)
[2018-11-12 16:00] VITALS: BP_SYST 104; BP_SYST 110; BP_DIAS 69
[2018-11-12] MEDS ORDERED: PANTOPRAZOLE 40 MG VIAL IV SCH (17:00)
--- NOTE | 2018-11-12 18:46 | NUR ---
MS/RN NOTES TRIED SEVERAL TIMES TO DO TREATMENT ON THE SCROTUM. PATIENT CONTINUES TO REFUSE THE TREATMENT. EXPLAINED RISK AND BENEFITS X3. STILL REFUSED. PATIENT REMAINS IN STABLE CONDITION. WILL CONTINUE TO MONITOR.
--- NOTE | 2018-11-12 18:57 | NUR ---
MS/RN NOTES SPOKE TO CM REGARDING PATIENT THAT HE WILL BE TRANSFERRED TO [facility]. ACCORDING TO CM WE WILL BE RECEIVING A PHONE CALL REGARDING THE INFORMATION OF THE TRANSFER.
--- NOTE | 2018-11-12 18:58 | NUR ---
MS/RN NOTES PAGED TALITA RAMÍREZ TO INFORM HIM ABOUT THE PATIENT TO BE TRANSFERRED TO [facility]. STILL AWAITING CALL BACK.
--- NOTE | 2018-11-12 19:27 | NUR ---
MS/RN CLOSING NOTES PATIENT CONTINUES TO REMAIN IN STABLE CONDITION. PROVIDED COMFORT AND SAFETY THROUGHOUT THE SHIFT. ENDORSED TO PM NURSE ALL THE INFORMATION REGARDING THE TRANSFER. PATIENT IN THE ROOM WAITING TO BE PICKED TO GO TO [facility].
--- NOTE | 2018-11-12 19:30 | NUR ---
MS TONI Blanco NOTES, RECEIVED PATIENT IN BED A/O X4. PATIENT IN STABLE CONDITION. NO S/S OF RESP. DISTRESS. PATIENT ON ROOM AIR SATURATING WELL, 98%. IV ON R HAND PATENT AND NO S/S OF INFILTRATION.PATIENT WILL BE TRANSFERRED TO [facility] BEFORE MID NIGHT. WILL CONTINUE CARE. BED IS LOW/LOCKED, CALL LIGHT WITHIN REACH.
[2018-11-12 20:00] VITALS: BP 91/70
[2018-11-12 20:04] LABS: APPEARANCE,URINE CLEAR (CLEAR); BILIRUBIN,URINE NEGATIVE (NEGATIVE); BLOOD, URINE NEGATIVE Ery/uL (NEGATIVE); COLOR,URINE YELLOW (YELLOW); KETONES,URINE TRACE (NEGATIVE); LEUKOCYTE ESTERASE ,URINE NEGATIVE (NEGATIVE); NITRITE, URINE NEGATIVE (NEGATIVE); PROTEIN,URINE NEGATIVE (NEGATIVE); UGLUCOSE NEGATIVE (NEGATIVE); UROBILINOGEN,URINE 0.2 EU/dL (0.2)
--- NOTE | 2018-11-12 20:30 | NUR ---
MS RN NOTE, GAVE REPORT TO CHRISTAL MUÑOZ AT [facility] AT 2030 . PATIENT WILL BE TRANSFERRED 5 S[address]TH ROOM #[id number] FOR HIGHER CARE.
[2018-11-12 20:38] LABS: BACTERIA,URINE Few /HPF (None Seen); RBC,URINE NONE SEEN /HPF (0-2); SQUAMOUS EPITHELIAL CELL,UR Rare /HPF (None Seen); WBC,URINE 0-2 /HPF (0-3)
[2018-11-12 21:12] VITALS: BP 91/70
[2018-11-12] MEDS: MAGNESIUM OXIDE 400 MG TABLET PO SCH (22:23)
--- NOTE | 2018-11-12 22:45 | NUR ---
MS RN NOTES, PATIENT IS STABLE. A/O X4. NO S/S OF ACUTE DISTRESS AT THIS TIME. CONSENT FORM SIGNED BY PATIENT. PATIENT USED BED SIDE COMMODE WITH NO PROBLEM. GAVE REPORT TO TRANSFER TEAM, AND PATIENT WAS TRANSFERRED TO [facility] FOR HIGHER CARE.
== END 2018-11-12 23:28 | disposition short-term general hospital (02) | DRG 197 ==
LOC: ER 19:09 → TELE 10-25 00:57 → MED 10-25 07:49 → TELE 10-27 04:38 → MED 10-27 12:33 → ICU 11-02 14:00 → TELE1 11-03 16:21 → ICU 11-03 16:30 → TELE1 11-03 17:30 → MEDSG1 11-05 11:00
PROVIDERS: ADMIT Hospitalist; ATTEND Hospitalist
PROC: 30233K1 Transfusion of Nonautologous Frozen Plasma into Peripheral Vein, Percutaneous Approach (ICD-10-PCS; 2018-10-27)
PROC: 0DJ08ZZ Inspection of Upper Intestinal Tract, Via Natural or Artificial Opening Endoscopic (ICD-10-PCS; principal; 2018-10-28)
PROC: 30233N1 Transfusion of Nonautologous Red Blood Cells into Peripheral Vein, Percutaneous Approach (ICD-10-PCS; 2018-10-30)
DX: I86.4 Gastric varices (principal); R65.11 Systemic inflammatory response syndrome (SIRS) of non-infectious origin with acute organ dysfunction; I85.11 Secondary esophageal varices with bleeding; E43 Unspecified severe protein-calorie malnutrition; D68.4 Acquired coagulation factor deficiency; D68.9 Coagulation defect, unspecified; E66.01 Morbid (severe) obesity due to excess calories; D62 Acute posthemorrhagic anemia; E87.2 Acidosis; I85.00 Esophageal varices without bleeding; K76.6 Portal hypertension; E83.42 Hypomagnesemia; K70.31 Alcoholic cirrhosis of liver with ascites; E87.1 Hypo-osmolality and hyponatremia; K86.1 Other chronic pancreatitis; G40.909 Epilepsy, unspecified, not intractable, without status epilepticus; K64.8 Other hemorrhoids; K62.1 Rectal polyp; F10.20 Alcohol dependence, uncomplicated; K31.9 Disease of stomach and duodenum, unspecified; D63.8 Anemia in other chronic diseases classified elsewhere; F17.200 Nicotine dependence, unspecified, uncomplicated; M48.54XA Collapsed vertebra, not elsewhere classified, thoracic region, initial encounter for fracture; N39.0 Urinary tract infection, site not specified; Z91.14 Patient's other noncompliance with medication regimen; Z91.19 Patient's noncompliance with other medical treatment and regimen; Z68.1 Body mass index [BMI] 19.9 or less, adult; K44.9 Diaphragmatic hernia without obstruction or gangrene; E51.9 Thiamine deficiency, unspecified; Z79.899 Other long term (current) drug therapy; Z86.73 Personal history of transient ischemic attack (TIA), and cerebral infarction without residual deficits; M25.552 Pain in left hip; S80.212A Abrasion, left knee, initial encounter; W18.30XA Fall on same level, unspecified, initial encounter; Y92.009 Unspecified place in unspecified non-institutional (private) residence as the place of occurrence of the external cause; K70.40 Alcoholic hepatic failure without coma; F41.9 Anxiety disorder, unspecified; Z98.890 Other specified postprocedural states; N50.89 Other specified disorders of the male genital organs; N43.3 Hydrocele, unspecified; L29.9 Pruritus, unspecified; K31.89 Other diseases of stomach and duodenum; K25.9 Gastric ulcer, unspecified as acute or chronic, without hemorrhage or perforation
CPT/HCPCS: 36415; 36600; 71045-TC; 73502; 76870-TC; 80048-TC; 80053-TC; 80061-TC; 80076-TC; 81000-TC; 82140-TC; 82803-TC; 82962-TC; 83605-TC; 83690-TC; 83735-TC; 84100-TC; 84484-TC; 85025-TC; 85027-TC; 85385-TC; 85610-TC; 85730-TC; 86850-TC; 86921-TC; 87040-TC; 87081-TC; 87086-TC; 87186-TC; A4216; A6403; C9113; G0378; J0330; J0696; J1800; J1953; J2060; J2250; J2270; J2354; J2405; J2704; J2765; J3010; J3411; J3475; J3480; J3490; J7030; J7040; J7050; J7060; J7120; P9016-BL; P9017-BL; Q0163; Q9967